=== PATIENT | male | born 1940 ===

== ENCOUNTER 2016-06-19 18:43 | Inpatient (IN) | payer MEDICARE, OTHER ==
[2016-06-19] MEDS ORDERED: PANTOPRAZOLE 40 MG/10 ML VIAL IVP STA (20:44)
[2016-06-19] MEDS ORDERED: SODIUM CHLORIDE 0.9% 1,000 ML IV STA (20:44)
--- NOTE | 2016-06-19 20:47 | ED ---
General Adult HPI - General Chief complaint: GI Bleed Stated complaint: GI bleed Time Seen by Provider: 06/19/16 20:13 Source: patient, family, RN notes reviewed Mode of arrival: wheelchair Limitations: no limitations - History of Present Illness Initial comments: Patient is a pleasant 76-year-old male presenting to the emergency department for rectal bleeding. Symptoms have been present for the past for 5 days. Patient has bright red blood per rectum. Patient was seen at [facility] a couple of days ago and told his symptoms were from hemorrhoids. Patient was advised to discontinue his eliquis. Last dose was on Saturday. Patient had a follow-up at [place] today and was told his liver and kidney test were not looking good. Patient has been somewhat more fatigued than normal. Patient does complain of some mild abdominal discomfort. - Related Data Home Medications Medication Instructions Recorded Confirmed Carvedilol 6.25 mg PO BID 01/17/15 06/19/16 Divalproex [Depakote] 250 mg PO TID 01/17/15 06/19/16 Atorvastatin [Lipitor] 20 mg PO DAILY 08/22/15 06/19/16 Enalapril [Vasotec] 5 mg PO DAILY 08/22/15 06/19/16 Spironolactone [Aldactone] 25 mg PO QAM 08/22/15 06/19/16 Isosorbide Mononitrate ER [Imdur] 30 mg PO DAILY 08/31/15 06/19/16 Potassium Chloride [Klor-Con 10] 10 meq PO DAILY 08/31/15 06/19/16 hydrALAZINE HCL [Apresoline] 50 mg PO TID 08/31/15 06/19/16 Apixaban [Eliquis] 5 mg PO DAILY 06/19/16 06/19/16 Donepezil [Aricept] 5 mg PO DAILY 06/19/16 06/19/16 Furosemide [Lasix] 20 mg PO DAILY 06/19/16 06/19/16 Hydrocortisone Cream 1 applic TOPICAL DAILY PRN 06/19/16 06/19/16 [Hydrocortisone 1% Cream] Previous Rx's Medication Instructions Recorded Folic Acid 1 mg PO DAILY #30 01/27/14 Omeprazole [PriLOSEC] 20 mg PO AC-BRKFST #30 08/13/14 Allergies Allergy/AdvReac Type Severity Reaction Status Date / Time milk thistle (Silybum Allergy Severe Anaphylaxis Verified 06/19/16 20:36 marianum) Review of Systems ROS Statement: Those systems with pertinent positive or pertinent negative responses have been documented in the HPI. ROS Other: All systems not noted in ROS Statement are negative. Constitutional: Denies: fever Eyes: Denies: eye pain ENT: Denies: ear pain Respiratory: Denies: cough Cardiovascular: Denies: chest pain Endocrine: Reports: fatigue Gastrointestinal: Reports: abdominal pain, hematochezia Genitourinary: Denies: dysuria Musculoskeletal: Denies: back pain Skin: Denies: rash Neurological: Reports: weakness (Generalized) Past Medical History Past Medical History: Atrial Fibrillation, Coronary Artery Disease (CAD), Cancer , Chest Pain / Angina, Heart Failure, COPD, Hyperlipidemia, Hypertension, Myocardial Infarction ([place]), Prostate Disorder, Seizure Disorder Additional Past Medical History / Comment(s): Prostate cancer status post chemo and radiation and posterior resection Last Myocardial Infarction Date:: unknown History of Any Multi-Drug Resistant Organisms: None Reported Past Surgical History: AICD, Heart Catheterization With Stent, Prostate Surgery Additional Past Surgical History / Comment(s): Patient states he has had 8 or 9 stents placed in his heart, prostate resection for cancer, right [id number] amputation for peripheral vascular disease. defibrilator placed on 08/22/2015 Past Anesthesia/Blood Transfusion Reactions: No Reported Reaction Date of Last Stent Placement:: unknown Type of Cardiac Device: AICD Device Placement Date:: 08/22/15 Past Psychological History: Bipolar, Depression Additional Psychological History / Comment(s): IS COMPLIANT WITH MEDICATION REGIME (HAS NOT BEEN IN THE PAST) Smoking Status: Current some day smoker Past Alcohol Use History: None Reported Additional Past Alcohol Use History / Comment(s): QUIT, SMOKED SINCE HE WAS 18, HALF PPD. PAST USE OF MARIJUANA. [place] and had exposure to agent orange. , NIECE, JAYASHREE IS HIS MEDICAL GUARDIAN Past Drug Use History: None Reported - Past Family History Father Family Medical History: Myocardial Infarction ([place]) Additional Family Medical History / Comment(s): Father at age 56 from a myocardial infarction. Mother Family Medical History: Cancer Additional Family Medical History / Comment(s): Mother at age 74 from bladder cancer with metastases to the bone. Brother(s) Family Medical History: Myocardial Infarction ([place]) Additional Family Medical History / Comment(s): Patient had 1 brother that at age 60 from a myocardial infarction Sister(s) Additional Family Medical History / Comment(s): PARKINSONS General Exam Limitations: no limitations General appearance: alert, in no apparent distress Head exam: Present: atraumatic Eye exam: Present: normal appearance, PERRL ENT exam: Present: normal oropharynx Neck exam: Present: normal inspection Respiratory exam: Present: normal lung sounds bilaterally Cardiovascular Exam: Present: regular rate, normal rhythm GI/Abdominal exam: Present: soft. Absent: distended, tenderness, guarding, rebound, rigid Rectal exam: Present: bloody stool exam: Present: normal inspection Extremities exam: Present: other (Right AKA) Neurological exam: Present: alert Psychiatric exam: Present: normal affect, normal mood Skin exam: Absent: rash Course Vital Signs 06/19/16 06/19/16 19:19 21:18 Temperature 98.1 F Pulse Rate 54 L 65 Respiratory 18 18 Rate Blood Pressure 104/57 115/58 O2 Sat by Pulse 91 L 97 Oximetry Medical Decision Making - Medical Decision Making Patient reexamined and resting comfortably in bed. Patient updated on results and plan. Case discussed in detail with Dr. Copeland, who will admit for Dr. Del Castillo. Ultrasound and consult for nephrology secondary to acute renal failure. - Lab Data Result diagrams: 06/19/16 20:36 06/19/16 20:36 Lab Results 06/19/16 06/19/16 06/19/16 Range/Units 20:26 20:36 20:36 WBC 8.1 (3.8-10.6) k/uL RBC 4.03 L (4.30-5.90) m/uL Hgb 13.5 (13.0-17.5) gm/dL Hct 40.7 (39.0-53.0) % MCV 101.1 H (80.0-100.0) fL MCH 33.6 (25.0-35.0) pg MCHC 33.2 (31.0-37.0) g/dL RDW 14.2 (11.5-15.5) % Plt Count 119 L (150-450) k/uL Neutrophils % 77 % Lymphocytes % 7 % Monocytes % 13 % Eosinophils % 1 % Basophils % 1 % Neutrophils # 6.2 (1.3-7.7) k/uL Lymphocytes # 0.5 L (1.0-4.8) k/uL Monocytes # 1.0 (0-1.0) k/uL Eosinophils # 0.1 (0-0.7) k/uL Basophils # 0.0 (0-0.2) k/uL Macrocytosis Slight PT (9.0-12.0) sec INR (<1.1) APTT (22.0-30.0) sec Sodium (137-145) mmol/L Potassium (3.5-5.1) mmol/L Chloride (98-107) mmol/L Carbon Dioxide (22-30) mmol/L Anion Gap mmol/L BUN (9-20) mg/dL Creatinine (0.66-1.25) mg/dL Est GFR (MDRD) Af Amer (>60 ml/min/1.73 sqM) Est GFR (MDRD) Non-Af (>60 ml/min/1.73 sqM) Glucose (74-99) mg/dL Calcium (8.4-10.2) mg/dL Total Bilirubin (0.2-1.3) mg/dL AST (17-59) U/L ALT (21-72) U/L Alkaline Phosphatase (38-126) U/L Total Creatine Kinase 52 L (55-170) U/L CK-MB (CK-2) 1.1 (0.0-2.4) ng/mL CK-MB (CK-2) Rel Index 2.1 Troponin I 0.023 (0.000-0.034) ng/mL Total Protein (6.3-8.2) g/dL Albumin (3.5-5.0) g/dL Stool Occult Blood (Negative) Blood Type B Positive Blood Type Confirm Blood Type Recheck CABO Indicated Antibody Screen NEGATIVE Spec Expiration Date 06/22/2016 - 233506/19/16 06/19/16 06/19/16 Range/Units 20:36 20:36 20:36 WBC (3.8-10.6) k/uL RBC (4.30-5.90) m/uL Hgb (13.0-17.5) gm/dL Hct (39.0-53.0) % MCV (80.0-100.0) fL MCH (25.0-35.0) pg MCHC (31.0-37.0) g/dL RDW (11.5-15.5) % Plt Count (150-450) k/uL Neutrophils % % Lymphocytes % % Monocytes % % Eosinophils % % Basophils % % Neutrophils # (1.3-7.7) k/uL Lymphocytes # (1.0-4.8) k/uL Monocytes # (0-1.0) k/uL Eosinophils # (0-0.7) k/uL Basophils # (0-0.2) k/uL Macrocytosis PT 10.5 (9.0-12.0) sec INR 1.0 (<1.1) APTT 22.8 (22.0-30.0) sec Sodium 139 (137-145) mmol/L Potassium 4.7 (3.5-5.1) mmol/L Chloride 103 (98-107) mmol/L Carbon Dioxide 21 L (22-30) mmol/L Anion Gap 15 mmol/L BUN 64 H (9-20) mg/dL Creatinine 2.81 H (0.66-1.25) mg/dL Est GFR (MDRD) Af Amer 27 (>60 ml/min/1.73 sqM) Est GFR (MDRD) Non-Af 22 (>60 ml/min/1.73 sqM) Glucose 91 (74-99) mg/dL Calcium 8.7 (8.4-10.2) mg/dL Total Bilirubin 0.7 (0.2-1.3) mg/dL AST 111 H (17-59) U/L ALT 236 H (21-72) U/L Alkaline Phosphatase 112 (38-126) U/L Total Creatine Kinase (55-170) U/L CK-MB (CK-2) (0.0-2.4) ng/mL CK-MB (CK-2) Rel Index Troponin I (0.000-0.034) ng/mL Total Protein 6.9 (6.3-8.2) g/dL Albumin 3.7 (3.5-5.0) g/dL Stool Occult Blood (Negative) Blood Type Blood Type Confirm B Positive Blood Type Recheck Antibody Screen Spec Expiration Date 06/19/16 Range/Units 21:15 WBC (3.8-10.6) k/uL RBC (4.30-5.90) m/uL Hgb (13.0-17.5) gm/dL Hct (39.0-53.0) % MCV (80.0-100.0) fL MCH (25.0-35.0) pg MCHC (31.0-37.0) g/dL RDW (11.5-15.5) % Plt Count (150-450) k/uL Neutrophils % % Lymphocytes % % Monocytes % % Eosinophils % % Basophils % % Neutrophils # (1.3-7.7) k/uL Lymphocytes # (1.0-4.8) k/uL Monocytes # (0-1.0) k/uL Eosinophils # (0-0.7) k/uL Basophils # (0-0.2) k/uL Macrocytosis PT (9.0-12.0) sec INR (<1.1) APTT (22.0-30.0) sec Sodium (137-145) mmol/L Potassium (3.5-5.1) mmol/L Chloride (98-107) mmol/L Carbon Dioxide (22-30) mmol/L Anion Gap mmol/L BUN (9-20) mg/dL Creatinine (0.66-1.25) mg/dL Est GFR (MDRD) Af Amer (>60 ml/min/1.73 sqM) Est GFR (MDRD) Non-Af (>60 ml/min/1.73 sqM) Glucose (74-99) mg/dL Calcium (8.4-10.2) mg/dL Total Bilirubin (0.2-1.3) mg/dL AST (17-59) U/L ALT (21-72) U/L Alkaline Phosphatase (38-126) U/L Total Creatine Kinase (55-170) U/L CK-MB (CK-2) (0.0-2.4) ng/mL CK-MB (CK-2) Rel Index Troponin I (0.000-0.034) ng/mL Total Protein (6.3-8.2) g/dL Albumin (3.5-5.0) g/dL Stool Occult Blood Positive (Negative) Blood Type Blood Type Confirm Blood Type Recheck Antibody Screen Spec Expiration Date Disposition Clinical Impression: Lower GI hemorrhage, Acute renal failure (ARF) Disposition: ADMITTED IP TO THIS HOSP
[2016-06-19 21:20] LABS: Basophils % (A) 1 %; CH 34.2; Eosinophils # (A) 0.1 k/uL (0-0.7); Eosinophils % (A) 1 %; HCT 40.7 % (39.0-53.0); HDW 2.43; HGB 13.5 gm/dL (13.0-17.5); Luc # (Auto) 0.14; Luc % (Auto) 2; Lymphocytes # (A) 0.5 k/uL (1.0-4.8); Lymphocytes % (A) 7 %; MCH 33.6 pg (25.0-35.0); MCHC 33.2 g/dL (31.0-37.0); MCV 101.1 fL (80.0-100.0); Macrocytosis Slight; Mean Platelet Volume 8.3; Monocytes % (A) 13 %; Neutrophils # (A) 6.2 k/uL (1.3-7.7); Neutrophils % (A) 77 %; RBC 4.03 m/uL (4.30-5.90); RDW 14.2 % (11.5-15.5); WBC 8.1 k/uL (3.8-10.6); WBC (Perox) 8.11
[2016-06-19 21:29] LABS: Partial Thromboplastin Time 22.8 sec (22.0-30.0); Prothrombin Time 10.5 sec (9.0-12.0)
[2016-06-19 21:36] LABS: Calcium 8.7 mg/dL (8.4-10.2); Potassium 4.7 mmol/L (3.5-5.1); Total Bilirubin 0.7 mg/dL (0.2-1.3); Total Protein 6.9 g/dL (6.3-8.2)
[2016-06-19 21:54] LABS: Creatine Kinase MB 1.1 ng/mL (0.0-2.4); Troponin I 0.023 ng/mL (0.000-0.034)
[2016-06-19] MEDS ORDERED: NALOXONE 0.4 MG/ML 1 ML VIAL IV PRN (22:34)
[2016-06-20] MEDS: SODIUM CHLORIDE 0.9% 1,000 ML IV SCH ×3 (00:47→21:01)
--- NOTE | 2016-06-20 08:06 | US ---
EXAMINATION TYPE: US kidneys/renal and bladder DATE OF EXAM: 06/19/2016 11:35 PM COMPARISON: None. CLINICAL HISTORY: ARF, hx of prostate cancer. EXAM MEASUREMENTS: Right Kidney: 10.3 x 5.7 x 5.1 cm Left Kidney: 6.7 x 3.3 x 3.2 cm TECHNOLOGIST IMPRESSION: Right Kidney: wnl Left Kidney: echogenic, atrophy Bladder: posterior lesion vs thickened posterior wall = 1.4 x 3.0 x 0.7 cm Right Jets seen There is no evidence for hydronephrosis at this point in time. No nephrolithiasis is seen. No violet s are identified. The urinary bladder is anechoic. Bilateral ureteral jets are seen. IMPRESSION: 1. No evidence of hydronephrosis or nephrolithiasis. 2. Atrophic change, left kidney. Normal Values: Renal Length = 9 - 12cm Bladder Wall: < 0.3cm
[2016-06-20 08:10] LABS: Basophils % (A) 0 %; CH 33.7; CHCM 33.4; Eosinophils # (A) 0.2 k/uL (0-0.7); Eosinophils % (A) 4 %; HCT 35.4 % (39.0-53.0); HDW 2.43; HGB 11.6 gm/dL (13.0-17.5); Luc # (Auto) 0.19; Luc % (Auto) 4; Lymphocytes # (A) 0.5 k/uL (1.0-4.8); Lymphocytes % (A) 11 %; MCH 33.1 pg (25.0-35.0); MCHC 32.7 g/dL (31.0-37.0); MCV 101.3 fL (80.0-100.0); Macrocytosis Slight; Mean Platelet Volume 7.2; Monocytes # (A) 0.7 k/uL (0-1.0); Monocytes % (A) 13 %; Neutrophils # (A) 3.5 k/uL (1.3-7.7); Neutrophils % (A) 69 %; RBC 3.49 m/uL (4.30-5.90); RDW 14.1 % (11.5-15.5); WBC 5.1 k/uL (3.8-10.6); WBC (Perox) 5.35
[2016-06-20 08:40] LABS: Calcium 8.2 mg/dL (8.4-10.2); Potassium 4.2 mmol/L (3.5-5.1)
--- NOTE | 2016-06-20 10:09 | P.CONS ---
History of Present Illness - Reason for Consult Consult date: 06/20/16 rectal bleeding Requesting physician: Yared Copeland - History of Present Illness 76-year-old gentleman [place] patient of Dr. Clark with a past medical history of prostate carcinoma 1968 status post chemoradiation, exposure to agent orange, coronary artery disease with multiple PCI/stent, [place], hyperlipidemia, hypertension, Clostridium difficile August 2015, hemorrhoids, seizures, peripheral vascular disease with right BKA, heart failure with AICD, COPD, and bipolar disorder. Admitted with increased BUN/creatinine, rectal bleeding mixed black/bright red in nature 5 days without pain and decreased appetite. He was placed on Eliquis last August but discontinued 3 days ago. He was recently evaluated at [facility] regarding rectal bleeding told it was hemorrhoids and discharged. Upon review of medical records he was evaluated by surgery year ago in regards to rectal bleeding and again was told he had hemorrhoids. Patient has not had a colonoscopy in more than 5 years possibly 10 years; he is unsure. No history of EGD. Denies diarrhea, constipation, weight loss or hematemesis. Midepigastric pain has been present for about a week or so. No history of peptic ulcer disease or EGD. Last colonoscopy between 5 and 10 years ago. Admission hemoglobin 13.5 currently 11.6. White count 8.1. INR 1.0. BUN 64. Creatinine 2.8. Ultrasound kidneys renal bladder no evidence of hydronephrosis or nephrolithiasis. Review of Systems All systems: negative (See HPI) Past Medical History Past Medical History: Atrial Fibrillation, Coronary Artery Disease (CAD), Cancer , Chest Pain / Angina, Heart Failure, COPD, Hyperlipidemia, Hypertension, Myocardial Infarction ([place]), Prostate Disorder, Seizure Disorder Additional Past Medical History / Comment(s): Prostate cancer status post chemo and radiation and posterior resection 1968 Last Myocardial Infarction Date:: unknown History of Any Multi-Drug Resistant Organisms: None Reported Past Surgical History: AICD, Heart Catheterization With Stent, Prostate Surgery Additional Past Surgical History / Comment(s): Patient states he has had 8 or 9 stents placed in his heart, prostate resection for cancer, right [id number] amputation for peripheral vascular disease. defibrilator placed on 08/22/2015 Past Anesthesia/Blood Transfusion Reactions: No Reported Reaction Date of Last Stent Placement:: unknown Type of Cardiac Device: AICD Device Placement Date:: 08/22/15 Past Psychological History: Bipolar, Depression Additional Psychological History / Comment(s): IS COMPLIANT WITH MEDICATION REGIME (HAS NOT BEEN IN THE PAST) Smoking Status: Current some day smoker Past Alcohol Use History: None Reported Additional Past Alcohol Use History / Comment(s): QUIT, SMOKED SINCE HE WAS 18, HALF PPD. PAST USE OF MARIJUANA. [place] and had exposure to agent orange. , NIECE, JAYASHREE IS HIS MEDICAL GUARDIAN Past Drug Use History: None Reported - Past Family History Father Family Medical History: Myocardial Infarction ([place]) Additional Family Medical History / Comment(s): Father at age 56 from a myocardial infarction. Mother Family Medical History: Cancer Additional Family Medical History / Comment(s): Mother at age 74 from bladder cancer with metastases to the bone. Brother(s) Family Medical History: Myocardial Infarction ([place]) Additional Family Medical History / Comment(s): Patient had 1 brother that at age 60 from a myocardial infarction Sister(s) Additional Family Medical History / Comment(s): PARKINSONS Medications and Allergies Home Medications Medication Instructions Recorded Confirmed Type Carvedilol 6.25 mg PO BID 01/17/15 06/19/16 History Divalproex [Depakote] 250 mg PO TID 01/17/15 06/19/16 History Atorvastatin [Lipitor] 20 mg PO DAILY 08/22/15 06/19/16 History Enalapril [Vasotec] 5 mg PO DAILY 08/22/15 06/19/16 History Spironolactone [Aldactone] 25 mg PO QAM 08/22/15 06/19/16 History Isosorbide Mononitrate ER [Imdur] 30 mg PO DAILY 08/31/15 06/19/16 History Potassium Chloride [Klor-Con 10] 10 meq PO DAILY 08/31/15 06/19/16 History hydrALAZINE HCL [Apresoline] 50 mg PO TID 08/31/15 06/19/16 History Apixaban [Eliquis] 5 mg PO DAILY 06/19/16 06/19/16 History Donepezil [Aricept] 5 mg PO DAILY 06/19/16 06/19/16 History Furosemide [Lasix] 20 mg PO DAILY 06/19/16 06/19/16 History Hydrocortisone Cream 1 applic TOPICAL DAILY PRN 06/19/16 06/19/16 History [Hydrocortisone 1% Cream] Allergies Allergy/AdvReac Type Severity Reaction Status Date / Time milk thistle (Silybum Allergy Severe Anaphylaxis Verified 06/19/16 20:36 marianum) Physical Exam Vitals: Vital Signs Temp Pulse Pulse Resp BP BP Pulse Ox 06/20/16 07:00 97 F L 67 16 116/66 96 06/20/16 00:33 97.9 F 65 18 114/69 97 06/19/16 23:29 80 18 144/63 95 06/19/16 22:35 63 18 112/70 96 Intake and Output 06/19/16 06/20/16 06/20/16 22:59 06:59 14:59 Intake Total 960 Balance 960 Intake: IV 960 Sodium Chloride 0.9% 1, 960 000 ml @ 120 mls/hr IV . Q8H20M GUIDO Rx#:[id number] Other: Voiding Method Bedside Commode # Bowel Movements 1 Weight 68 kg General appearance: The patient is alert, oriented, in no acute distress. HET: Head is normocephalic and atraumatic. Pupils are equal and reactive. Oropharynx is clear without lesions. Neck: Supple without lymphadenopathy. Trachea midline. Heart: S1 S2. Regular rate and rhythm. Lungs: No crackles or wheezes are heard. Abdomen: Soft, mild midepigastric tenderness, nondistended with bowel sounds. No peritoneal signs. No palpable organomegaly or masses. Extremities: Right BKA. Normal skin color and turgor. No cyanosis, rash, ulceration, clubbing, or edema. Radial and pedal pulses are 2/4 bilaterally. Neurological: No focal deficits. Strength and sensation are grossly intact. Results CBC & Chem 7: 06/20/16 07:36 06/20/16 07:36 Labs: Abnormal Lab Results - Last 24 Hours (Table) 06/20/16 06/20/16 Range/Units 07:36 07:36 RBC 3.49 L (4.30-5.90) m/uL Hgb 11.6 L (13.0-17.5) gm/dL Hct 35.4 L (39.0-53.0) % MCV 101.3 H (80.0-100.0) fL Plt Count 103 L (150-450) k/uL Lymphocytes # 0.5 L (1.0-4.8) k/uL Chloride 110 H (98-107) mmol/L BUN 46 H (9-20) mg/dL Creatinine 2.05 H (0.66-1.25) mg/dL Calcium 8.2 L (8.4-10.2) mg/dL Assessment and Plan (1) Rectal bleeding Narrative/Plan: 76-year-old gentleman with a history of prostate carcinoma status post surgical resection with radiation, underlying hemorrhoids and cardiac history receiving dual antiplatelet medications presents with a five-day history of painless rectal bleeding with decreased appetite and elevated BUN/creatinine. Status: Acute Plan: 1. EGD colonoscopy tomorrow. 2. Liquid diet. Nothing by mouth after midnight. 3. Monitor CBC and kidney function. The manager of compliance has discussed the risks, benefits and alternative therapies for the above-mentioned procedure and for both sedation/analgesia as well as necessary blood product administration, if indicated, as they pertain to this patient. The patient has indicated understanding and acceptance of the risks and procedures discussed. Thank you for this kind referral and the opportunity to participate in the care of your patient. This consultation was discussed with Dr. Parnell. The impression and plan of care have been directed as dictated.
[2016-06-20] MEDS: PANTOPRAZOLE 40 MG/10 ML VIAL IV SCH (10:57)
[2016-06-20 12:48] LABS: Appearance,Urine Clear (Clear); Bilirubin,Urine Negative (Negative); Glucose,Urine (UA) Negative (Negative); Ketones,Urine Negative (Negative); Leukocyte Esterase,Urine Negative (Negative); Nitrite,Urine Negative (Negative); PH, Urine 5.5 (5.0-8.0); Protein,Urine Negative (Negative); UA Billing (MACRO vs. MICRO) CHEM; Urobilinogen,Urine <2.0 mg/dL (<2.0)
[2016-06-20] MEDS ORDERED: PEG 3350-NA SULF,BICARB,CL/KCL 4,000 ML BOTTLE PO ONE (15:00)
--- NOTE | 2016-06-20 17:37 | CONS ---
DATE OF CONSULTATION: 06/20/2016. REASON FOR CONSULTATION: Renal failure. HISTORY OF PRESENT ILLNESS: Patient is 76-year-old white male who was admitted to the hospital with bright red blood per rectum. He had been seen at [facility] previously for hemorrhoids and patient had been on Eliquis for his heart. He denies any prior history of kidney diseases. His serum creatinine on admission was at 2.8 mg/dL. It is now down to 2.05. Previous creatinine had been as low as 1.19 on 09/03/2015. Patient's blood pressure has been marginal staying at about 103 to 114 mmHg systolic. He denies the use of any nonsteroidal anti-inflammatory agents at home and home medications did include KAREN inhibitors. Currently patient is maintained on IV fluids at 120 mL/h. PAST MEDICAL HISTORY: Coronary artery disease, cardiomyopathy, hyperlipidemia, hypertension, history of myocardial infarction seizure disorder, prostatic cancer, status post chemo and radiation therapy and resection. PAST SURGICAL HISTORY: AICD placement, cardiac catheterization with coronary stent, prostatic surgery, right above knee amputation for peripheral vascular disease. SOCIAL HISTORY: Positive for smoking, patient has used marijuana in the past. No history of other drug abuse. REVIEW OF SYSTEMS: Negative for fever, chills, nausea, vomiting, abdominal pain. No shortness of breath. Medications prior to admission included: 1. Depakote. 2. Lipitor. 3. Vasotec. 4. Aldactone. 5. Imdur. 6. Potassium. 7. Hydralazine. 8. Eliquis. 9. ( ). 10. Lasix. 11. Folic acid. 12. Prilosec. ALLERGIES INCLUDE MILK THISTLE. On examination, the patient is comfortable, awake, alert, oriented x3, not in any acute distress. Blood pressure is 116/66, heart rate 67 per minute. He is afebrile. Examination of the heart S1 and S2. Examination of the lungs: Bilateral breath sounds are heard. Decreased breath sounds in bases. ABDOMEN: Soft, nontender. Examination of the lower extremities shows no evidence of edema and patient has right a.k.a. 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 Labs show sodium 144, potassium 4.2, chloride 110, BUN 46, serum creatinine 2.05. Hemoglobin 11.6 g/dL. UA is completely benign. Stool for occult blood was positive. ASSESSMENT: 1. Acute kidney injury; appears to be proceeding are currently improving. Continue with IV fluids. Continue to hold off on KAREN inhibitors. Urinalysis is completely benign. 2. Chronic kidney disease. Previous creatinine at 1.19 in August 2015 not sure if his kidney function has been better than that. 3. Gastrointestinal bleed being followed by surgery. No active bleeding noted at this time. 4. Chronic kidney disease with asymmetric kidneys. Left kidney is only at 6.7 cm right kidney 10.3 cm, NKF stage III, no evidence of ( ) stones on the ultrasound. Patient will need follow-up as outpatient. PLAN: Continue IV fluids. Continue to hold off on KAREN inhibitors and repeat labs in the a.m. Thank you for this consultation. Will continue to follow the patient with you during his hospitalization.
[2016-06-20] MEDS ORDERED: HYDROcodone/APAP 5-325MG 1 EACH TAB PO PRN (19:10)
[2016-06-20] MEDS ORDERED: ALPRAZolam 0.25 MG TAB PO PRN (19:10)
[2016-06-20] MEDS ORDERED: TEMAZEPAM 15 MG CAP PO PRN (19:10)
[2016-06-20] MEDS: DIVALPROEX 250 MG TABLET.DR PO SCH (21:17)
[2016-06-20] MEDS: hydrALAZINE HCL 50 MG TAB PO SCH (21:18)
[2016-06-20] MEDS: LACTATED RINGERS 1,000 ML IV SCH (22:32)
[2016-06-21] MEDS: CARVEDILOL 6.25 MG TAB PO SCH ×3 (01:09→16:29)
[2016-06-21] MEDS: SODIUM CHLORIDE 0.9% 1,000 ML IV SCH ×3 (01:09→13:06)
--- NOTE | 2016-06-21 07:35 | HP ---
DATE OF ADMISSION: The chief complaint is rectal bleeding. HISTORY OF PRESENT ILLNESS: This is a 76-year-old gentleman with a past medical history of multiple medical problems including atrial fibrillation, CAD, chest pain, angina, history of CHF, COPD, hypertension, hyperlipidemia, myocardial infarction, seizure disorder, prostate cancer, AICD, CABG, bipolar depression being followed by Dr. Mark Clark in the outpatient setting has presented with a 5-day history of rectal bleeding, history of blood per rectum. Patient went to [facility] and was thought to have hemorrhoids. Because of increase in difficulties, then patient came to [facility], admitted for further evaluation and treatment. Eliquis has been stopped and patient also seen Cardiology previously. There is no history of fever, rigors or chills. No history of headache, loss of consciousness. On admission, hemoglobin is 13.5, currently it is 11.6, creatinine is also elevated at 2.8 indicating acute on chronic renal failure. LFT is also elevated and the patient was evaluated with Gastroenterology and plan for possible endoscopies EGD and colonoscopy tomorrow. PAST MEDICAL HISTORY: History of atrial fibrillation was on Eliquis, CAD, history of chest pain, history of CHF, COPD, hypertension, hyperlipidemia, history of myocardial infarction, history of prostate disorder, history of seizure disorder, history for prostate cancer status post chemoradiation and resection in 1968, history of AICD, history of CAD, stent, history of right below-knee amputation due to peripheral vascular disease, history of bipolar depression. Medications prior to admission include: 1. Hydrocortisone 1% one application daily p.r.n. 2. Aricept 5 mg p.o. daily. 3. Vasotec 5 mg p.o. daily. 4. Depakote 50 mg p.o. t.i.d. 5. Coreg 6.5 mg p.o. b.i.d. 6. Lipitor 20 mg p.o. daily. 7. Lasix 20 mg p.o. daily. 8. Apresoline 50 mg p.o. t.i.d. 9. Aldactone 25 mg q.a.m. 10. Klor-Con 10 mEq p.o. daily. 11. Prilosec 20 mg a.c. breakfast. 12. Imdur ER 30 mg p.o. daily. 13. Folic acid 1 mg. 14. Eliquis 5 mg p.o. daily. Allergies are MILK THISTLE. FAMILY HISTORY: No history of heart disease or strokes in the family. SOCIAL HISTORY: History of smoking. Occasional alcohol intake. REVIEW OF SYSTEMS: ENT: No diminished hearing or diminished vision. CARDIOVASCULAR: No angina or palpitations. RESPIRATORY: No cough. GI: As mentioned earlier. : No dysuria. NERVOUS SYSTEM: No numbness or weakness. ALLERGY/IMMUNOLOGY: No asthma or hayfever. MUSCULOSKELETAL: As mentioned earlier. DERMATOLOGY: As mentioned earlier. ENDOCRINE: No history of diabetes or hypothyroidism. CONSTITUTIONAL: As mentioned earlier. RHEUMATOLOGY: Negative. PSYCHIATRY: As mentioned earlier. PHYSICAL EXAM: Patient is alert and oriented x3. Pulse 61, blood pressure 102/53, respirations 16, temperature 97.2, pulse ox 96% on room air. HEENT: Conjunctivae normal. NECK: No jugular venous distension. CARDIOVASCULAR SYSTEM: S1, S2, muffled. RESPIRATORY: Breath sounds diminished at the bases. A few scattered rhonchi, no crackles. Abdomen is soft, nontender. No mass palpable. No guarding or rigidity. EXTREMITIES: Status post right below-knee amputation. NERVOUS SYSTEM: Higher function as mentioned. Moves all 4 limbs. No focal motor deficits. LYMPHATICS: No lymph node enlargement in the neck, groin or axillae. SKIN: No ulcer, rash or bleeding. LABS: WBC is 5.1, hemoglobin is 11.6, MCV 101.3, platelets are 103, sodium 144, potassium 4.4. Creatinine is 2.05, AST is 111, ALT is 236. ASSESSMENT: 1. Lower gastrointestinal bleeding with acute blood loss anemia. 2. Anemia, macrocytic. 3. Thrombocytopenia. 4. Increased creatinine with acute on chronic renal failure, possibly prerenal failure with possibly chronic kidney disease stage III. 5. Increased AST, ALT; possible hepatitis of undetermined etiology. 6. History of atrial fibrillation. 7. History of chest pain, angina. 8. History of congestive heart failure. 9. History of chronic obstructive pulmonary disease. 10. Hypertension. 11. Hyperlipidemia. 12. History of prostate disorder. 13. History of seizure disorder. 14. History of prostate cancer as well as chemoradiation. 15. History of AICD. 16. Coronary artery disease and stent. 17. History of right below-knee amputation. 18. Bipolar depression. 19. History of nicotine dependence. 20. FULL CODE. RECOMMENDATION: In this 76-year-old gentleman who presented with the multiple complex medical issues, will monitor the patient closely, continue with the current medications, continue with the symptomatic treatment, proton pump inhibitors, otherwise, monitor hemoglobin closely. preparation. Hold antiplatelet agents and Eliquis. Otherwise, resume the rest of the medication. Guarded prognosis because of multiple complex medical issues. Further recommendations to follow. A copy of this will be forwarded to Dr. Clark who is the primary care physician. SARANYA
[2016-06-21 07:50] LABS: Basophils % (A) 0 %; CH 33.3; CHCM 31.5; Eosinophils # (A) 0.2 k/uL (0-0.7); Eosinophils % (A) 4 %; HCT 36.6 % (39.0-53.0); HDW 2.48; HGB 11.4 gm/dL (13.0-17.5); Luc # (Auto) 0.17; Luc % (Auto) 4; Lymphocytes # (A) 0.6 k/uL (1.0-4.8); Lymphocytes % (A) 15 %; MCH 33.1 pg (25.0-35.0); MCHC 31.1 g/dL (31.0-37.0); Macrocytosis Moderate; Mean Platelet Volume 8.1; Monocytes # (A) 0.5 k/uL (0-1.0); Monocytes % (A) 12 %; Neutrophils # (A) 2.5 k/uL (1.3-7.7); Neutrophils % (A) 64 %; RBC 3.44 m/uL (4.30-5.90); RDW 13.9 % (11.5-15.5); WBC 3.9 k/uL (3.8-10.6); WBC (Perox) 4.07
[2016-06-21 07:57] LABS: MCV 106.4 fL (80.0-100.0)
[2016-06-21 08:08] LABS: Anion Gap 11 mmol/L; Blood Urea Nitrogen 22 mg/dL (9-20); Calcium 8.1 mg/dL (8.4-10.2); Carbon Dioxide 23 mmol/L (22-30); Chloride 113 mmol/L (98-107); Glucose 84 mg/dL (74-99); Non-African American GFR(MDRD) 50 (>60 ml/min/1.73 sqM); Potassium 4.5 mmol/L (3.5-5.1); Sodium 147 mmol/L (137-145)
[2016-06-21] MEDS ORDERED: GLYCOPYRROLATE 0.2 MG/ML 2 ML VIAL ONE (09:00)
[2016-06-21] MEDS ORDERED: LIDOCAINE 1% INJ 10MG/ML (20 ML MDV) ONE (09:00)
[2016-06-21] MEDS ORDERED: PROPOFOL 10 MG/ML 20 ML VIAL IV ONE (09:00)
[2016-06-21] MEDS ORDERED: IV FLUID CONTINUATION 1,000 ML IV ONE (09:02)
--- NOTE | 2016-06-21 09:24 | P.PCN ---
Date of Procedure: 06/21/16 Procedure(s) Performed: Brief history: Patient is a pleasant 76-year-old white male, scheduled for an elective upper endoscopy as well as colonoscopy as a part of evaluation of acute GI bleed. He was admitted to the hospital because of several episodes of maroon colored stools for the last 2 days' duration. He had a similar episode about 4 days ago and went to the emergency room at [facility] and was discharged home. The patient stopped taking eloquis about 4 days ago but still continued to have bleeding and hence was admitted Procedure performed: Esophagogastroduodenoscopy Colonoscopy with biopsy Preoperative diagnosis: Acute GI bleed Anesthesia: [facility] Procedure: After informed consent was obtained from the patient was brought into the endoscopy unit and IV conscious sedation was administered by anesthesia under continuous monitoring. Initially upper endoscopy was done. The Olympus GF 160 video endoscope was inserted inserted into the mouth and esophagus intubated without any difficulty and was gradually advanced into the stomach and duodenum and carefully examined. The bulb and second part of the duodenum appeared normal. The scope was then withdrawn into the stomach adequately insufflated with air and upon careful examination the antrum had mild gastritis, and body, cardia and fundus appeared normal. The scope was then withdrawn into the esophagus. The GE junction was located at 40 cm to the incisors. It appeared regular with no erythema erosions or ulcerations. Rest of the esophagus appeared normal. Patient tolerated the procedure well. At this time the patient continued to remain sedation. Initial digital rectal examination was normal. Olympus CF 160 video colonoscope was then inserted into the rectum and gradually advanced to the cecum without any difficulty. Careful examination was performed as the scope was gradually being withdrawn. The prep was excellent. The cecum, ascending colon, transverse colon, descending colon, appeared normal. There was segmental colitis extending from 20-50 cm from the anal verge with mucosal erythema and friability but no erosions or ulcerations consistent with ischemic colitis was infectious colitis. Multiple biopsies were done from this area. The rest of the sigmoid colon and rectum appeared normal. I did sigmoid diverticulosis seen. Retroflexion was performed in the rectum and grade 2 internal hemorrhoids were noted. Patient tolerated the procedure well. Impression: 1. Upper endoscopy revealed mild antral gastritis but no evidence of peptic ulcer disease 2. Colonoscopy revealed: a) segmental colitis involving the sigmoid colon extending from 20-50 cm from the anal verge with mucosal erythema and he will follow up in office in 2 weeks. friability consistent with ischemic colitis versus infectious colitis b) scattered similar diverticulosis c) grade 2 internal hemorrhoids Recommendations: Findings of this examination were discussed with the patient . He was advised to follow with the biopsy results. His diet will be advanced as tolerated and the patient admitted discharged home. He was advised to hold off on the eloquis for 3-4 days.
[2016-06-21] MEDS: DIVALPROEX 250 MG TABLET.DR PO SCH ×3 (10:15→22:49)
[2016-06-21] MEDS: hydrALAZINE HCL 50 MG TAB PO SCH ×3 (10:16→22:50)
[2016-06-21] MEDS: LISINOPRIL 10 MG TAB PO SCH (10:16)
[2016-06-21] MEDS: FUROSEMIDE 20 MG TAB PO SCH (10:17)
[2016-06-21] MEDS: DONEPEZIL 5 MG TAB PO SCH (10:18)
[2016-06-21] MEDS: ISOSORBIDE MONONITRATE ER 30 MG TAB.ER.24H PO SCH (10:18)
[2016-06-21] MEDS: ATORVASTATIN 20 MG TAB PO SCH (10:18)
[2016-06-21] MEDS: PANTOPRAZOLE 40 MG/10 ML VIAL IV SCH (10:18)
[2016-06-21] MEDS: FOLIC ACID 1 MG TAB PO SCH (10:19)
[2016-06-21] MEDS: SPIRONOLACTONE 25 MG TAB PO SCH (10:19)
[2016-06-21] MEDS: POTASSIUM CHLORIDE ER 10 MEQ TAB.ER.PRT PO SCH (10:19)
--- NOTE | 2016-06-21 19:26 | PN ---
Patient is seen for followup for acute kidney injury. He was admitted to the hospital with GI bleed. His serum creatinine continues to improve. It is down to 1.39 from 2.81 mg/dL. Patient is maintained on IV fluids with normal saline at 120 mL/h. He is scheduled for EGD today. On examination, blood pressure this morning was 121/56, heart rate 56 per minute. He is afebrile. HEART: S1 and S2. LUNGS: Good air entry bilaterally. Abdomen is soft, nontender. Lower extremities show no evidence of edema. Patient has a right AKA. EQUITIES TRADER is grossly intact. Labs show sodium of 147, potassium 4.5, chloride 113, BUN 22, serum creatinine 1.39. ASSESSMENT: 1. Acute kidney injury, prerenal, currently significantly improved. 2. Gastrointestinal bleed; scheduled for scope today, scheduled for EGD and colonoscopy. 3. Mild hypernatremia. Will change IV fluids to half normal saline. PLAN: Change IV fluids to half normal saline and repeat labs in a.m.
[2016-06-21] MEDS: LACTATED RINGERS 1,000 ML IV SCH (22:50)
[2016-06-21] MEDS: SODIUM CHLORIDE 0.45% 1,000 ML IV SCH (22:54)
[2016-06-22 08:04] LABS: Basophils # (A) 0.1 k/uL (0-0.2); Basophils % (A) 1 %; CH 33.6; CHCM 32.8; Eosinophils # (A) 0.2 k/uL (0-0.7); Eosinophils % (A) 4 %; HCT 33.8 % (39.0-53.0); HDW 2.51; Luc # (Auto) 0.13; Luc % (Auto) 3; Lymphocytes # (A) 0.7 k/uL (1.0-4.8); Lymphocytes % (A) 14 %; MCH 33.7 pg (25.0-35.0); MCHC 32.7 g/dL (31.0-37.0); MCV 102.9 fL (80.0-100.0); Macrocytosis Slight; Monocytes # (A) 0.5 k/uL (0-1.0); Monocytes % (A) 10 %; Neutrophils # (A) 3.4 k/uL (1.3-7.7); Neutrophils % (A) 69 %; RBC 3.28 m/uL (4.30-5.90); RDW 13.8 % (11.5-15.5); WBC 4.9 k/uL (3.8-10.6)
[2016-06-22 08:17] VITALS: RESP 18
[2016-06-22 08:23] LABS: Calcium 8.3 mg/dL (8.4-10.2); Potassium 4.6 mmol/L (3.5-5.1)
[2016-06-22] MEDS: DIVALPROEX 250 MG TABLET.DR PO SCH (08:49)
[2016-06-22] MEDS: PANTOPRAZOLE 40 MG/10 ML VIAL IV SCH (08:49)
[2016-06-22] MEDS: CARVEDILOL 6.25 MG TAB PO SCH (08:49)
[2016-06-22] MEDS: hydrALAZINE HCL 50 MG TAB PO SCH (08:49)
[2016-06-22] MEDS: ISOSORBIDE MONONITRATE ER 30 MG TAB.ER.24H PO SCH (08:50)
[2016-06-22] MEDS: POTASSIUM CHLORIDE ER 10 MEQ TAB.ER.PRT PO SCH (08:50)
[2016-06-22] MEDS: DONEPEZIL 5 MG TAB PO SCH (08:50)
[2016-06-22] MEDS: ATORVASTATIN 20 MG TAB PO SCH (08:50)
[2016-06-22] MEDS: LISINOPRIL 10 MG TAB PO SCH (08:50)
[2016-06-22] MEDS: SODIUM CHLORIDE 0.45% 1,000 ML IV SCH (08:50)
[2016-06-22] MEDS: FUROSEMIDE 20 MG TAB PO SCH (08:52)
[2016-06-22] MEDS: SPIRONOLACTONE 25 MG TAB PO SCH (08:52)
[2016-06-22] MEDS: FOLIC ACID 1 MG TAB PO SCH (08:52)
--- NOTE | 2016-06-22 10:45 | PN ---
DATE OF SERVICE: 06/21/2016 This 76-year-old male who was admitted with acute bleeding, lower GI bleeding, is being closely monitored at this time. The patient underwent EGD and colonoscopy by Dr. Parnell. The upper endoscope showed mild antral gastritis. Colonoscopy revealed segmental colitis involving the sigmoid colon, possibly indicating ischemic or infectious colitis and diverticulosis and grade 2 internal hemorrhoids also noted. No chest pain or palpitations. No fever. On exam, alert, oriented x3. Pulse 62, blood pressure 92/62, respirations 18, temperature 97.4, pulse ox 94% on room air. HEENT: Conjunctivae normal. NECK: No jugular venous distention. CARDIOVASCULAR: S1 and S2 muffled. LUNGS: Breath sounds diminished at the bases. No rhonchi, no crackles. ABDOMEN: Soft, mild diffuse tenderness. No guarding or rigidity. LEGS: No edema. NERVOUS SYSTEM: No focal deficits. LABS: WBC is 3.9, hemoglobin 11.4. Sodium 147, creatinine is 1.39. ASSESSMENT: 1. Lower gastrointestinal bleeding with acute blood loss anemia secondary to possible ischemic colitis or infectious colitis in the sigmoid area, status post colonoscopy. 2. Mild antral gastritis and degenerative joint disease. 3. Anemia, macrocytic. 4. Thrombocytopenia. 5. Increased creatinine with acute on chronic renal failure, possible prerenal failure with possible chronic kidney disease stage III. 6. Increased AST, ALT; possible hepatitis of undetermined etiology. 7. History of atrial fibrillation. 8. History of chest pain and angina. 9. History of congestive heart failure, ejection fraction unknown. 10. Chronic obstructive pulmonary disease. 11. Hypertension. 12. Hyperlipidemia. 13. History of prostate disorder. 14. History of seizure disorder. 15. History of prostate cancer with chemo radiation. 16. History of AICD. 17. History of coronary artery disease with stent history. 18. History of right below knee amputation. 19. Bipolar depression, not otherwise specified. 20. History of nicotine dependence. 21. FULL CODE. RECOMMENDATIONS AND DISCUSSION: In this 76-year-old gentleman who presented with multiple complex medical issues, we will monitor the patient closely, continue with current medications and symptomatic treatment. I have recommended to follow the patient with repeat labs. Otherwise advance diet. Creatinine is improving at this time. Guarded prognosis because of multiple complex medical issues. Await biopsy report from Dr. Parnell. Further recommendations to follow.
--- NOTE | 2016-06-22 11:25 | P.PN ---
Subjective Principal diagnosis: Colitis 76-year-old male limited with rectal bleeding status post EGD colonoscopy with findings of mild antral gastritis, segmental sigmoid colitis scattered reticulosis a grade 2 internal hemorrhoids. No rectal bleeding. Tolerating diet. Feels better. Anticipate discharge. Afebrile. Hemoglobin 11.0. Objective - Vital Signs Vital signs: Vital Signs Temp 97.9 F 06/22/16 07:00 Pulse 58 L 06/22/16 07:00 Resp 18 06/22/16 07:00 BP 106/58 06/22/16 07:00 Pulse Ox 96 06/22/16 07:00 Intake & Output 06/21/16 06/22/16 06/22/16 18:59 06:59 18:59 Intake Total 1010 600 Balance 1010 600 Weight 69.5 kg Intake: IV 1010 Sodium Chloride 0.9% 1, 960 000 ml @ 120 mls/hr IV . [id number] [facility] Rx#:[id number] Intake, IV Titration 600 Amount Sodium Chloride 0.45% 1, 600 000 ml @ 75 mls/hr IV . [id number] [facility]O Rx#:[id number] Other: Voiding Method Urinal Urinal Urinal # Voids 1 - Exam General appearance: The patient is alert, oriented, in no acute distress. HET: Head is normocephalic and atraumatic. Pupils are equal and reactive. Oropharynx is clear without lesions. Neck: Supple without lymphadenopathy. Trachea midline. Heart: S1 S2. Regular rate and rhythm. Lungs: No crackles or wheezes are heard. Abdomen: Soft, mild midepigastric tenderness, nondistended with bowel sounds. No peritoneal signs. No palpable organomegaly or masses. Extremities: Right BKA. Normal skin color and turgor. No cyanosis, rash, ulceration, clubbing, or edema. Radial and pedal pulses are 2/4 bilaterally. Neurological: No focal deficits. Strength and sensation are grossly intact. - Labs CBC & Chem 7: 06/22/16 07:08 06/22/16 07:08 Labs: Abnormal Lab Results - Last 24 Hours (Table) 06/22/16 06/22/16 Range/Units 07:08 07:08 RBC 3.28 L (4.30-5.90) m/uL Hgb 11.0 L (13.0-17.5) gm/dL Hct 33.8 L (39.0-53.0) % MCV 102.9 H (80.0-100.0) fL Plt Count 116 L (150-450) k/uL Lymphocytes # 0.7 L (1.0-4.8) k/uL Creatinine 1.48 H (0.66-1.25) mg/dL Glucose 126 H (74-99) mg/dL Calcium 8.3 L (8.4-10.2) mg/dL Microbiology - Last 24 Hours (Table) 06/20/16 12:30 Urine Culture - Final Urine,Clean Catch Assessment and Plan (1) Rectal bleeding Narrative/Plan: 76-year-old gentleman with a history of prostate carcinoma status post surgical resection with radiation, underlying hemorrhoids and cardiac history receiving dual antiplatelet medications presents with a five-day history of painless rectal bleeding status post EGD with findings of mild antral gastritis, sigmoid had mental colitis scattered diverticulosis grade 2 internal hemorrhoids. Status: Acute Plan: 1. Agreeable for discharge. Return to office in 1-2 weeks. Patient has an appointment with guest services representative on Saturday. Patient expressed his desire to hold antiplatelet medications until he sees his guest services representative. 2. Slow advancement of diet over the next few days. We'll follow as needed. Assessment plan of care discussed with Dr. Parnell.
[2016-06-22 14:59] VITALS: BMI 24.0
[2016-06-22 15:39] VITALS: BP 109/56; PULSE 54; TEMP 98
--- NOTE | 2016-06-22 22:19 | PN ---
Patient is seen for followup for acute kidney injury which was mainly prerenal. His renal function has improved, with serum creatinine down to about 1.4 from 2.0 mg/dL earlier. He was admitted to the hospital with GI bleed. He was maintained on IV fluids. He did have an EGD and colonoscopy which showed evidence of mild gastritis; no active bleeding was noted. Segmental colitis was seen which seemed consistent with ischemic versus infectious colitis. Patient is actually being discharged today. On examination, blood pressure is 106/58, heart rate 58 per minute. He is afebrile. EXAMINATION OF THE HEART: S1 and S2. EXAMINATION OF THE LUNGS: Bilateral breath sounds are heard. Good air entry bilaterally. Examination of lower extremities shows no evidence of edema. Patient has right AKA. MULTI SLIDE MACHINE TENDER exam is otherwise grossly intact. Labs show serum creatinine of 1.4, sodium 143, potassium 4.6. Hemoglobin 11.0. ASSESSMENT: 1. Acute kidney injury, prerenal, currently improved. 2. Chronic kidney disease, most likely secondary to nephrosclerosis. Patient should follow up as outpatient. His previous creatinine had been as low as 1.2 and 1.19 mg/dL in August of 2015. The ultrasound showed atrophic left kidney. PLAN: Patient is stable for discharge. He should follow up as outpatient for CKD.
--- NOTE | 2016-06-23 10:28 | DS ---
DATE OF ADMISSION: 06/19/2016 DATE OF DISCHARGE: 06/22/2016 FINAL DIAGNOSES: 1. Lower gastrointestinal bleed secondary to acute blood loss anemia secondary to possible ischemic colitis, infectious colitis in sigmoid area, status post colonoscopy. 2. Mild antral gastritis and degenerative joint disease. 3. Anemia, microcytic. 4. Thrombocytopenia. 5. Increased creatinine with acute on chronic renal failure, possible prerenal factors and possible chronic kidney disease, stage III. 6. Increased AST, ALT, possible hepatitis, etiology. 7. History of atrial fibrillations. 8. History of chest pain, angina. 9. History of congestive heart failure, ejection fraction unknown. 10. Chronic obstructive pulmonary disease. 11. Hypertension. 12. Hyperlipidemia. 13. History of prostate disorder. 14. History of seizure disorder. 15. History of prostate cancer with chemo and radiation. 16. History of automatic implantable cardiovascular defibrillator. 17. History of coronary artery disease and stent history. 18. History of right below knee amputation. 19. Bipolar, depression, not otherwise specified. 20. History of nicotine dependence. 21. FULL CODE. DISCHARGE DISPOSITION: The patient will be discharged in stable condition with guarded prognosis. Discharge cleared by Gastroenterology. HISTORY OF PRESENT ILLNESS: This 76-year-old gentleman with a past medical history of multiple medical problems including lower GI bleeding, colitis ischemic versus infectious was suspected. Dr. Parnell saw the patient and recommended the patient for discharge. Colonoscopy done by Dr. Parnell. Biopsy pending. Otherwise, currently the hemoglobin stable at 11. On exam, vitals are stable. CARDIOVASCULAR: S1, S2. ABDOMEN: Soft, nontender. NERVOUS SYSTEM: No focal deficits. DISCHARGE ADVICE: 1. Diet is low residue, soft, bland. 2. Follow up with Dr. Clark in 2 to 3 days and CBC and BMP. 3. Follow with Dr. Darlin Parnell and Dr. Tootie Parnell as recommended for Cardiology and Gastroenterology. MEDICATIONS: 1. Lipitor 20 mg p.o. daily. 2. Coreg 6.25 mg p.o. b.i.d. 3. Cipro 500 mg p.o. b.i.d. for 5 days. 4. Depakote 250 mg p.o. t.i.d. 5. Aricept 5 mg p.o. daily. 6. Folic acid 1 mg p.o. daily. 7. Lasix 20 mg p.o. daily. 8. Hydrocortisone local application. 9. Imdur ER 30 mg p.o. daily. 10. Prilosec 20 mg a.c. daily. 11. Klor-Con 20 mEq p.o. daily. 12. Aldactone 25 mg q.a.m. 13. Apresoline 50 mg p.o. t.i.d. 14. Flagyl 500 mg q8 p.r.n. Once again, the patient will be discharged in a stable condition with guarded prognosis. MTDD
== END 2016-06-22 16:10 | disposition home or self-care (01) | DRG 392 ==
LOC: EC 18:43 → 5MS5E 22:34
PROVIDERS: ADMIT Internal Medicine; ATTEND Internal Medicine
PROC: 0DJ08ZZ Inspection of Upper Intestinal Tract, Via Natural or Artificial Opening Endoscopic (ICD-10-PCS; principal; 2016-06-21 10:50)
PROC: 0DBN8ZX Excision of Sigmoid Colon, Via Natural or Artificial Opening Endoscopic, Diagnostic (ICD-10-PCS; 2016-06-21 10:50)
DX: A09 Infectious gastroenteritis and colitis, unspecified (principal); N17.9 Acute kidney failure, unspecified; E87.0 Hyperosmolality and hypernatremia; I42.9 Cardiomyopathy, unspecified; D69.6 Thrombocytopenia, unspecified; D62 Acute posthemorrhagic anemia; N18.3 Chronic kidney disease, stage 3 (moderate); I50.9 Heart failure, unspecified; I13.0 Hypertensive heart and chronic kidney disease with heart failure and stage 1 through stage 4 chronic kidney disease, or unspecified chronic kidney disease; K92.2 Gastrointestinal hemorrhage, unspecified; K75.9 Inflammatory liver disease, unspecified; I48.91 Unspecified atrial fibrillation; K29.60 Other gastritis without bleeding; K64.1 Second degree hemorrhoids; J44.9 Chronic obstructive pulmonary disease, unspecified; G40.909 Epilepsy, unspecified, not intractable, without status epilepticus; Z89.611 Acquired absence of right leg above knee; D50.9 Iron deficiency anemia, unspecified; K57.30 Diverticulosis of large intestine without perforation or abscess without bleeding; I25.10 Atherosclerotic heart disease of native coronary artery without angina pectoris; I25.2 Old myocardial infarction; E78.5 Hyperlipidemia, unspecified; N26.1 Atrophy of kidney (terminal); R53.1 Weakness; N42.9 Disorder of prostate, unspecified; I73.9 Peripheral vascular disease, unspecified; M19.90 Unspecified osteoarthritis, unspecified site; D53.9 Nutritional anemia, unspecified; F31.9 Bipolar disorder, unspecified; F17.200 Nicotine dependence, unspecified, uncomplicated; F12.90 Cannabis use, unspecified, uncomplicated; Z95.810 Presence of automatic (implantable) cardiac defibrillator; Z92.3 Personal history of irradiation; Z92.21 Personal history of antineoplastic chemotherapy; Z85.46 Personal history of malignant neoplasm of prostate; Z95.5 Presence of coronary angioplasty implant and graft; Z95.1 Presence of aortocoronary bypass graft; Z80.52 Family history of malignant neoplasm of bladder; Z82.49 Family history of ischemic heart disease and other diseases of the circulatory system; Z82.0 Family history of epilepsy and other diseases of the nervous system; Z91.048 Other nonmedicinal substance allergy status; Z79.01 Long term (current) use of anticoagulants; Z79.891 Long term (current) use of opiate analgesic; Z79.899 Other long term (current) drug therapy; Z90.79 Acquired absence of other genital organ(s); Z87.19 Personal history of other diseases of the digestive system; Z86.19 Personal history of other infectious and parasitic diseases; Z80.8 Family history of malignant neoplasm of other organs or systems; Z77.098 Contact with and (suspected) exposure to other hazardous, chiefly nonmedicinal, chemicals
CPT/HCPCS: 36415; 43235; 45380; 76770; 80048; 80053; 81003; 82272; 82550; 82553; 84484; 85025; 85610; 85730; 86850; 86900; 86901; 87086; 88305; 96361; 96374; 99153; 99285

== ENCOUNTER 2016-10-08 05:47 | Day surgery (SDC) | payer MEDICARE, OTHER ==
[2016-10-05 12:01] VITALS: BMI 23.3
[2016-10-08] MEDS ORDERED: SODIUM CHLORIDE 0.9% 1,000 ML IV SCH ×2 (06:09→09:30)
[2016-10-08] MEDS ORDERED: LACTATED RINGERS 1,000 ML IV SCH (06:09)
[2016-10-08 07:25] VITALS: TEMP 98.5
[2016-10-08 07:31] LABS: Calcium 8.6 mg/dL (8.4-10.2); Potassium 4.2 mmol/L (3.5-5.1)
[2016-10-08] MEDS ORDERED: IV FLUID CONTINUATION 500 ML IV ONE (09:01)
[2016-10-08] MEDS ORDERED: PROPOFOL 10 MG/ML 20 ML VIAL IV ONE (09:17)
--- NOTE | 2016-10-08 09:32 | P.PCN ---
Date of Procedure: 10/08/16 Preoperative Diagnosis: Ischemic cardiomyopathy, status post AICD placement, increased the pacing threshold and episodes of V. tach Postoperative Diagnosis: Satisfactory. DFT Procedure(s) Performed: DFT testing Description of Procedure: This is a 76-year-old gentleman with history of ischemic cardiomyopathy and chronic systolic congestive heart failure, who had AICD implantation for primary prevention. Patient was noted to have 2 episodes of ventricular tachycardia for which he received ATP. Patient threshold measurements showed increasing ventricular pacing threshold which is acceptable. Patient is brought in for elective DFT testing. Patient and family were explained the risks and benefits of the procedure. Patient was brought to the lab in a fasting state. He was prepped and draped in the usual fashion. He was given anesthesia by department of anesthesia. Ventricular fibrillation was induced with T shock. Synchronized shocks of 11 J followed with 21 J was applied. Patient converted to sinus rhythm with a 21 J shock. His pacing thresholds and an impedance is remained stable. The charge time. Further 11 J shock was 1.9 seconds and lead impedance was 60 ohms. The charge time for the second shock was 2.3 seconds. Patient remained stable postprocedure. Plan. Patient will be monitored for the next couple of hours. Patient will be discharged home to continue home medications. Follow-up in the office in one week time.
[2016-10-08 10:54] VITALS: PULSE 54
[2016-10-08 10:56] VITALS: RESP 18
[2016-10-08 12:39] VITALS: BP 165/72
== END 2016-10-08 11:30 | disposition home or self-care (01) ==
LOC: CATHEP 05:47
PROVIDERS: ATTEND Internal Medicine Cardiovascular Disease
DX: Z45.02 Encounter for adjustment and management of automatic implantable cardiac defibrillator (principal); I47.2 Ventricular tachycardia; I50.22 Chronic systolic (congestive) heart failure; I25.5 Ischemic cardiomyopathy; I48.91 Unspecified atrial fibrillation; I10 Essential (primary) hypertension; E78.5 Hyperlipidemia, unspecified; K21.9 Gastro-esophageal reflux disease without esophagitis; R56.9 Unspecified convulsions; F31.9 Bipolar disorder, unspecified; Z79.02 Long term (current) use of antithrombotics/antiplatelets; Z79.899 Other long term (current) drug therapy; I25.2 Old myocardial infarction
CPT/HCPCS: 93642; 80048; J2704

== ENCOUNTER 2017-02-01 16:12 | Inpatient (IN) | payer MEDICARE, OTHER ==
[2017-02-01] MEDS ORDERED: SODIUM CHLORIDE 0.9% 500 ML IV STA (17:19)
--- NOTE | 2017-02-01 17:29 | ED ---
General Adult HPI - General Chief complaint: Psychiatric Symptoms Stated complaint: Mental Health, Diff Breathing Time Seen by Provider: 02/01/17 17:12 Source: patient, RN notes reviewed Mode of arrival: ambulatory Limitations: no limitations - History of Present Illness Initial comments: 76-year-old male presents to the emergency department with a chief complaint of difficulty sleeping and suicidal ideation. Patient is a manic depressive and takes Depakote. Patient states he's been having racing thoughts for the last many months causing him not to be able to sleep. Patient states also developed some suicidal thoughts with a concern and possible plan that he may cut his wrist. Patient states that he chronically suffers is chronically short of breath this is been going on for years. Patient states it is much like normal. Patient states he's also had some abdominal pain associated with his symptoms and they started just generalized pain no specific area hurting more than the other no changes in bowel or bladder habits no changes in eating or drinking. Patient states that he feels like he needs help for his racing thoughts and his inability to sleep so he thought that he should come here to receive that help. Patient denies any recent fever, chills,chest pain, back pain, nausea vomiting, numbness or tingling, dysuria or hematuria, constipation or diarrhea, headaches or visual changes, or any other current symptoms. - Related Data Home Medications Medication Instructions Recorded Confirmed Atorvastatin [Lipitor] 20 mg PO DAILY 08/22/15 02/01/17 Isosorbide Mononitrate ER [Imdur] 30 mg PO DAILY 08/31/15 02/01/17 Potassium Chloride [Klor-Con 10] 10 meq PO DAILY 08/31/15 02/01/17 hydrALAZINE HCL [Apresoline] 50 mg PO TID 08/31/15 02/01/17 Donepezil [Aricept] 10 mg PO DAILY 06/19/16 02/01/17 Amiodarone [Cordarone] 200 mg PO DAILY 10/08/16 02/01/17 Apixaban [Eliquis] 2.5 mg PO BID 10/08/16 02/01/17 Valproic Acid 250 mg PO DAILY 10/08/16 02/01/17 Aspirin EC [Ecotrin Low Dose] 81 mg PO DAILY 02/01/17 02/01/17 Carvedilol [Coreg] 12.5 mg PO BID 02/01/17 02/01/17 Divalproex Sodium [Depakote] 250 mg PO TID 02/01/17 02/01/17 Furosemide [Lasix] 20 mg PO DAILY 02/01/17 02/01/17 Previous Rx's Medication Instructions Recorded Folic Acid 1 mg PO DAILY #30 01/27/14 Omeprazole [PriLOSEC] 20 mg PO AC-BRKFST #30 01/27/14 Allergies Allergy/AdvReac Type Severity Reaction Status Date / Time milk thistle (Silybum Allergy Severe Anaphylaxis Verified 02/01/17 17:32 marianum) Review of Systems ROS Statement: Those systems with pertinent positive or pertinent negative responses have been documented in the HPI. ROS Other: All systems not noted in ROS Statement are negative. Past Medical History Past Medical History: Atrial Fibrillation, Coronary Artery Disease (CAD), Cancer , Chest Pain / Angina, Heart Failure, COPD, Hyperlipidemia, Hypertension, Myocardial Infarction ([place]), Prostate Disorder, Seizure Disorder Additional Past Medical History / Comment(s): Prostate cancer status post chemo and radiation and posterior resection 1968, newly dx. Parkinsons. Last Myocardial Infarction Date:: unknown History of Any Multi-Drug Resistant Organisms: C-DIFF Date of last positivie culture/infection: August, MDRO Source:: Stool Past Surgical History: AICD, Heart Catheterization With Stent, Prostate Surgery Additional Past Surgical History / Comment(s): Patient states he has had 8 or 9 stents placed in his heart, prostate resection for cancer, right [id number] amputation for peripheral vascular disease. defibrilator placed on 08/22/2015 Past Anesthesia/Blood Transfusion Reactions: No Reported Reaction Date of Last Stent Placement:: unknown Type of Cardiac Device: AICD Device Placement Date:: 08/22/15 Past Psychological History: Bipolar, Depression Smoking Status: Current some day smoker Past Alcohol Use History: None Reported Past Drug Use History: None Reported - Past Family History Father Family Medical History: Myocardial Infarction ([place]) Additional Family Medical History / Comment(s): Father at age 56 from a myocardial infarction. Mother Family Medical History: Cancer Additional Family Medical History / Comment(s): Mother at age 74 from bladder cancer with metastases to the bone. Brother(s) Family Medical History: Myocardial Infarction ([place]) Additional Family Medical History / Comment(s): Patient had 1 brother that at age 60 from a myocardial infarction Sister(s) Additional Family Medical History / Comment(s): PARKINSON[place] General Exam Limitations: no limitations General appearance: alert, in no apparent distress Head exam: Present: atraumatic, normocephalic, normal inspection Eye exam: Present: normal appearance, PERRL, EOMI. Absent: scleral icterus, conjunctival injection, periorbital swelling ENT exam: Present: normal exam, mucous membranes moist Neck exam: Present: normal inspection. Absent: tenderness, meningismus, lymphadenopathy Respiratory exam: Present: normal lung sounds bilaterally. Absent: respiratory distress, wheezes, rales, rhonchi, stridor Cardiovascular Exam: Present: regular rate, normal rhythm, normal heart sounds. Absent: systolic murmur, diastolic murmur, rubs, gallop, clicks GI/Abdominal exam: Present: soft, normal bowel sounds. Absent: distended, tenderness, guarding, rebound, rigid Neurological exam: Present: alert, oriented X3 Psychiatric exam: Present: agitated, anxious, manic, suicidal ideation. Absent : homicidal ideation Skin exam: Present: warm, dry, intact, normal color. Absent: rash Course Vital Signs 02/01/17 02/01/17 02/01/17 16:41 17:44 20:35 Temperature 98.9 F Pulse Rate 50 L 53 L 59 L Respiratory 20 18 18 Rate Blood Pressure 169/79 171/84 175/91 O2 Sat by Pulse 98 97 96 Oximetry 02/01/17 22:46 Temperature 97.8 F Pulse Rate 60 Respiratory 18 Rate Blood Pressure 159/76 O2 Sat by Pulse 96 Oximetry Medical Decision Making - Medical Decision Making 76-year-old male presents for racing thoughts and suicidal ideation. At this time the patient starts but does appear to be a chronic issue vital signs are stable exam is within normal limits. We'll do blood work on the patient as well as to an abdominal x-ray over the abdominal pain does appear to be chronic as well. This time patient's kidney function does appear to be chronic. At this time the patient's laboratory otherwise and x-rays do not show any acute medical emergencies. This time the patient is cleared to be evaluated by psychiatry. At this time patient was evaluated by psychiatry not recommending admission. We will give the patient Ativan to help him calm down tonight. We did discuss this with the patient he is seen. The plan. - Lab Data Result diagrams: 02/01/17 17:35 02/01/17 17:35 Lab Results 02/01/17 02/01/17 02/01/17 Range/Units 17:35 17:35 17:35 WBC 9.4 (3.8-10.6) k/uL RBC 4.11 L (4.30-5.90) m/uL Hgb 14.0 (13.0-17.5) gm/dL Hct 41.6 (39.0-53.0) % MCV 101.2 H (80.0-100.0) fL MCH 34.0 (25.0-35.0) pg MCHC 33.6 (31.0-37.0) g/dL RDW 15.3 (11.5-15.5) % Plt Count 168 (150-450) k/uL Neutrophils % 77 % Lymphocytes % 11 % Monocytes % 8 % Eosinophils % 2 % Basophils % 0 % Neutrophils # 7.3 (1.3-7.7) k/uL Lymphocytes # 1.0 (1.0-4.8) k/uL Monocytes # 0.7 (0-1.0) k/uL Eosinophils # 0.2 (0-0.7) k/uL Basophils # 0.0 (0-0.2) k/uL Macrocytosis Slight PT 10.9 (9.0-12.0) sec INR 1.1 (<1.2) APTT 22.9 (22.0-30.0) sec Sodium 142 (137-145) mmol/L Potassium 3.8 (3.5-5.1) mmol/L Chloride 106 (98-107) mmol/L Carbon Dioxide 28 (22-30) mmol/L Anion Gap 8 mmol/L BUN 21 H (9-20) mg/dL Creatinine 1.31 H (0.66-1.25) mg/dL Est GFR (MDRD) Af Amer >60 (>60 ml/min/1.73 sqM) Est GFR (MDRD) Non-Af 53 (>60 ml/min/1.73 sqM) Glucose 71 L (74-99) mg/dL Calcium 8.7 (8.4-10.2) mg/dL Total Bilirubin 0.5 (0.2-1.3) mg/dL AST 34 (17-59) U/L ALT 56 (21-72) U/L Alkaline Phosphatase 78 (38-126) U/L Total Protein 6.2 L (6.3-8.2) g/dL Albumin 3.6 (3.5-5.0) g/dL Amylase <30 L (30-110) U/L Lipase 80 (23-300) U/L Urine Color Urine Appearance (Clear) Urine pH (5.0-8.0) Ur Specific [place] (1.001-1.035) Urine Protein (Negative) Urine Glucose (UA) (Negative) Urine Ketones (Negative) Urine Blood (Negative) Urine Nitrite (Negative) Urine Bilirubin (Negative) Urine Urobilinogen (<2.0) mg/dL Ur Leukocyte Esterase (Negative) Urine Opiates Screen (NotDetected) Ur Oxycodone Screen (NotDetected) Urine Methadone Screen (NotDetected) Ur Propoxyphene Screen (NotDetected) Ur Barbiturates Screen (NotDetected) Valproic Acid ug/mL U Tricyclic Antidepress (NotDetected) Ur Phencyclidine Scrn (NotDetected) Ur Amphetamines Screen (NotDetected) U Methamphetamines Scrn (NotDetected) U Benzodiazepines Scrn (NotDetected) Urine Cocaine Screen (NotDetected) U Marijuana (THC) Screen (NotDetected) 02/01/17 02/01/17 Range/Units 17:35 19:01 WBC (3.8-10.6) k/uL RBC (4.30-5.90) m/uL Hgb (13.0-17.5) gm/dL Hct (39.0-53.0) % MCV (80.0-100.0) fL MCH (25.0-35.0) pg MCHC (31.0-37.0) g/dL RDW (11.5-15.5) % Plt Count (150-450) k/uL Neutrophils % % Lymphocytes % % Monocytes % % Eosinophils % % Basophils % % Neutrophils # (1.3-7.7) k/uL Lymphocytes # (1.0-4.8) k/uL Monocytes # (0-1.0) k/uL Eosinophils # (0-0.7) k/uL Basophils # (0-0.2) k/uL Macrocytosis PT (9.0-12.0) sec INR (<1.2) APTT (22.0-30.0) sec Sodium (137-145) mmol/L Potassium (3.5-5.1) mmol/L Chloride (98-107) mmol/L Carbon Dioxide (22-30) mmol/L Anion Gap mmol/L BUN (9-20) mg/dL Creatinine (0.66-1.25) mg/dL Est GFR (MDRD) Af Amer (>60 ml/min/1.73 sqM) Est GFR (MDRD) Non-Af (>60 ml/min/1.73 sqM) Glucose (74-99) mg/dL Calcium (8.4-10.2) mg/dL Total Bilirubin (0.2-1.3) mg/dL AST (17-59) U/L ALT (21-72) U/L Alkaline Phosphatase (38-126) U/L Total Protein (6.3-8.2) g/dL Albumin (3.5-5.0) g/dL Amylase (30-110) U/L Lipase (23-300) U/L Urine Color Yellow Urine Appearance Clear (Clear) Urine pH 6.0 (5.0-8.0) Ur Specific [place] 1.019 (1.001-1.035) Urine Protein Negative (Negative) Urine Glucose (UA) Negative (Negative) Urine Ketones Negative (Negative) Urine Blood Negative (Negative) Urine Nitrite Negative (Negative) Urine Bilirubin Negative (Negative) Urine Urobilinogen <2.0 (<2.0) mg/dL Ur Leukocyte Esterase Negative (Negative) Urine Opiates Screen Not Detected (NotDetected) Ur Oxycodone Screen Not Detected (NotDetected) Urine Methadone Screen Not Detected (NotDetected) Ur Propoxyphene Screen Not Detected (NotDetected) Ur Barbiturates Screen Not Detected (NotDetected) Valproic Acid <10.0 ug/mL U Tricyclic Antidepress Not Detected (NotDetected) Ur Phencyclidine Scrn Not Detected (NotDetected) Ur Amphetamines Screen Not Detected (NotDetected) U Methamphetamines Scrn Not Detected (NotDetected) U Benzodiazepines Scrn Not Detected (NotDetected) Urine Cocaine Screen Not Detected (NotDetected) U Marijuana (THC) Screen Not Detected (NotDetected) - Radiology Data Radiology results: report reviewed, image reviewed Disposition Clinical Impression: Depression Disposition: TRANSFER TO PSYCH HOSP/UNIT Time of Disposition: 22:49
[2017-02-01 17:46] LABS: Basophils % (A) 0 %; CH 34.6; CHCM 34.3; Eosinophils # (A) 0.2 k/uL (0-0.7); Eosinophils % (A) 2 %; HCT 41.6 % (39.0-53.0); HDW 2.82; Luc % (Auto) 2; Lymphocytes % (A) 11 %; MCHC 33.6 g/dL (31.0-37.0); MCV 101.2 fL (80.0-100.0); Macrocytosis Slight; Mean Platelet Volume 7.9; Monocytes # (A) 0.7 k/uL (0-1.0); Monocytes % (A) 8 %; Neutrophils # (A) 7.3 k/uL (1.3-7.7); Neutrophils % (A) 77 %; RBC 4.11 m/uL (4.30-5.90); RDW 15.3 % (11.5-15.5); WBC 9.4 k/uL (3.8-10.6); WBC (Perox) 9.46
[2017-02-01 17:54] LABS: ALT 56 U/L (21-72); AST 34 U/L (17-59); Alkaline Phosphatase 78 U/L (38-126); Amylase <30 U/L (30-110); Anion Gap 8 mmol/L; Blood Urea Nitrogen 21 mg/dL (9-20); Calcium 8.7 mg/dL (8.4-10.2); Carbon Dioxide 28 mmol/L (22-30); Chloride 106 mmol/L (98-107); Glucose 71 mg/dL (74-99); Non-African American GFR(MDRD) 53 (>60 ml/min/1.73 sqM); Potassium 3.8 mmol/L (3.5-5.1); Sodium 142 mmol/L (137-145); Total Bilirubin 0.5 mg/dL (0.2-1.3); Total Protein 6.2 g/dL (6.3-8.2)
[2017-02-01 17:56] LABS: INR 1.1 (<1.2); Partial Thromboplastin Time 22.9 sec (22.0-30.0); Prothrombin Time 10.9 sec (9.0-12.0)
--- NOTE | 2017-02-01 18:08 | XR ---
EXAMINATION TYPE: XR abdomen 2V DATE OF EXAM: 02/01/2017 COMPARISON: NONE HISTORY: Hernia operation. Abdominal pain. TECHNIQUE: 3 views FINDINGS: There is no sign of intestinal obstruction or pneumoperitoneum. Lung bases appear clear of consolidation. There is no sign of pleural effusion. There is atherosclerotic vascular calcification. There are surgical clips in the pelvis. There are vascular calcifications over the left kidney and p ancreas. IMPRESSION: Nonacute abdomen. Atherosclerotic vascular disease.
--- NOTE | 2017-02-01 18:49 | XR ---
EXAMINATION TYPE: XR chest 2V DATE OF EXAM: 02/01/2017 COMPARISON: 09/01/2015 HISTORY: Cough TECHNIQUE: Frontal and lateral views of the chest are obtained. FINDINGS: There is no heart failure nor pneumonic infiltrate. There is left axillary pacemaker with the lead tip in the right ventricle. Heart is borderline enlarged. There is no pleural effusion. Bony thorax is intact. IMPRESSION: No active cardiopulmonary disease. No change.
[2017-02-01 19:19] LABS: Appearance,Urine Clear (Clear); Bilirubin,Urine Negative (Negative); Glucose,Urine (UA) Negative (Negative); Ketones,Urine Negative (Negative); Leukocyte Esterase,Urine Negative (Negative); Nitrite,Urine Negative (Negative); Protein,Urine Negative (Negative); Specific Gravity,Urine 1.019 (1.001-1.035); UA Billing (MACRO vs. MICRO) CHEM; Urobilinogen,Urine <2.0 mg/dL (<2.0)
[2017-02-01] MEDS ORDERED: LORazepam 2 MG/ML SYRINGE IV STA (21:42)
[2017-02-01] MEDS ORDERED: LORazepam 1 MG TAB PO STA (22:49)
[2017-02-02] MEDS ORDERED: MAGNESIUM HYDROXIDE 2,400 MG/10 ML CUP PO PRN (00:08)
[2017-02-02] MEDS ORDERED: LORazepam 1 MG TAB PO PRN (00:08)
[2017-02-02] MEDS ORDERED: MAG HYDROX/AL HYDROX/SIMETH 30 ML CUP PO PRN (00:08)
[2017-02-02] MEDS ORDERED: ACETAMINOPHEN TAB 325 MG TAB PO PRN (00:08)
[2017-02-02] MEDS ORDERED: ZOLPIDEM 5 MG TAB PO PRN (04:27)
--- NOTE | 2017-02-02 05:40 | P.MDCNMH ---
History of Present Illness H&P Date: 02/02/17 (Medical consult response.) Chief Complaint: "I can't sleep for several months". This 76-year-old male with significant past medical history of hypertension, hyperlipidemia, coronary artery disease, cardiac arrhythmia/ atrial fibrillation, COPD, bipolar disorder, prostate cancer and questionable seizure disorder with last seizure was about 4 years ago, who presented to the emergency department with complaints of unable to sleep for several months and having racing thoughts. Patient stated that he is a and sees the psychiatrist at [facility] in [place]. Patient reports that his sleep was getting worse as he was unable to sleep due to having racing thoughts including thoughts of harming himself without plans. Patient stopped taking his Depakote several months ago and since then his insomnia was worse. Patient states that he may snooze here and there but he was unable to sleep peacefully for several hours at a time. Patient also states that his appetite has been decreased lately and his oral fluid intake is also decreased. Patient did complains of vague abdominal pain but unable to pinpoint where the pain is. Patient is unable to explain/give details about the quality of pain, associated symptoms, aggravating or relieving factors, radiation and the character of the pain. Patient denies nausea, vomiting or diarrhea associated with this abdominal pain. Pt. also c/o constipation lately as he has not had BM for the past two to three days, usually he has daily BMs as reported by him. Denies abdominal distension and reports passing gases from below. Review of Systems Constitutional: Reports as per HPI, Reports fatigue, Reports poor appetite Eyes: denies blurred vision, denies irritation, denies itching, denies loss of vision Ears: right: decreased hearing (Uses hearing aid.) Ears, nose, mouth and throat: Denies ant. neck pain, Denies bleeding gums, Denies dysphagia, Denies epistaxis, Denies headache, Denies hoarseness, Denies mouth pain, Denies nasal congestion, Denies nasal discharge, Denies neck fullness/pressure, Denies neck lump, Denies nose pain, Denies odynophagia, Denies post-nasal drip, Denies sinus pain, Denies sinus pressure, Denies swelling in mouth, Denies swelling in throat, Denies sore throat, Denies vertigo , Denies voice changes Cardiovascular: Denies chest pain, Denies claudication, Denies decreased exercise tolerance, Denies dyspnea on exertion, Denies irregular heart beat, Denies leg edema, Denies lightheadedness, Denies orthopnea, Denies palpitations , Denies paroxysmal nocturnal dyspnea Respiratory: Denies congestion, Denies cough with sputum, Denies dyspnea, Denies hemoptysis Gastrointestinal: Reports as per HPI, Reports constipation, Denies coffee ground emesis, Denies diarrhea, Denies early satiety, Denies heartburn, Denies hematemesis, Denies hematochezia, Denies indigestion Genitourinary: Denies dysuria, Denies flank pain, Denies kidney stones, Denies nocturia Musculoskeletal: Denies arm numbness/tingling, Denies atrophy, Denies fractures , Denies frequent falls, Denies gait dysfunction, Denies hot joints, Denies leg numbness/tingling, Denies limitation of motion, Denies loss of height, Denies low back pain, Denies morning stiffness, Denies muscle cramps, Denies muscle weakness, Denies myalgias, Denies neck pain, Denies neck stiffness, Denies redness of joints, Denies shooting arm pain, Denies shooting leg pain Psychiatric: Reports change in appetite, Reports change in sleep habits, Reports difficulty concentrating, Reports insomnia, Reports memory loss, Reports sleep disturbances, Reports suicidal ideation Endocrine: Denies cold intolerance, Denies excessive sweating, Denies excessive thirst, Denies fatigue, Denies flushing, Denies heat intolerance Past Medical History Past Medical History: Atrial Fibrillation, Coronary Artery Disease (CAD), Cancer , Chest Pain / Angina, Heart Failure, COPD, Dementia, Hearing Disorder / Deafness, Hyperlipidemia, Hypertension, Myocardial Infarction ([place]), Prostate Disorder, Seizure Disorder, Vascular Disorder Additional Past Medical History / Comment(s): Prostate cancer status post chemo and radiation and posterior resection 1968, newly dx. Parkinsons. Last Myocardial Infarction Date:: unknown History of Any Multi-Drug Resistant Organisms: C-DIFF Date of last positivie culture/infection: August, MDRO Source:: Stool Past Surgical History: AICD, Heart Catheterization With Stent, Prostate Surgery Additional Past Surgical History / Comment(s): Patient states he has had 8 or 9 stents placed in his heart, prostate resection for cancer, right [id number] amputation for peripheral vascular disease May-2011, Defibrilator placed on 2015 Past Anesthesia/Blood Transfusion Reactions: No Reported Reaction Date of Last Stent Placement:: unknown Type of Cardiac Device: AICD Device Placement Date:: 08/22/15 Past Psychological History: Bipolar, Depression Smoking Status: Former smoker Past Alcohol Use History: None Reported Additional Past Alcohol Use History / Comment(s): Quit smoking 2 months ago. Past Drug Use History: None Reported - Past Family History Father Family Medical History: Myocardial Infarction ([place]) Additional Family Medical History / Comment(s): Father at age 56 from a myocardial infarction. Mother Family Medical History: Cancer Additional Family Medical History / Comment(s): Mother at age 74 from bladder cancer with metastases to the bone. Brother(s) Family Medical History: Myocardial Infarction ([place]) Additional Family Medical History / Comment(s): Patient had 1 brother that at age 60 from a myocardial infarction Sister(s) Additional Family Medical History / Comment(s): PARKINSONS Medications and Allergies Home Medications Medication Instructions Recorded Confirmed Type Atorvastatin [Lipitor] 20 mg PO DAILY 08/22/15 02/01/17 History Isosorbide Mononitrate ER [Imdur] 30 mg PO DAILY 08/31/15 02/01/17 History Potassium Chloride [Klor-Con 10] 10 meq PO DAILY 08/31/15 02/01/17 History hydrALAZINE HCL [Apresoline] 50 mg PO TID 08/31/15 02/01/17 History Donepezil [Aricept] 10 mg PO DAILY 06/19/16 02/01/17 History Amiodarone [Cordarone] 200 mg PO DAILY 10/08/16 02/01/17 History Apixaban [Eliquis] 2.5 mg PO BID 10/08/16 02/01/17 History Valproic Acid 250 mg PO DAILY 10/08/16 02/01/17 History Aspirin EC [Ecotrin Low Dose] 81 mg PO DAILY 02/01/17 02/01/17 History Carvedilol [Coreg] 12.5 mg PO BID 02/01/17 02/01/17 History Divalproex Sodium [Depakote] 250 mg PO TID 02/01/17 02/01/17 History Furosemide [Lasix] 20 mg PO DAILY 02/01/17 02/01/17 History Allergies Allergy/AdvReac Type Severity Reaction Status Date / Time milk thistle (Silybum Allergy Severe Anaphylaxis Verified 02/01/17 17:32 marianum) Physical Exam Vitals: Vital Signs Temp Pulse Pulse Resp BP BP Pulse Ox 02/01/17 23:25 98.2 F 52 L 16 152/72 02/01/17 22:46 97.8 F 60 18 159/76 96 02/01/17 20:35 59 L 18 175/91 96 02/01/17 17:44 53 L 18 171/84 97 02/01/17 16:41 98.9 F 50 L 20 169/79 98 Intake and Output 02/01/17 02/01/17 02/02/17 14:59 22:59 06:59 Other: Weight 66.678 kg Patient Weight 02/02/17 06:59 Weight 66.678 kg - Constitutional 76 year old gentleman lying comfortably in bed, appears to be in no distress. General appearance: average body habitus, cooperative, no acute distress - EENT Eyes: edentulous, EOMI, PERRLA ENT: hard of hearing, normal oropharynx - Neck Neck: no lymphadenopathy, no rigidity, no stridor, no thyromegaly - Respiratory Respiratory: bilateral: CTA, negative: diminished, dullness, rales, rhonchi, wheezing, prolonged expiration, prolonged inspiration - Cardiovascular Heart rate: 65 Rhythm: regular Heart sounds: normal: S1, S2 Abnormal Heart Sounds: no systolic murmur, no diastolic murmur, no rub, no S3 Gallop - Gastrointestinal General gastrointestinal: no distended, no hepatomegaly, normal bowel sounds, no organomegaly, no rigid, no scaphoid, soft, no splenomegaly, no tenderness, no umbilical hernia, no ventral hernia - Integumentary Integumentary: no cellulitis, no cyanotic, normal, normal turgor, no rash, no ulcer - Neurologic Neurologic: CNII-XII intact - Musculoskeletal Musculoskeletal: strength equal bilaterally, no right sided weakness, no left sided weakness - Psychiatric Psychiatric: A&O x's 3, appropriate affect, intact judgment & insight Cranial Nerve Examination - Cranial Nerves Cranial Nerve I- Olfactory: Intact Cranial Nerve II- Optic: Intact Cranial Nerve III- Oculomotor: Intact Cranial Nerve IV- Trochlear: Intact Cranial Nerve V- Trigeminal: Intact Cranial Nerve - Abducens: Intact Cranial Nerve VII- Facial: Intact Cranial Nerve VIII- Auditory: Intact Cranial Nerve IX- Glossopharyngeal: Intact Cranial Nerve X- Vagus: Intact Cranial Nerve XI- Accessory: Intact Cranial Nerve XII- Hypoglossal: Intact Results CBC & Chem 7: 02/01/17 17:35 08 17:35 Labs: Abnormal Lab Results - Last 24 Hours (Table) 02/01/17 02/01/17 Range/Units 17:35 17:35 RBC 4.11 L (4.30-5.90) m/uL MCV 101.2 H (80.0-100.0) fL BUN 21 H (9-20) mg/dL Creatinine 1.31 H (0.66-1.25) mg/dL Glucose 71 L (74-99) mg/dL Total Protein 6.2 L (6.3-8.2) g/dL Amylase <30 L (30-110) U/L Chest x-ray: report reviewed, image reviewed (No acute infiltrate noted.) Abdominal x-ray: report reviewed, image reviewed (No air fluid levels noted, stool in colon noted without abnormal bowel gas patterns.) Assessment and Plan (1) Abdominal pain Narrative/Plan: Patient's abdominal pain although often ongoing for some time but now patient complains of vague abdominal pain for a few days associated with some constipation and has not had bowel movement for 2-3 days. Patient's clinical picture does not support an acute abdomen condition although patient will be treated with stool softeners and bowel care protocol will be initiated. Patient does have history of GERD and was on omeprazole in the past we will suggest to start maintenance dose therapy while in the hospital. Status: Acute (2) Acute renal failure (ARF) Narrative/Plan: Patient was on Lasix 20mg daily at home but since his oral food and fluid intake has decreased lately as reported by him and his kidney functions are on the low normal range will monitor him closely while he is in the hospital and if oral intake is improved when his Lasix will be restarted. Status: Acute (3) Insomnia disorder Narrative/Plan: Patient reports having sleep problems getting worse for the past 7 months and he also discontinued his Depakote about same time. I will defer the Depakote issue to the psychiatry services and I will check Depakene level in the morning. Patient received 1 mg of Ativan without help him sleep, I will try Ambien 5 mg one time dose now to induce sleep. This plan was discussed in detail with the patient and he agreed to try Ambien. Patient understand that once his manic episode will be controlled by the psychiatric medication his sleep will improve. Status: Acute (4) Dehydration Narrative/Plan: Since patient's oral intake has been decreased and he was continuously taking Lasix that has caused his dehydration and in return patient may become constipated due to it. Patient was advised to improve his oral intake of food and fluids and his renal function will be monitored. Patient's Lasix is held since admission. Status: Acute (5) HTN (hypertension) Narrative/Plan: Patient blood pressure is slightly worse/poorly controlled and this could be due to his anxiety and manic cycle of bipolar disorder. Patient home medication for the blood pressure control will be continued and his vitals will be monitored regularly while in the hospital. If needed patient medication will be adjusted accordingly. Status: Chronic (6) AICD (automatic cardioverter/defibrillator) present Narrative/Plan: Patient's heart rate is well controlled and his anticoagulation will be continued with Eliquis twice a day. Status: Chronic (7) CAD (coronary artery disease) Narrative/Plan: Patient's home medications for his coronary artery disease was reviewed and will be continued. Status: Chronic (8) Hyperlipemia Status: Chronic (9) Ischemic cardiomyopathy Narrative/Plan: Patient's Lasix is held and he needs to be monitored for signs and symptoms of fluid overload. At this point patient is on the dehydration side. Status: Chronic
[2017-02-02] MEDS ORDERED: POTASSIUM CHLORIDE ER 10 MEQ TAB.ER.PRT PO SCH (09:00)
[2017-02-02] MEDS: PANTOPRAZOLE 40 MG TABLET PO SCH (09:36)
[2017-02-02] MEDS: FOLIC ACID 1 MG TAB PO SCH (09:36)
[2017-02-02] MEDS: APIXABAN 2.5 MG TABLET PO SCH ×2 (09:36→20:53)
[2017-02-02] MEDS: CARVEDILOL 12.5 MG TAB PO SCH ×2 (09:36→20:53)
[2017-02-02] MEDS: hydrALAZINE HCL 50 MG TAB PO SCH ×3 (09:36→20:53)
[2017-02-02] MEDS: FUROSEMIDE 20 MG TAB PO SCH (09:36)
[2017-02-02] MEDS: DONEPEZIL 5 MG TAB PO SCH (09:36)
[2017-02-02] MEDS: ASPIRIN 81 MG CHEW PO SCH (09:36)
[2017-02-02] MEDS: AMIODARONE 200 MG TAB PO SCH (09:36)
[2017-02-02] MEDS: ATORVASTATIN 20 MG TAB PO SCH (09:36)
[2017-02-02] MEDS: ISOSORBIDE MONONITRATE ER 30 MG TAB.ER.24H PO SCH (09:36)
--- NOTE | 2017-02-02 19:38 | HP ---
DATE OF ADMISSION 02/01/17 IDENTIFYING DATA: This is a 76-year-old male patient. HISTORY OF PRESENT ILLNESS: Mr. Parisi presents to the inpatient psychiatry unit at [facility] with recent fluctuation of mood and not sleeping. The patient states he was not sleeping for greater than six and a half months and it was driving him crazy. He says one time four night ago he had a thought of suicide but says that he believes in [place] and the Bible. He does not think he would have ever done it. It is against his protestant. He says his mood has been up and down, both manic and depressed lately but more on the low side. He says it has been more on the low side because nobody comes around and he lives alone. PSYCHIATRIC HISTORY: He has been off his Depakote for three months. Not really sure why he came off it. He was taking 250 mg three times a day which did well for him. He said he saw the psychiatrist at the [facility] six months ago and it was raised to 1000 mg but he is scared to take that much. He has a history of bipolar disorder. He has two prior inpatient psychiatric admissions. He has never had any suicide attempts. PSYCHIATRIC FAMILY HISTORY: He says yes, he thinks many have bipolar disorder but they were not treated. PAST MEDICAL HISTORY: Atrial fibrillation, coronary artery disease, prostate cancer, chest pain, heart failure, COPD, hyperlipidemia, hypertension, myocardial infarction, seizure disorder. Current medications: 1. Tylenol prn. 2. Maalox prn. 3. Cordarone. 4. Eliquis. 5. Aspirin. 6. Lipitor. 7. Coreg. 8. Aricept. 9. Folate. 10. Lasix. 11. Apresoline. 12. Imdur. 13. Ativan prn. 14. Milk of magnesia prn. 15. Protonix. 16. Ambien prn . DRUG AND ALCOHOL HISTORY: The patient states that he used to drink but he did not overdo it and it was never a problem. SOCIAL HISTORY: He says he has a cat, a dog and a cockatiel. He lives in a trailer on his own. He does have a guardian who is his niece and she seems to be supportive. He was once and . He does not have any children. He has two stepsons. He is retired from the [employer]. 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 MENTAL STATUS EXAM: He is alert, in a wheelchair. He is cooperative. His speech is fluent, not rapid, or pressured. Thought processes are organized. Mood is describes at not bad. He denies any current thoughts of harm to other people. There is no evidence of active psychosis or agitation. He does not verbalize any hallucinations or cierra delusional thoughts. Cognitively he appears to be grossly intact. I do not note any significant disorientation or memory disturbances. Insight appears adequate. Judgment shows evidence of recent impairment, appears currently improved. IMPRESSION: Bipolar disorder, depressed with mixed features. PLAN/RECOMMENDATIONS: The patient will be admitted to the inpatient psychiatric unit at [facility] on a voluntary basis. He will be placed on SP 15 minute precautions. He will participate in group and activity therapy. Baseline laboratory workup will be done on the patient and medical consultation will be ordered. I will reinitiate his Depakote at 250 mg in the morning and 500 mg q.h.s. for mood stabilization. We will monitor how he responds. Monitor his sleep and monitor if any medications side effects. We will look into support symptoms. We will continue to cover this patient for Dr. Machuca through the weekend. Estimated length of stay is five to seven days. Prognosis guarded. MTDD
[2017-02-02] MEDS: DIVALPROEX 500 MG TABLET.DR PO SCH (20:53)
[2017-02-03] MEDS: CARVEDILOL 12.5 MG TAB PO SCH ×2 (06:28→21:10)
[2017-02-03] MEDS: FOLIC ACID 1 MG TAB PO SCH (09:15)
[2017-02-03] MEDS: DIVALPROEX 250 MG TABLET.DR PO SCH (09:15)
[2017-02-03] MEDS: DONEPEZIL 5 MG TAB PO SCH (09:15)
[2017-02-03] MEDS: AMIODARONE 200 MG TAB PO SCH (09:15)
[2017-02-03] MEDS: hydrALAZINE HCL 50 MG TAB PO SCH ×4 (09:16→21:10)
[2017-02-03] MEDS: ATORVASTATIN 20 MG TAB PO SCH (09:16)
[2017-02-03] MEDS: APIXABAN 2.5 MG TABLET PO SCH ×2 (09:17→21:10)
[2017-02-03] MEDS: PANTOPRAZOLE 40 MG TABLET PO SCH (09:18)
[2017-02-03] MEDS: ISOSORBIDE MONONITRATE ER 30 MG TAB.ER.24H PO SCH (09:18)
[2017-02-03] MEDS: ASPIRIN 81 MG CHEW PO SCH (09:18)
[2017-02-03 09:57] LABS: Calcium 8.8 mg/dL (8.4-10.2); Potassium 3.8 mmol/L (3.5-5.1)
[2017-02-03] MEDS ORDERED: DOCUSATE 100 MG CAP PO PRN (10:09)
[2017-02-03] MEDS: FUROSEMIDE 20 MG TAB PO SCH (10:14)
--- NOTE | 2017-02-03 10:43 | P.PN ---
Subjective Principal diagnosis: Abdominal pain Patient is a 76-year-old male with past medical history of cardiomyopathy with ejection fraction 17% and ICD, hypertension, dyslipidemia, atrial fibrillation, and coronary artery disease. He initially presented with racing thoughts and insomnia lasting several months. This occurred after he stopped his Depakote. He has been admitted to the psychiatric unit for further care. Initially on presentation he had complained of abdominal pain, he had a negative x-ray, he was started on a trial of the PPI. Patient seen and examined at bedside. He was sleeping but easily arousable. He states that his abdominal pain is better. He denies any nausea vomiting or diarrhea. He states it is 4 days he had a bowel movement taken as needed medication for this today. He denies any chest pain, shortness of breath, and edema. He states that he uses as needed breathing treatments at home for possible COPD. Objective - Vital Signs Vital signs: Vital Signs Temp 98.0 F 02/03/17 06:51 Pulse 68 02/03/17 09:00 Resp 16 02/03/17 09:00 BP 139/66 02/03/17 09:00 Pulse Ox 96 02/01/17 22:46 - Exam General: non toxic, no distress, appears at stated age Derm: no rashes, no lesions Head: atraumatic, normocephalic, symmetric Eyes: EOMI, no lid lag, anicteric sclera ENT: no post nasal drip, no thrush Mouth: no lip lesion, mucus membranes moist Cardiovascular: S1S2 reg, no murmur, positive posterior tibial pulse left Lungs: CTA bilateral, no rhonchi, no rales , no accessory muscle use Abdominal: soft, nontender to palpation, no guarding, no appreciable organomegaly Ext: no gross muscle atrophy, no edema, no contractures Neuro: CN II-XI grossly intact, no focal neuro deficits Psych: Alert, oriented, flat affect - Labs CBC & Chem 7: 02/01/17 17:35 02/03/17 09:22 Labs: Abnormal Lab Results - Last 24 Hours (Table) 02/03/17 Range/Units 09:22 BUN 22 H (9-20) mg/dL Creatinine 1.44 H (0.66-1.25) mg/dL Glucose 130 H (74-99) mg/dL Assessment and Plan (1) Abdominal pain Narrative/Plan: Resolved with the use of PPI, like due to GERD Status: Resolved (2) Ischemic cardiomyopathy Narrative/Plan: Chronic sytolic cardiomyopathy, EF 17%- follows with Dr. Gates and at the [place], continue with coreg, lipitor, lasix/potassium, lisinopril in place of enalapril. ASA and imdur. Monitor for signs of increasing edema. Status: Chronic (3) HTN (hypertension) Narrative/Plan: uncontrolled, likely due to anxiety, continue lasix, hydralazine, coreg, and imdur. Add back ACEI. Follow BP. Status: Chronic (4) Chronic kidney disease (CKD) stage G3a/A1, moderately decreased glomerular filtration rate (GFR) between 45-59 mL/min/1.73 square meter and albuminuria creatinine ratio less than 30 mg/g Narrative/Plan: Baseline Cr is 1.45 and appears at baseline, continue lasix, add back ACEI, Check BMP on 02/06 Status: Chronic (5) Bipolar disease, manic Narrative/Plan: as per psych management Status: Acute (6) Chronic a-fib Narrative/Plan: rate controlled, on amio/coreg/eliquis Status: Acute Plan: Chronic: Dyslipidemia CAD COPD- will ordered prn albuterol [place] Seizure disorder ? Resolved: Insomnia Ruled out: HUBER With this patients complex medical conditions please do not hesitate to call us with change in clinical status. Will plan to follow intermittently. Thank you for allowing us to participate in the care of your patient.
[2017-02-03] MEDS: ALBUTEROL INHALER 60 PUFF/8 GM INHALER INHALATION PRN ×2 (16:50→21:33)
--- NOTE | 2017-02-03 19:04 | P.PN ---
Progress Note - Text Interval history: Patient is seen in cross coverage today for Dr. Machuca. He reports that he was able to rest better last night. He seems to be tolerating the Depakote fine. Overall his mood seems improved today. He does describe today that he was also off his dementia medicine because he ran out of it. He reports that his sisters came to visit him today and they thought his eyes looked better. Mental status exam: He is alert and cooperative with the interview. He is seated in a wheelchair. His speech is fluent, not rapid or pressured. His mood overall seems improved. He has not verbalize any thoughts of harm to self or others. No evidence of active psychosis or any agitation. Plan: We'll maintain Depakote as current. Would check a Depakote level during the hospital course as we have reinitiated . Dr. Machuca will be initiating his care on Saturday.
[2017-02-03] MEDS: DIVALPROEX 500 MG TABLET.DR PO SCH (21:10)
[2017-02-04] MEDS: ALBUTEROL INHALER 60 PUFF/8 GM INHALER INHALATION PRN ×2 (08:44→12:34)
[2017-02-04] MEDS: ISOSORBIDE MONONITRATE ER 30 MG TAB.ER.24H PO SCH (09:47)
[2017-02-04] MEDS: POTASSIUM CHLORIDE ER 10 MEQ TAB.ER.PRT PO SCH (09:47)
[2017-02-04] MEDS: PANTOPRAZOLE 40 MG TABLET PO SCH (09:48)
[2017-02-04] MEDS: ATORVASTATIN 20 MG TAB PO SCH (09:48)
[2017-02-04] MEDS: LISINOPRIL 5 MG TAB PO SCH (09:48)
[2017-02-04] MEDS: DONEPEZIL 5 MG TAB PO SCH (09:48)
[2017-02-04] MEDS: ASPIRIN 81 MG CHEW PO SCH (09:48)
[2017-02-04] MEDS: APIXABAN 2.5 MG TABLET PO SCH ×2 (09:48→21:37)
[2017-02-04] MEDS: FOLIC ACID 1 MG TAB PO SCH (09:48)
[2017-02-04] MEDS: DIVALPROEX 250 MG TABLET.DR PO SCH (09:48)
[2017-02-04] MEDS: AMIODARONE 200 MG TAB PO SCH (11:02)
[2017-02-04] MEDS: CARVEDILOL 12.5 MG TAB PO SCH (11:03)
[2017-02-04] MEDS: hydrALAZINE HCL 50 MG TAB PO SCH ×4 (11:03→21:37)
[2017-02-04] MEDS: FUROSEMIDE 20 MG TAB PO SCH (11:03)
[2017-02-04] MEDS ORDERED: traZODone HCL 50 MG TAB PO SCH (21:00)
[2017-02-04] MEDS: DIVALPROEX 500 MG TABLET.DR PO SCH (21:37)
[2017-02-05] MEDS: CARVEDILOL 12.5 MG TAB PO SCH ×2 (08:57→19:15)
[2017-02-05] MEDS: PANTOPRAZOLE 40 MG TABLET PO SCH (08:57)
[2017-02-05] MEDS: FOLIC ACID 1 MG TAB PO SCH (08:58)
[2017-02-05] MEDS: DIVALPROEX 250 MG TABLET.DR PO SCH (08:58)
[2017-02-05] MEDS: FUROSEMIDE 20 MG TAB PO SCH (08:58)
[2017-02-05] MEDS: hydrALAZINE HCL 50 MG TAB PO SCH ×3 (08:58→21:13)
[2017-02-05] MEDS: POTASSIUM CHLORIDE ER 10 MEQ TAB.ER.PRT PO SCH (08:58)
[2017-02-05] MEDS: ATORVASTATIN 20 MG TAB PO SCH (08:58)
[2017-02-05] MEDS: LISINOPRIL 5 MG TAB PO SCH (08:58)
[2017-02-05] MEDS: APIXABAN 2.5 MG TABLET PO SCH ×2 (08:59→21:13)
[2017-02-05] MEDS: ISOSORBIDE MONONITRATE ER 30 MG TAB.ER.24H PO SCH (08:59)
[2017-02-05] MEDS: DONEPEZIL 5 MG TAB PO SCH (08:59)
[2017-02-05] MEDS: ASPIRIN 81 MG CHEW PO SCH (08:59)
[2017-02-05] MEDS: AMIODARONE 200 MG TAB PO SCH (08:59)
--- NOTE | 2017-02-05 12:19 | PN ---
DATE OF SERVICE: 02/04/2017 CHIEF COMPLAINT: The patient was admitted due to mood fluctuations, poor sleep that was very distressing to him. Some thoughts of self harm without impulse and having stopped his psychotropic medications. INTERVAL HISTORY: The patient has been doing fairly well. He has a diagnosis of bipolar disorder. He describes episodes a history of episodes of what sounds like hypomania where he will get over energized. He may talk fast and have rapid speech. He may have impulsive behaviors. He says generally these episodes do not intensify to the point where he has required psychiatric hospitalization. He says typically these episodes may last about two weeks and then gradually resolve. He does acknowledge that he has more serious problems with episodes of depression. He says that currently he does not feel that he has had too significant an issue with this. He acknowledges that he has been off his Depakote for six months. It was not exactly clear what the motivation was for being off his medications. He since has been restarted on Depakote. He says that since coming into the hospital and getting back on his Depakote 750 mg day that he feels much better. He does note that the last time he saw the psychiatrist through the [place], his dose was increased to 1000 mg. He is not sure what the reason for that was. He cannot give me an idea of what Depakote levels he may have had at various times and treatment. It is noted that he lives alone though has a niece who is his guardian. The niece makes some effort to monitor medications. Apparently she has stated to staff that upon discharge she will follow his medications much more closely. The patient has not had any issues with this general health. He tolerates his psychotropic medications. MENTAL STATUS: The patient gave good eye contact. Psychomotor activity was a little restless. Speech was clear. He answered questions with direct responses. He was spontaneous and interactive. His affect was in reasonable range. His mood was even. He did not appear to be significantly distress. ASSESSMENT: I will continue the current diagnosis and treatment plan. I will continue psychotropic medications the same including Depakote 250 mg in the morning, 500 mg in the evening. It is noted that he is prescribed Ativan prn. He said he received a dose of Ativan last evening which helped him sleep. He is prescribed Ambien though states that he was not taking that prior to his hospitalization. I will discontinue both the Ativan and Ambien and start the patient on Trazodone 75 mg at bedtime given that the patient is also on Aricept , it would be questionable to what benefit he would get from taking Benzodiazepine. He appears to be showing good improvement. He will coordinate with his niece as far as discharge planning issues. He will coordinate with outpatient resources for follow-up care. SARANYA
[2017-02-05] MEDS ORDERED: DIVALPROEX 250 MG TABLET.DR PO STA (14:17)
[2017-02-05] MEDS: traZODone HCL 50 MG TAB PO SCH (21:14)
[2017-02-05] MEDS: DIVALPROEX 500 MG TABLET.DR PO SCH (21:15)
[2017-02-05] MEDS: ALBUTEROL INHALER 60 PUFF/8 GM INHALER INHALATION PRN (21:16)
--- NOTE | 2017-02-06 08:53 | PN ---
DATE OF SERVICE: 02/05/2017 CHIEF COMPLAINT: The patient admitted due to mood fluctuations, poor sleep that was very distressing to him. He had some thoughts of self harm without impulse and had stopped taking his psychotropic medications. INTERVAL HISTORY: The patient has been doing fair. He had a quiet evening last night. He said he did not sleep well last night and only slept maybe three hours at best. He says that I one of his main concerns that was quite distressing to him before he came into the hospital. He is hopeful that would be the primary issue to focus on. He has been cooperative. He has been attending groups. He interacts with others. He has not had change in his general health. He tolerates psychotropic medications. MENTAL STATUS: The patient was in the day area. He gave fair eye contact. Psychomotor activity was slowed. Speech was monotone. He answered questions with brief responses. His thoughts were clear. His affect was blunted. His mood was reserved. He seemed somewhat distressed. ASSESSMENT: I will continue the current diagnosis and treatment plan. I will increase Depakote to 500 mg twice a day. In addition, I will increase Trazodone to 150 mg a day. I will make contact with his niece who is his guardian and also his support person in the community. I discussed with the patient that we will look to adjust medications so that he is sleeping more soundly. Would look to discharge the patient in the next few days. Will coordinate with outpatient resources for follow-up care. SARANYA
[2017-02-06] MEDS: PANTOPRAZOLE 40 MG TABLET PO SCH (09:14)
[2017-02-06] MEDS: APIXABAN 2.5 MG TABLET PO SCH ×2 (09:14→21:50)
[2017-02-06] MEDS: DIVALPROEX 500 MG TABLET.DR PO SCH (09:14)
[2017-02-06] MEDS: FOLIC ACID 1 MG TAB PO SCH (09:14)
[2017-02-06] MEDS: ASPIRIN 81 MG CHEW PO SCH (09:15)
[2017-02-06] MEDS: ATORVASTATIN 20 MG TAB PO SCH (09:15)
[2017-02-06] MEDS: POTASSIUM CHLORIDE ER 10 MEQ TAB.ER.PRT PO SCH (09:15)
[2017-02-06] MEDS: DONEPEZIL 5 MG TAB PO SCH (09:15)
[2017-02-06] MEDS: LISINOPRIL 5 MG TAB PO SCH (09:15)
[2017-02-06] MEDS: FUROSEMIDE 20 MG TAB PO SCH (09:18)
[2017-02-06] MEDS: CARVEDILOL 12.5 MG TAB PO SCH (09:18)
[2017-02-06] MEDS: AMIODARONE 200 MG TAB PO SCH ×2 (09:18→13:04)
[2017-02-06] MEDS: ISOSORBIDE MONONITRATE ER 30 MG TAB.ER.24H PO SCH (09:19)
[2017-02-06] MEDS: hydrALAZINE HCL 50 MG TAB PO SCH (09:19)
[2017-02-06] MEDS: ALBUTEROL INHALER 60 PUFF/8 GM INHALER INHALATION PRN ×3 (10:04→21:30)
[2017-02-06 10:21] LABS: Potassium 3.9 mmol/L (3.5-5.1)
--- NOTE | 2017-02-06 16:26 | P.PN ---
Subjective Principal diagnosis: Dizziness Patient is a 76-year-old male with past medical history of cardiomyopathy with ejection fraction 17% and ICD, hypertension, dyslipidemia, atrial fibrillation, and coronary artery disease. He initially presented with racing thoughts and insomnia lasting several months. This occurred after he stopped his Depakote. He has been admitted to the psychiatric unit for further care. Initially on presentation he had complained of abdominal pain, he had a negative x-ray, he was started on a trial of the PPI. He has now begun having dizziness. Noted to have low blood pressures. Patient seen and examined at bedside. He was sleeping but easily arousable. He complains of dizziness when up and moving. He states his blood pressure is on the low side. He denies any chest pain, shortness of breath, lower extremity edema, and syncope. He states that he still did not sleep despite the Desyrel last night. He also complains of an upset stomach with all of his medications. Objective - Vital Signs Vital signs: Vital Signs Temp 98.3 F 02/05/17 06:44 Pulse 48 L 02/06/17 15:18 Resp 16 02/06/17 15:18 BP 170/73 02/06/17 15:18 Pulse Ox 97 02/04/17 11:00 - Exam General: non toxic, no distress, appears at stated age Derm: no rashes, no lesions Head: atraumatic, normocephalic, symmetric Eyes: EOMI, no lid lag, anicteric sclera ENT: no post nasal drip, no thrush Mouth: no lip lesion, mucus membranes moist Cardiovascular: S1S2 reg, no murmur, positive posterior tibial pulse left Lungs: CTA bilateral, no rhonchi, no rales , no accessory muscle use Abdominal: soft, nontender to palpation, no guarding, no appreciable organomegaly Ext: no gross muscle atrophy, no edema, no contractures Neuro: CN II-XI grossly intact, no focal neuro deficits Psych: Alert, oriented, flat affect - Labs CBC & Chem 7: 02/01/17 17:35 02/06/17 09:07 Labs: Abnormal Lab Results - Last 24 Hours (Table) 02/06/17 Range/Units 09:07 BUN 26 H (9-20) mg/dL Creatinine 1.50 H (0.66-1.25) mg/dL Glucose 106 H (74-99) mg/dL Assessment and Plan (1) Abdominal pain Narrative/Plan: Continue PPI, like due to GERD Status: Resolved (2) Ischemic cardiomyopathy Narrative/Plan: Chronic sytolic cardiomyopathy, EF 17%- follows with Dr. Parnell and at the [facility], continue with coreg, lipitor, , lisinopril in place of enalapril. ASA and imdur. Hold Lasix and potassium. Monitor for signs of increasing edema. Status: Chronic (3) HTN (hypertension) Narrative/Plan: Now with hypotension, will stop Lasix/potassium. Have decreased Coreg and hydralazine doses. Parameters have been added to all blood pressure medication. Status: Chronic (4) Chronic kidney disease (CKD) stage G3a/A1, moderately decreased glomerular filtration rate (GFR) between 45-59 mL/min/1.73 square meter and albuminuria creatinine ratio less than 30 mg/g Narrative/Plan: Baseline Cr is 1.45-2 and appears at baseline, off lasix, ACEI, Check BMP on Status: Chronic (5) Bipolar disease, manic Narrative/Plan: as per psych management Status: Acute (6) Chronic a-fib Narrative/Plan: rate controlled, on amio/coreg/eliquis Status: Acute Plan: Chronic: Dyslipidemia CAD COPD- will ordered prn albuterol RAMPART Seizure disorder ? Resolved: Insomnia Ruled out: HUBER We'll plan on basic metabolic profile and to re-see the patient on 02/08. With this patients complex medical conditions please do not hesitate to call us with change in clinical status. Will plan to follow intermittently. Thank you for allowing us to participate in the care of your patient.
[2017-02-06] MEDS: hydrALAZINE HCL 25 MG TAB PO SCH ×2 (16:35→22:07)
[2017-02-06] MEDS: CARVEDILOL 6.25 MG TAB PO SCH (18:49)
[2017-02-06] MEDS ORDERED: DIVALPROEX ER 500 MG TAB.ER.24H PO ONE (21:00)
[2017-02-06] MEDS: traZODone HCL 50 MG TAB PO SCH (21:47)
[2017-02-07] MEDS ORDERED: DIVALPROEX ER 500 MG TAB.ER.24H PO SCH ×2 (09:00→21:00)
[2017-02-07] MEDS: CARVEDILOL 6.25 MG TAB PO SCH ×2 (09:14→18:10)
[2017-02-07] MEDS: ASPIRIN 81 MG CHEW PO SCH (09:17)
[2017-02-07] MEDS: ALBUTEROL INHALER 60 PUFF/8 GM INHALER INHALATION PRN ×3 (09:17→20:56)
[2017-02-07] MEDS: hydrALAZINE HCL 25 MG TAB PO SCH ×3 (09:18→20:09)
[2017-02-07] MEDS: PANTOPRAZOLE 40 MG TABLET PO SCH (09:18)
[2017-02-07] MEDS: AMIODARONE 200 MG TAB PO SCH (09:18)
[2017-02-07] MEDS: APIXABAN 2.5 MG TABLET PO SCH ×2 (09:19→20:09)
[2017-02-07] MEDS: ATORVASTATIN 20 MG TAB PO SCH (09:20)
[2017-02-07] MEDS: ISOSORBIDE MONONITRATE ER 30 MG TAB.ER.24H PO SCH (09:20)
[2017-02-07] MEDS: LISINOPRIL 5 MG TAB PO SCH (09:20)
[2017-02-07] MEDS: FOLIC ACID 1 MG TAB PO SCH (09:22)
--- NOTE | 2017-02-07 11:02 | PN ---
DATE OF SERVICE: 02/06/2017 CHIEF COMPLAINT: Patient was admitted due to mood fluctuations, poor sleep and was very distressing to him. He had some thoughts of self harm without impulse and he had stopped taking his psychotropic medications. INTERVAL HISTORY: The patient has been doing fairly well overall. One main complaint that he has had was poor sleep. He did sleep somewhat better last night. Both he and staff reported that he has probably slept 4 hours. He has been napping during the day at least two hours. It is noted that this morning he had some dizziness. He was seen by Dr. Lyman. He ordered a metabolic profile and plan to re-evaluate the patient February 08. From the psychiatric standpoint, the patient seems to be doing fairly well. His mood has been even. I discussed his situation with his niece, Ana, who is his guardian and helps support and monitor his medications. She notes that there are times where he has just stopped taking medications for no clear reason and that along with this he can be stubborn about his medications. She has been setting up some plans where she can follow his medications more directly including managing them on a regular basis. She notes that there had been concerns that he may have some signs of dementia and had an abnormal MRI; however, she feels he functions well at home. She has not noted any change in his function with the start of Aricept. Patient tolerates his psychotropic medications. MENTAL STATUS: The patient was in his room lying down. He gave good eye contact. Psychomotor activity was slow. Speech was monotone. He answered questions with direct responses. His thoughts were clear. His affect was a little restricted. His mood was quiet. He did not appear to be distressed. ASSESSMENT: I will continue the current diagnosis and treatment plan. I will continue psychotropic medications the same. Patient noted that previously he had taken Depakote 150 mg over a long stretch of time though in a somewhat recent contact with the [facility] they had increased his dose to 1000 mg a day. His Depakote level yesterday was 34, which would reflect his just having gotten restarted on Depakote. At this point the plan will be to continue his medications the same, though I will discontinue Aricept. I have discussed this with his niece as far as monitoring for any potential change in cognitive or other functional issues. We would aim to discharge the patient Saturday. Get a Depakote level Saturday morning. Will coordinate with outpatient resources for follow up care. SARANYA
--- NOTE | 2017-02-07 16:59 | PN ---
DATE OF SERVICE: 02/07/2017 CHIEF COMPLAINT: The patient was admitted due to mood fluctuations, poor sleep that was very distressing to him. He had some thoughts of self-harm without impulse and had stopped taking his psychotropic medications. INTERVAL HISTORY: The patient has been doing fair. He was somewhat vague about how much he slept last night. Staff documented that he slept 6-1/2 hours last night. He was more skeptical about those numbers. He did nap at least 2 hours in the day yesterday. He said his mood is a little down today, mainly because he had some problems with weakness. He had difficulty getting out of bed and steadying himself. He had some dizziness yesterday. Today he mostly identifies weakness. He says he is very focused on going home tomorrow. He will be able to get an appointment with [facility] in [place] and believes that he is likely to be able to get in within 2 weeks. His niece will make appointments for him. He sees several physicians at the [facility] and also has a local doctor in [place] for general needs. He feels that he is tolerating his medications fairly well. He has not had other general health complaints. MENTAL STATUS: Patient gave fair eye contact. Psychomotor activity was a little slow. Speech was monotone. He answered questions with brief responses. His thoughts were clear. His affect was a little blunted, his mood quiet. He did not appear to be significantly distressed. ASSESSMENT: I will continue the current diagnosis and treatment plan. We will continue him on Depakote 1000 mg, which he will take all at bedtime. I will reduce his Desyrel from 150 mg down to 100 mg. He seems to be sleeping adequately. It is not clear whether the higher dose of Desyrel may be contributing to some weakness that he experiences. We will plan to discharge him tomorrow. We will make contact with his niece to get follow-up appointments at the [facility]. SARANYA
[2017-02-07] MEDS ORDERED: traZODone HCL 100 MG TAB PO SCH (21:00)
[2017-02-08 06:36] VITALS: TEMP 99.2
[2017-02-08] MEDS: LISINOPRIL 5 MG TAB PO SCH (09:30)
[2017-02-08] MEDS: PANTOPRAZOLE 40 MG TABLET PO SCH (09:30)
[2017-02-08] MEDS: CARVEDILOL 6.25 MG TAB PO SCH (09:31)
[2017-02-08] MEDS: ASPIRIN 81 MG CHEW PO SCH (09:31)
[2017-02-08] MEDS: hydrALAZINE HCL 25 MG TAB PO SCH (09:31)
[2017-02-08] MEDS: APIXABAN 2.5 MG TABLET PO SCH (09:31)
[2017-02-08] MEDS: ATORVASTATIN 20 MG TAB PO SCH (09:31)
[2017-02-08] MEDS: AMIODARONE 200 MG TAB PO SCH (09:31)
[2017-02-08] MEDS: ISOSORBIDE MONONITRATE ER 30 MG TAB.ER.24H PO SCH (09:32)
[2017-02-08] MEDS: FOLIC ACID 1 MG TAB PO SCH (09:32)
[2017-02-08 09:40] VITALS: BP 134/61; PULSE 52; RESP 18
[2017-02-08 09:45] LABS: Potassium 4.5 mmol/L (3.5-5.1)
--- NOTE | 2017-02-08 10:50 | DS ---
DATE OF ADMISSION: 02/01/2017 DATE OF DISCHARGE: 02/08/2017 ADMISSION AND DISCHARGE DIAGNOSES: 1. Bipolar affective disorder, depressed phase. 2. Insomnia disorder. 3. Dehydration. 4. Abdominal pain. 5. Renal failure. 6. Hypertension. 7. Coronary artery disease with automatic cardioverter. 8. Hyperlipidemia. HISTORY OF PRESENT ILLNESS: The patient is a 76 -year-old male. He was admitted to the psychiatric unit due to mood fluctuations and poor sleep that was very distressing to him. He had some thoughts of self arm without impulse and had stopped taking his psychotropic medications. He has a long history of mood disorder. He said that he had not been sleeping for many months. He had been on Depakote 750 mg per day. Apparently his dose had been increased up to 1000 mg a day through his [facility] psychiatrist. Over the last three months, he had stopped taking his medication. He was somewhat unclear as to the reason he stopped. The patient lives by himself. He has a right above the knee amputation. He manages with a wheelchair and prosthesis. He is able to drive a car without apparent difficulty. He has a niece who is his guardian and who watches over his medications. He suggested that after 17 years in the [employer] he may have been discharged due to development of bipolar symptoms though he was vague about details. He has a local family physician and then is seen through the [facility] for psychiatric as well as a number of other speciality follow- ups. He was admitted for further evaluation. Past medical history and physical examination as per Dr. Appiah. MENTAL STATUS EXAM: The patient was cooperative. Speech was fluent, not rapid or pressured. Thought process organized. Mood described as not bad . There were no thoughts of harm to self or others. No evidence of psychosis or agitation. No indications of hallucinations or delusional thoughts. Cognition was grossly intact. DIAGNOSTIC STUDIES: CBC was unremarkable. Hemoglobin 14.0, MCV was 101.2 which was slightly elevated. Comprehensive metabolic profile was essentially unremarkable save for elevated creatinine of 1.6. Glucose 132. His BUN was slightly elevated 24. The rest of the comprehensive metabolic profile was within normal limits. TSH 2.56. Urinalysis was positive for WBCs. Depakote level on 02/08 on the day of discharge was 72.9, on 1000 mg a day. HOSPITAL COURSE: The patient was admitted for comprehensive medical, psychiatric and psychosocial evaluation. We made efforts to engage the patient in individual group and therapeutic activities. The patient was restarted on Depakote 500 mg twice a day. Towards the end of the hospital stay that was changed to 1000 mg at bedtime which would help with compliance. He was also started on Trazodone due to poor sleep. He felt that he did not get much response from Trazodone 75 mg. The dose was increased to 150 mg. He did seem to sleep better at night, however, he had complaints of weakness in the morning. The last two days of his hospital stay he had prominent complaint of weakness and said that he felt worse leaving the hospital then he did when he came in. He was seen in consultation with Dr. Vu for his complaint of dizziness, tiredness and some GI complaints. His dizziness and tiredness seemed to be mostly prominent in the morning when he woke up. He was felt to have GERD as likely issue relating to his GI complaints. For the most part, those complaints were fairly resolved. Laboratory work was ordered which was unremarkable. The patient was cooperative throughout the hospitalization. He seemed to sleep better towards the end of his hospital stay. He attended groups. He interacted with others. He generally had a fairly good mood. He did not show signs of hypomania or manic symptoms. He did not show prominent depressive symptoms as well. He was very focused on the idea of being discharged and felt that [facility] who has worked with him over time. He seemed to be fairly stable by the time of discharge. CONDITION ON DISCHARGE: The patient was stable. His mood was in the normal range. There was no indication of hypomanic, manic or depressive symptoms. He had a reasonable outlook. He tolerated his medications well. RECOMMENDATIONS AND FOLLOW-UP: The patient will be discharged on Depakote 1000 mg at bedtime and Trazodone 100 mg at bedtime prn as his only psychotropic medications. In addition, he will continue Vasotec 2.5 mg a day, Pro-Air 81 mg , aspirin, Coreg 12.5 mg twice a day, Lasix 20 mg a day, which he states he uses prn, Eliquis 2.5 mg twice a day, Cordarone 200 mg twice a day, Imdur 30 mg a day, Klor-Con 10 meq a day, Lipitor 20 mg a day, Prilosec 20 mg a day, Folic acid 1 mg a day, Aricept 10 mg a day. He has a follow-up appointment on 02/11 at 11 a.m. at the [facility]. He was referred back to his primary care physician Dr. Clark for follow-up. I had discussed with the patient the option of cutting back his Depakote to 750 mg a day given his complaint of weakness though he stated that his psychiatrist at the [facility] is likely to want to continue 1000 mg a day. I advised the patient in regards to his Trazodone that he could use that as needed. I raised the question with the patient that I could not say whether the Trazodone which was a new medication for him was causing some of the weakness that he complained about. He will discuss this with his psychiatrist at the [facility]. SARANYA
== END 2017-02-08 10:45 | disposition home or self-care (01) | DRG 885 ==
LOC: EEVIPCON 16:12 → EC 16:12 → 3MHU 22:35 → EEVIPCON 22:35 → 3MHU 02-05 17:59
PROVIDERS: ADMIT Psychiatry & Neurology Psychiatry; ATTEND Psychiatry & Neurology Psychiatry
DX: F31.9 Bipolar disorder, unspecified (principal); I13.0 Hypertensive heart and chronic kidney disease with heart failure and stage 1 through stage 4 chronic kidney disease, or unspecified chronic kidney disease; G20 Parkinson's disease; E86.0 Dehydration; I48.2 Chronic atrial fibrillation; I50.9 Heart failure, unspecified; J44.9 Chronic obstructive pulmonary disease, unspecified; R45.851 Suicidal ideations; E78.5 Hyperlipidemia, unspecified; F41.9 Anxiety disorder, unspecified; F17.200 Nicotine dependence, unspecified, uncomplicated; G47.00 Insomnia, unspecified; I25.10 Atherosclerotic heart disease of native coronary artery without angina pectoris; I25.5 Ischemic cardiomyopathy; I73.9 Peripheral vascular disease, unspecified; K21.9 Gastro-esophageal reflux disease without esophagitis; N18.9 Chronic kidney disease, unspecified; Z79.01 Long term (current) use of anticoagulants; Z79.899 Other long term (current) drug therapy; Z80.52 Family history of malignant neoplasm of bladder; I25.2 Old myocardial infarction; Z89.611 Acquired absence of right leg above knee; Z82.0 Family history of epilepsy and other diseases of the nervous system; Z82.49 Family history of ischemic heart disease and other diseases of the circulatory system; Z85.46 Personal history of malignant neoplasm of prostate; Z92.21 Personal history of antineoplastic chemotherapy; Z92.3 Personal history of irradiation
CPT/HCPCS: 36415; 71020; 74020; 80048; 80053; 80164; 80306; 81003; 82075; 82150; 83690; 84443; 85025; 85610; 85730; 94640; 96360; 96361; 99285

== ENCOUNTER 2017-12-13 10:41 | Emergency (ER) | payer MEDICARE, OTHER ==
[2017-12-13 10:56] VITALS: RESP 18
[2017-12-13] MEDS ORDERED: SODIUM CHLORIDE 0.9% 1,000 ML IV STA (11:29)
--- NOTE | 2017-12-13 12:09 | XR ---
EXAMINATION TYPE: XR KUB DATE OF EXAM: 12/13/2017 12:03 PM CLINICAL HISTORY: Abdominal pain with diarrhea and extensive urination. TECHNIQUE: Two Upright KUB images of the abdomen are obtained. COMPARISON: CT abdomen and pelvis August 31, 2015. FINDINGS: Scattered gas is seen in non-distended small bowel loops. Gas and fecal material is seen in non-distended colon. Numerous clips overlie the lateral aspect the bilateral pelvis from prior prost atectomy are redemonstrated. There is vascular stent graft in the bilateral common iliac arteries red emonstrated. There is cardiomegaly with single lead pacemaker/defibrillator redemonstrated. No pneumo peritoneum is identified. Moderate degenerative change or joint space loss in both hips is redemonstr ated. IMPRESSION: Overall nonobstructive bowel gas pattern. No significant change from recent CT.
[2017-12-13 12:16] LABS: Basophils % (A) 0 %; Eosinophils # (A) 0.1 k/uL (0-0.7); Eosinophils % (A) 1 %; HCT 40.1 % (39.0-53.0); HGB 13.1 gm/dL (13.0-17.5); Lymphocytes # (A) 0.9 k/uL (1.0-4.8); Lymphocytes % (A) 11 %; MCH 32.6 pg (25.0-35.0); MCHC 32.7 g/dL (31.0-37.0); MCV 99.8 fL (80.0-100.0); Mean Platelet Volume 7.4; Monocytes # (A) 0.7 k/uL (0-1.0); Monocytes % (A) 10 %; Neutrophils # (A) 5.9 k/uL (1.3-7.7); Neutrophils % (A) 76 %; Platelet Count 139 k/uL (150-450); RBC 4.02 m/uL (4.30-5.90); RDW 13.5 % (11.5-15.5); WBC 7.7 k/uL (3.8-10.6)
--- NOTE | 2017-12-13 12:18 | ED ---
General Adult HPI - General Chief complaint: Abdominal Pain Stated complaint: Abd/Back Pain Time Seen by Provider: 12/13/17 10:58 Source: patient, RN notes reviewed, old records reviewed Mode of arrival: ambulatory Limitations: no limitations - History of Present Illness Initial comments: This is a 77-year-old male the ER. Patient does say for evaluation of bowel pain. Severe abdominal pain is been going on for a year worse over 6 months, episodic pain. Also has diarrhea in the morning especially after drinking coffee. Patient denies any fevers, has known hernia with hernia repair states he does have mild pain in that area. No recent travel she no sick contacts. Patient denies any diarrhea. He does state that he has a history of C. diff but is not having copious diarrhea currently - Related Data Home Medications Medication Instructions Recorded Confirmed Atorvastatin [Lipitor] 20 mg PO HS 08/22/15 12/13/17 Isosorbide Mononitrate ER [Imdur] 30 mg PO DAILY 08/31/15 12/13/17 Potassium Chloride [Klor-Con 10] 10 meq PO DAILY 08/31/15 12/13/17 Donepezil [Aricept] 5 mg PO HS 06/19/16 12/13/17 Amiodarone [Cordarone] 200 mg PO DAILY 10/08/16 12/13/17 Aspirin EC [Ecotrin Low Dose] 81 mg PO DAILY 02/01/17 12/13/17 Carvedilol [Coreg] 12.5 mg PO BID 02/01/17 12/13/17 Furosemide [Lasix] 20 mg PO DAILY 02/01/17 12/13/17 Albuterol Sulfate [Proair Hfa] 1 - 2 puff INHALATION RT-Q6H PRN 02/02/17 Levothyroxine Sodium 25 mcg PO DAILY 12/13/17 12/13/17 Previous Rx's Medication Instructions Recorded Folic Acid 1 mg PO DAILY #30 01/27/14 Omeprazole [PriLOSEC] 20 mg PO AC-BRKFST #30 01/27/14 Divalproex ER [Depakote ER] 1,000 mg PO HS tab 02/08/17 hydrALAZINE HCL [Apresoline] 25 mg PO TID tab 02/08/17 Dicyclomine [Bentyl] 10 mg PO TID #90 capsule 12/13/17 Metoclopramide HCl [Reglan] 5 mg PO BID #60 tablet 12/13/17 Naproxen [Naprosyn] 250 mg PO BID #30 tab 12/13/17 Allergies Allergy/AdvReac Type Severity Reaction Status Date / Time milk thistle (Silybum Allergy Severe Anaphylaxis Verified 12/13/17 11:37 marianum) Review of Systems ROS Statement: Those systems with pertinent positive or pertinent negative responses have been documented in the HPI. ROS Other: All systems not noted in ROS Statement are negative. Past Medical History Past Medical History: Atrial Fibrillation, Coronary Artery Disease (CAD), Cancer , Chest Pain / Angina, Heart Failure, COPD, Dementia, Hearing Disorder / Deafness, Hyperlipidemia, Hypertension, Myocardial Infarction ([place]), Prostate Disorder, Seizure Disorder, Vascular Disorder Additional Past Medical History / Comment(s): Prostate cancer status post chemo and radiation and posterior resection 1968, newly dx. Parkinsons. Last Myocardial Infarction Date:: unknown History of Any Multi-Drug Resistant Organisms: C-DIFF Date of last positivie culture/infection: August, MDRO Source:: Stool Past Surgical History: AICD, Heart Catheterization With Stent, Prostate Surgery Additional Past Surgical History / Comment(s): Patient states he has had 8 or 9 stents placed in his heart, prostate resection for cancer, right [id number] amputation for peripheral vascular disease May-2011, Defibrilator placed on 2015 Past Anesthesia/Blood Transfusion Reactions: No Reported Reaction Date of Last Stent Placement:: unknown Type of Cardiac Device: AICD Device Placement Date:: 08/22/15 Past Psychological History: Bipolar, Depression Smoking Status: Former smoker - Past Family History Father Family Medical History: Myocardial Infarction ([place]) Additional Family Medical History / Comment(s): Father at age 56 from a myocardial infarction. Mother Family Medical History: Cancer Additional Family Medical History / Comment(s): Mother at age 74 from bladder cancer with metastases to the bone. Brother(s) Family Medical History: Myocardial Infarction ([place]) Additional Family Medical History / Comment(s): Patient had 1 brother that at age 60 from a myocardial infarction Sister(s) Additional Family Medical History / Comment(s): PARKINSONS General Exam Limitations: no limitations General appearance: alert, in no apparent distress Head exam: Present: atraumatic, normocephalic, normal inspection Eye exam: Present: normal appearance, PERRL, EOMI. Absent: scleral icterus, conjunctival injection, periorbital swelling ENT exam: Present: normal exam, mucous membranes moist Neck exam: Present: normal inspection. Absent: tenderness, meningismus, lymphadenopathy Respiratory exam: Present: normal lung sounds bilaterally. Absent: respiratory distress, wheezes, rales, rhonchi, stridor Cardiovascular Exam: Present: regular rate, normal rhythm, normal heart sounds. Absent: systolic murmur, diastolic murmur, rubs, gallop, clicks GI/Abdominal exam: Present: soft, normal bowel sounds. Absent: distended, tenderness, guarding, rebound, rigid Extremities exam: Present: normal inspection, full ROM, normal capillary refill. Absent: tenderness, pedal edema, joint swelling, calf tenderness Back exam: Present: normal inspection Neurological exam: Present: alert, oriented X3, CN II-XII intact Psychiatric exam: Present: normal affect, normal mood Skin exam: Present: warm, dry, intact, normal color. Absent: rash Course Vital Signs 12/13/17 10:52 Temperature 98.5 F Pulse Rate 63 Respiratory 18 Rate Blood Pressure 94/64 - Reevaluation(s) Reevaluation #1: 12/13/17 14:32 with current pain control. Patient can be discharged home Medical Decision Making - Medical Decision Making 77 male the ER for evaluation. Patient is today for 6 months to years abdominal pain. Patient does have known hernia. Hernia is not incarcerated, labwork is normal patient can be discharged home - Lab Data Result diagrams: 12/13/17 11:50 12/13/17 11:50 Lab Results 12/13/17 12/13/17 12/13/17 Range/Units 11:50 11:50 11:50 WBC 7.7 (3.8-10.6) k/uL RBC 4.02 L (4.30-5.90) m/uL Hgb 13.1 (13.0-17.5) gm/dL Hct 40.1 (39.0-53.0) % MCV 99.8 (80.0-100.0) fL MCH 32.6 (25.0-35.0) pg MCHC 32.7 (31.0-37.0) g/dL RDW 13.5 (11.5-15.5) % Plt Count 139 L (150-450) k/uL Neutrophils % 76 % Lymphocytes % 11 % Monocytes % 10 % Eosinophils % 1 % Basophils % 0 % Neutrophils # 5.9 (1.3-7.7) k/uL Lymphocytes # 0.9 L (1.0-4.8) k/uL Monocytes # 0.7 (0-1.0) k/uL Eosinophils # 0.1 (0-0.7) k/uL Basophils # 0.0 (0-0.2) k/uL PT (9.0-12.0) sec INR (<1.2) APTT (22.0-30.0) sec Sodium 141 (137-145) mmol/L Potassium 4.0 (3.5-5.1) mmol/L Chloride 104 (98-107) mmol/L Carbon Dioxide 28 (22-30) mmol/L Anion Gap 9 mmol/L BUN 26 H (9-20) mg/dL Creatinine 1.60 H (0.66-1.25) mg/dL Est GFR (CKD-EPI)AfAm 48 (>60 ml/min/1.73 sqM) Est GFR (CKD-EPI)NonAf 41 (>60 ml/min/1.73 sqM) Glucose 107 H (74-99) mg/dL Plasma Lactic Acid Matthew (0.7-2.0) mmol/L Calcium 8.4 (8.4-10.2) mg/dL Total Bilirubin 0.7 (0.2-1.3) mg/dL AST 19 (17-59) U/L ALT 27 (21-72) U/L Alkaline Phosphatase 54 (38-126) U/L Total Creatine Kinase 21 L (55-170) U/L CK-MB (CK-2) 0.5 (0.0-2.4) ng/mL CK-MB (CK-2) Rel Index 2.4 Troponin I 0.063 H* (0.000-0.034) ng/mL Total Protein 5.7 L (6.3-8.2) g/dL Albumin 2.9 L (3.5-5.0) g/dL Amylase 39 (30-110) U/L Lipase 66 (23-300) U/L 12/13/17 12/13/17 Range/Units 11:50 11:50 WBC (3.8-10.6) k/uL RBC (4.30-5.90) m/uL Hgb (13.0-17.5) gm/dL Hct (39.0-53.0) % MCV (80.0-100.0) fL MCH (25.0-35.0) pg MCHC (31.0-37.0) g/dL RDW (11.5-15.5) % Plt Count (150-450) k/uL Neutrophils % % Lymphocytes % % Monocytes % % Eosinophils % % Basophils % % Neutrophils # (1.3-7.7) k/uL Lymphocytes # (1.0-4.8) k/uL Monocytes # (0-1.0) k/uL Eosinophils # (0-0.7) k/uL Basophils # (0-0.2) k/uL PT 9.9 (9.0-12.0) sec INR 1.0 (<1.2) APTT 24.4 (22.0-30.0) sec Sodium (137-145) mmol/L Potassium (3.5-5.1) mmol/L Chloride (98-107) mmol/L Carbon Dioxide (22-30) mmol/L Anion Gap mmol/L BUN (9-20) mg/dL Creatinine (0.66-1.25) mg/dL Est GFR (CKD-EPI)AfAm (>60 ml/min/1.73 sqM) Est GFR (CKD-EPI)NonAf (>60 ml/min/1.73 sqM) Glucose (74-99) mg/dL Plasma Lactic Acid Matthew 1.2 (0.7-2.0) mmol/L Calcium (8.4-10.2) mg/dL Total Bilirubin (0.2-1.3) mg/dL AST (17-59) U/L ALT (21-72) U/L Alkaline Phosphatase (38-126) U/L Total Creatine Kinase (55-170) U/L CK-MB (CK-2) (0.0-2.4) ng/mL CK-MB (CK-2) Rel Index Troponin I (0.000-0.034) ng/mL Total Protein (6.3-8.2) g/dL Albumin (3.5-5.0) g/dL Amylase (30-110) U/L Lipase (23-300) U/L - Radiology Data Radiology results: report reviewed (CT abdomen and pelvis without contrast is negative), image reviewed Disposition Clinical Impression: Abdominal pain, Hernia Disposition: HOME SELF-CARE Condition: Good Instructions: Abdominal Pain (ED) Prescriptions: Dicyclomine [Bentyl] 10 mg PO TID #90 capsule Metoclopramide HCl [Reglan] 5 mg PO BID #60 tablet Naproxen [Naprosyn] 250 mg PO BID #30 tab Is patient prescribed a controlled substance at d/c from ED?: No Referrals: Mark Clark MD [Primary Care Provider] - 1-2 days
[2017-12-13 12:22] LABS: Albumin 2.9 g/dL (3.5-5.0); Calcium 8.4 mg/dL (8.4-10.2); Total Bilirubin 0.7 mg/dL (0.2-1.3); Total Protein 5.7 g/dL (6.3-8.2)
[2017-12-13 12:29] LABS: Partial Thromboplastin Time 24.4 sec (22.0-30.0); Prothrombin Time 9.9 sec (9.0-12.0)
[2017-12-13 12:46] LABS: Creatine Kinase MB 0.5 ng/mL (0.0-2.4)
[2017-12-13 12:49] LABS: Troponin I 0.063 ng/mL (0.000-0.034)
--- NOTE | 2017-12-13 13:40 | CT ---
EXAMINATION TYPE: CT abdomen pelvis wo con DATE OF EXAM: 12/13/2017 HISTORY: back pain, generalized abd pain CT DLP: 418.2 mGycm. Automated Exposure Control for Dose Reduction was Utilized. TECHNIQUE: CT scan of the abdomen and pelvis is performed without oral or IV contrast. IV contrast w as not given due to elevated renal function. COMPARISON: CT abdomen and pelvis August 31, 2015. FINDINGS: Within the limitations of a non-contrast study, the following observations are made. LUNG BASES: There is partial visualization of right-sided pacemaker/defibrillator. There is coronary artery stent in the RCA distribution suspected. Small hiatal hernia is redemonstrated. LIVER/GB: No significant abnormality is appreciated. PANCREAS: No significant abnormality is seen. SPLEEN: No significant abnormality is seen. ADRENALS: No significant abnormality is seen. KIDNEYS: Asymmetric atrophy to left kidney is again seen with diminished size and cortical thinning. BOWEL: Evaluation bowel is suboptimal secondary to lack of enteric contrast. Small hiatal hernia is p resent. There is prominent diverticulosis in the sigmoid colon. There is no convincing CT evidence fo r acute diverticulitis. GENITAL ORGANS: Prostate is surgically absent. Numerous clips phleboliths are present. LYMPH NODES: No greater than 1cm abdominal or pelvic lymph nodes are appreciated. OSSEOUS STRUCTURES: Moderate disc space narrowing and vacuum disc phenomenon L5-S1 level is redemonst rated. Prominent Schmorl node superior L4 level is again seen. OTHER: There is fairly moderate calcified plaque of the abdominal aorta with severe calcified plaque extending into common iliac arteries reveals. Metallic stent grafts are redemonstrated bilaterally. T here is now more prominent aneurysmal change to the infrarenal abdominal aorta measuring 3.4 x 3.4 cm axial image 42. There is small left inguinal hernia containing portion of diverticula in sigmoid colon axial images 6 8 through 72 on current study. No suspicious fat stranding or proximal dilatation is seen. IMPRESSION: 1. No significant acute finding is seen to account for patient's symptoms. 2. Increasing size 3.4 cm abdominal aortic aneurysm is noted. 3. Left inguinal hernia now contains portion of sigmoid colon without surrounding suspicious fluid or fat stranding or bowel obstruction.
[2017-12-13] MEDS ORDERED: diphenhydrAMINE 50 MG/ML 1 ML VIAL IVP STA (14:29)
[2017-12-13] MEDS ORDERED: DICYCLOMINE 20 MG TAB PO STA (14:29)
[2017-12-13] MEDS ORDERED: KETOROLAC 30 MG/ML 1 ML VIAL IVP STA (14:29)
[2017-12-13] MEDS ORDERED: ONDANSETRON 4 MG/2 ML VIAL IVP STA (14:29)
[2017-12-13] MEDS ORDERED: METOCLOPRAMIDE 5 MG/ML 2 ML VIAL IVP STA (14:29)
[2017-12-13 14:37] VITALS: BP 137/66; PULSE 52; TEMP 96.9
== END 2017-12-13 14:55 | disposition home or self-care (01) ==
LOC: EC 10:41
DX: K40.90 Unilateral inguinal hernia, without obstruction or gangrene, not specified as recurrent (principal); I48.91 Unspecified atrial fibrillation; I25.10 Atherosclerotic heart disease of native coronary artery without angina pectoris; I11.0 Hypertensive heart disease with heart failure; I50.9 Heart failure, unspecified; J44.9 Chronic obstructive pulmonary disease, unspecified; F03.90 Unspecified dementia, unspecified severity, without behavioral disturbance, psychotic disturbance, mood disturbance, and anxiety; E78.5 Hyperlipidemia, unspecified; I25.2 Old myocardial infarction; I73.9 Peripheral vascular disease, unspecified; Z85.46 Personal history of malignant neoplasm of prostate; Z92.21 Personal history of antineoplastic chemotherapy; Z95.810 Presence of automatic (implantable) cardiac defibrillator; Z95.5 Presence of coronary angioplasty implant and graft; Z87.891 Personal history of nicotine dependence; Z79.82 Long term (current) use of aspirin; Z79.899 Other long term (current) drug therapy; Z88.8 Allergy status to other drugs, medicaments and biological substances; Z98.890 Other specified postprocedural states
CPT/HCPCS: 36415; 80053; 82150; 82550; 82553; 83605; 83690; 84484; 85025; 85610; 85730; 74018; 74176; 99285; 96374; 96375 ×3; 96361 ×3; J1200; J2765; J2405; J1885

== ENCOUNTER 2018-03-10 09:13 | Inpatient (IN) | payer MEDICARE, OTHER ==
--- NOTE | 2018-03-10 09:36 | ED ---
General Adult HPI - General Chief complaint: Chest Pain Stated complaint: CHest Pain Time Seen by Provider: 03/10/18 09:21 Source: patient, EMS, RN notes reviewed, old records reviewed Mode of arrival: EMS Limitations: physical limitation - History of Present Illness Initial comments: This is a 70-year-old male the ER for evaluation. Patient does say for evaluation chest pain. Substernal chest and radiation. No recent travel history no known sick contacts. No recent fevers. No cough or congestion. Patient does have significant cardiac risk factors and significant history of heart disease. Patient states no modifying factors for pain with the pain is persistent - Related Data Home Medications Medication Instructions Recorded Confirmed Isosorbide Mononitrate ER [Imdur] 30 mg PO DAILY 08/31/15 03/10/18 Potassium Chloride [Klor-Con 10] 10 meq PO DAILY 08/31/15 03/10/18 Amiodarone [Cordarone] 200 mg PO BID 10/08/16 03/10/18 Furosemide [Lasix] 20 mg PO DAILY 02/01/17 03/10/18 Albuterol Nebulized [Ventolin 2.5 mg INHALATION Q4H PRN 03/10/18 03/10/18 Nebulized] Aspirin EC [Ecotrin] 325 mg PO DAILY 03/10/18 03/10/18 Carvedilol [Coreg] 6.25 mg PO BID 03/10/18 03/10/18 Dicyclomine [Bentyl] 10 mg PO QID PRN 03/10/18 03/10/18 Metoclopramide HCl [Reglan] 5 mg PO BID PRN 03/10/18 03/10/18 Naproxen [Naprosyn] 250 mg PO BID PRN 03/10/18 03/10/18 hydrALAZINE HCL [Apresoline] 50 mg PO TID 03/10/18 03/10/18 Previous Rx's Medication Instructions Recorded Omeprazole [PriLOSEC] 20 mg PO -EAGLEKFST #30 01/27/14 Allergies Allergy/AdvReac Type Severity Reaction Status Date / Time milk thistle (Silybum Allergy Severe Anaphylaxis Verified 03/10/18 10:06 marianum) Review of Systems ROS Statement: Those systems with pertinent positive or pertinent negative responses have been documented in the HPI. ROS Other: All systems not noted in ROS Statement are negative. Past Medical History Past Medical History: Atrial Fibrillation, Coronary Artery Disease (CAD), Cancer , Chest Pain / Angina, Heart Failure, COPD, Dementia, Hearing Disorder / Deafness, Hyperlipidemia, Hypertension, Myocardial Infarction ([place]), Prostate Disorder, Seizure Disorder, Vascular Disorder Additional Past Medical History / Comment(s): Prostate cancer status post chemo and radiation and posterior resection 1968, newly dx. Parkinsons. Last Myocardial Infarction Date:: unknown History of Any Multi-Drug Resistant Organisms: C-DIFF Date of last positivie culture/infection: August, MDRO Source:: Stool Past Surgical History: AICD, Heart Catheterization With Stent, Prostate Surgery Additional Past Surgical History / Comment(s): Patient states he has had 8 or 9 stents placed in his heart, prostate resection for cancer, right [id number] amputation for peripheral vascular disease May-2011, Defibrilator placed on 2015 Past Anesthesia/Blood Transfusion Reactions: No Reported Reaction Date of Last Stent Placement:: unknown Type of Cardiac Device: AICD Device Placement Date:: 08/22/15 Past Psychological History: Bipolar, Depression Smoking Status: Former smoker - Past Family History Father Family Medical History: Myocardial Infarction ([place]) Additional Family Medical History / Comment(s): Father at age 56 from a myocardial infarction. Mother Family Medical History: Cancer Additional Family Medical History / Comment(s): Mother at age 74 from bladder cancer with metastases to the bone. Brother(s) Family Medical History: Myocardial Infarction ([place]) Additional Family Medical History / Comment(s): Patient had 1 brother that at age 60 from a myocardial infarction Sister(s) Additional Family Medical History / Comment(s): PARKINSONS General Exam Limitations: physical limitation General appearance: alert, in no apparent distress Head exam: Present: atraumatic, normocephalic, normal inspection Eye exam: Present: normal appearance, PERRL, EOMI. Absent: scleral icterus, conjunctival injection, periorbital swelling ENT exam: Present: normal exam, mucous membranes moist Neck exam: Present: normal inspection. Absent: tenderness, meningismus, lymphadenopathy Respiratory exam: Present: normal lung sounds bilaterally. Absent: respiratory distress, wheezes, rales, rhonchi, stridor Cardiovascular Exam: Present: regular rate, normal rhythm, normal heart sounds. Absent: systolic murmur, diastolic murmur, rubs, gallop, clicks GI/Abdominal exam: Present: soft, normal bowel sounds. Absent: distended, tenderness, guarding, rebound, rigid Extremities exam: Present: normal inspection, full ROM, normal capillary refill. Absent: tenderness, pedal edema, joint swelling, calf tenderness Back exam: Present: normal inspection Neurological exam: Present: alert, oriented X3, CN II-XII intact Psychiatric exam: Present: normal affect, normal mood Skin exam: Present: warm, dry, intact, normal color. Absent: rash Course Vital Signs 03/10/18 03/10/18 03/10/18 09:27 10:28 11:05 Temperature 98.1 F Pulse Rate 60 59 L 58 L Respiratory 18 17 17 Rate Blood Pressure 176/86 160/79 152/81 O2 Sat by Pulse 100 100 100 Oximetry EKG Findings - EKG Comments: EKG Findings:: EKG shows normal sinus rhythm rate 60, KS 134, QRS 146, QTc 458 Medical Decision Making - Medical Decision Making 70 male the ER was significant cardiac history coming of chest pain today. Patient be admitted for cardiac observation - Lab Data Result diagrams: 03/13/18 06:04 03/13/18 06:04 Lab Results 03/10/18 03/10/18 03/10/18 Range/Units 09:15 09:15 09:15 WBC 6.5 (3.8-10.6) k/uL RBC 4.34 (4.30-5.90) m/uL Hgb 14.0 (13.0-17.5) gm/dL Hct 42.9 (39.0-53.0) % MCV 98.8 (80.0-100.0) fL MCH 32.3 (25.0-35.0) pg MCHC 32.7 (31.0-37.0) g/dL RDW 13.7 (11.5-15.5) % Plt Count 136 L (150-450) k/uL Neutrophils % 69 % Lymphocytes % 17 % Monocytes % 10 % Eosinophils % 2 % Basophils % 0 % Neutrophils # 4.5 (1.3-7.7) k/uL Lymphocytes # 1.1 (1.0-4.8) k/uL Monocytes # 0.6 (0-1.0) k/uL Eosinophils # 0.2 (0-0.7) k/uL Basophils # 0.0 (0-0.2) k/uL PT (9.0-12.0) sec INR (<1.2) APTT (22.0-30.0) sec D-Dimer (<0.60) mg/L FEU Sodium 143 (137-145) mmol/L Potassium 4.2 (3.5-5.1) mmol/L Chloride 107 (98-107) mmol/L Carbon Dioxide 30 (22-30) mmol/L Anion Gap 6 mmol/L BUN 21 H (9-20) mg/dL Creatinine 1.56 H (0.66-1.25) mg/dL Est GFR (CKD-EPI)AfAm 49 (>60 ml/min/1.73 sqM) Est GFR (CKD-EPI)NonAf 42 (>60 ml/min/1.73 sqM) Glucose 110 H (74-99) mg/dL Calcium 9.1 (8.4-10.2) mg/dL Magnesium 1.9 (1.6-2.3) mg/dL Total Bilirubin 0.5 (0.2-1.3) mg/dL AST 28 (17-59) U/L ALT 17 L (21-72) U/L Alkaline Phosphatase 54 (38-126) U/L Total Creatine Kinase 101 (55-170) U/L CK-MB (CK-2) 6.0 H (0.0-2.4) ng/mL CK-MB (CK-2) Rel Index 5.9 Troponin I 2.970 H* (0.000-0.034) ng/mL Total Protein 6.4 (6.3-8.2) g/dL Albumin 3.4 L (3.5-5.0) g/dL Triglycerides (<150) mg/dL Cholesterol (<200) mg/dL LDL Cholesterol, Calc (0-99) mg/dL HDL Cholesterol (40-60) mg/dL Lipase 51 (23-300) U/L 03/10/18 03/10/18 Range/Units 09:15 09:15 WBC (3.8-10.6) k/uL RBC (4.30-5.90) m/uL Hgb (13.0-17.5) gm/dL Hct (39.0-53.0) % MCV (80.0-100.0) fL MCH (25.0-35.0) pg MCHC (31.0-37.0) g/dL RDW (11.5-15.5) % Plt Count (150-450) k/uL Neutrophils % % Lymphocytes % % Monocytes % % Eosinophils % % Basophils % % Neutrophils # (1.3-7.7) k/uL Lymphocytes # (1.0-4.8) k/uL Monocytes # (0-1.0) k/uL Eosinophils # (0-0.7) k/uL Basophils # (0-0.2) k/uL PT 10.4 (9.0-12.0) sec INR 1.1 (<1.2) APTT 24.7 (22.0-30.0) sec D-Dimer 8.63 H (<0.60) mg/L FEU Sodium (137-145) mmol/L Potassium (3.5-5.1) mmol/L Chloride (98-107) mmol/L Carbon Dioxide (22-30) mmol/L Anion Gap mmol/L BUN (9-20) mg/dL Creatinine (0.66-1.25) mg/dL Est GFR (CKD-EPI)AfAm (>60 ml/min/1.73 sqM) Est GFR (CKD-EPI)NonAf (>60 ml/min/1.73 sqM) Glucose (74-99) mg/dL Calcium (8.4-10.2) mg/dL Magnesium (1.6-2.3) mg/dL Total Bilirubin (0.2-1.3) mg/dL AST (17-59) U/L ALT (21-72) U/L Alkaline Phosphatase (38-126) U/L Total Creatine Kinase (55-170) U/L CK-MB (CK-2) (0.0-2.4) ng/mL CK-MB (CK-2) Rel Index Troponin I (0.000-0.034) ng/mL Total Protein (6.3-8.2) g/dL Albumin (3.5-5.0) g/dL Triglycerides 118 (<150) mg/dL Cholesterol 196 (<200) mg/dL LDL Cholesterol, Calc 142 H (0-99) mg/dL HDL Cholesterol 30 L (40-60) mg/dL Lipase (23-300) U/L - Radiology Data Radiology results: report reviewed (Chest x-rays negative for acute disease, CTA chest negative), image reviewed Critical Care Time Critical Care Time: Yes Total Critical Care Time: 31 Disposition Clinical Impression: Chest pain Disposition: ADMITTED IP TO THIS [facility] Condition: Undetermined Is patient prescribed a controlled substance at d/c from ED?: No
--- NOTE | 2018-03-10 09:50 | XR ---
EXAMINATION TYPE: XR chest 2V DATE OF EXAM: 03/10/2018 COMPARISON: Chest x-ray February 01, 2017 HISTORY: History of atrial fibrillation and COPD presents with chest pain. TECHNIQUE: Frontal and lateral views of the chest are obtained. FINDINGS: There is no focal air space opacity, pleural effusion, or pneumothorax seen. The cardiac silhouette size is stable and upper limits of normal with single lead pacemaker/AICD. There is ather osclerotic change in the aortic knob. The osseous structures are intact. IMPRESSION: No suspicious acute pulmonary process. No significant change from prior.
[2018-03-10 10:06] LABS: Albumin 3.4 g/dL (3.5-5.0); Calcium 9.1 mg/dL (8.4-10.2); Magnesium 1.9 mg/dL (1.6-2.3); Potassium 4.2 mmol/L (3.5-5.1); Total Bilirubin 0.5 mg/dL (0.2-1.3); Total Protein 6.4 g/dL (6.3-8.2)
[2018-03-10] MEDS ORDERED: HEPARIN SODIUM,PORCINE 5,000 UNIT/ML 1 ML VIAL IV PRN (10:13)
[2018-03-10] MEDS ORDERED: ASPIRIN 81 MG PO STA (10:13)
[2018-03-10] MEDS ORDERED: HEPARIN SODIUM,PORCINE 5,000 UNIT/ML 1 ML VIAL IV ONE (10:13)
[2018-03-10 10:18] LABS: Basophils % (A) 0 %; Eosinophils # (A) 0.2 k/uL (0-0.7); Eosinophils % (A) 2 %; HCT 42.9 % (39.0-53.0); Lymphocytes # (A) 1.1 k/uL (1.0-4.8); Lymphocytes % (A) 17 %; MCH 32.3 pg (25.0-35.0); MCHC 32.7 g/dL (31.0-37.0); MCV 98.8 fL (80.0-100.0); Monocytes # (A) 0.6 k/uL (0-1.0); Monocytes % (A) 10 %; Neutrophils # (A) 4.5 k/uL (1.3-7.7); Neutrophils % (A) 69 %; Platelet Count 136 k/uL (150-450); RBC 4.34 m/uL (4.30-5.90); RDW 13.7 % (11.5-15.5); WBC 6.5 k/uL (3.8-10.6)
[2018-03-10] MEDS: HEPARIN SOD,PORK IN 0.45% NACL 25,000 UNIT in 0.45% NACL 1 500ML.BAG IV SCH (10:24)
[2018-03-10 10:34] LABS: D-Dimer 8.63 mg/L FEU (<0.60); INR 1.1 (<1.2); Partial Thromboplastin Time 24.7 sec (22.0-30.0); Prothrombin Time 10.4 sec (9.0-12.0)
[2018-03-10 11:04] LABS: Troponin I 2.97 ng/mL (0.000-0.034)
--- NOTE | 2018-03-10 11:43 | CT ---
EXAMINATION TYPE: CT angio chest DATE OF EXAM: 03/10/2018 11:25 AM COMPARISON: HISTORY: chest pain CT DLP: 539 mGycm Automated exposure control for dose reduction was used. CONTRAST: CTA scan of the thorax is performed with IV Contrast, patient injected with 80mL mL of Isovue 370, pu lmonary embolism protocol. . FINDINGS: LUNGS: Subpleural nodularity and changes of COPD are noted. Area of consolidation the left lower lobe is seen. 5 mm nodule right lower lobe. No pleural effusion or pneumothorax. Calcified granuloma seen in the left lower lobe. MEDIASTINUM: The heart is enlarged and there are cardiac leads. Coronary artery calcification seen. A therosclerotic change aorta. Pulmonary arteries enhance normally. Small amount air is seen in the rig ht atrium which may be intragenic correlate clinically. OTHER: Cardiac device noted. Left kidney is atrophic. Spleen hepatic granuloma seen. There is ectasi a of the upper abdominal aorta measuring 3.2 cm compatible with aneurysmal dilation. Stable from prev ious exam. Small hiatal hernia noted. Changes of gynecomastia noted. Hypertrophic and degenerative ch anges of the spine. Atherosclerotic change of the visualized mesenteric vasculature. IMPRESSION: 1. No CT evidence of the pulmonary angles. 2. Stable mild aneurysmal dilation upper abdominal aorta measuring 3.1 cm. 3. Left lower lobe subsegmental atelectasis or infiltrate. 4. There is a small bubble of air within the right atrium which is nonspecific may be echogenic corre late clinically. 5. Multiple 5 mm less pulmonary nodules for which six-month follow-up exam is recommended to confirm stability. 6. Correlate for COPD. 7. Cardiomegaly and coronary artery atherosclerotic changes.
[2018-03-10] MEDS ORDERED: METOCLOPRAMIDE 5 MG TAB PO PRN (12:10)
[2018-03-10] MEDS ORDERED: DICYCLOMINE 10 MG CAP PO PRN (12:10)
[2018-03-10] MEDS ORDERED: ISOSORBIDE MONONITRATE ER 30 MG TAB.ER.24H PO SCH (12:15)
[2018-03-10] MEDS ORDERED: CARVEDILOL 6.25 MG TAB PO SCH (12:15)
[2018-03-10] MEDS ORDERED: FUROSEMIDE 20 MG TAB PO SCH (12:15)
[2018-03-10] MEDS: NITROGLYCERIN SL TABS 0.4 MG TAB SUBLINGUAL PRN ×3 (12:35→12:45)
[2018-03-10] MEDS: PANTOPRAZOLE 40 MG TABLET PO SCH (13:19)
[2018-03-10] MEDS: hydrALAZINE HCL 50 MG TAB PO SCH ×3 (13:19→22:26)
[2018-03-10] MEDS: AMIODARONE 200 MG TAB PO SCH ×2 (13:19→19:55)
[2018-03-10] MEDS: POTASSIUM CHLORIDE ER 10 MEQ TAB.ER.PRT PO SCH (13:19)
--- NOTE | 2018-03-10 13:43 | P.CRDCN ---
History of Present Illness History of present illness: This is Dr. 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 Known peripheral vascular disease Known coronary artery disease status post coronary stenting Right lower extremity amputee Peripheral artery stenting in the past PLAN: Continue IV heparin, atorvastatin 80 mg by mouth daily, Nitropaste, IV nitroglycerin if needed him a discussed with numbness, continue beta blockers, aspirin 81 mg by mouth daily Nil by mouth after midnight for possible procedure tomorrow 2-D echo and Doppler study HPI Patient presenting with midsternal chest discomfort since yesterday, abnormal troponins, left bundle branch block pattern on twelve-lead ECG and subtle ST segment changes in V1 No shortness of breath but he states it is difficult for him to take a deep breath in because it hurts, somewhat of a pleuritic component ROS: No fever chills or rigors, no cough, phlegm or expectoration, no nausea, vomiting or diarrhea, no hematuria, dysuria, no musculoskeletal complaints, no strokes or seizures, no skin lesions. EXAMINATION Blood pressure 122/78. His mercury pulse rate in the 70s, afebrile 97.8F, respirations normal Breath sounds are reduced bilaterally no rhonchi no crackles Heart sounds S1 and S2 are normal no murmurs no gallops no rub Abdomen soft No lower extremity edema Right lower extremity amputee REVIEW OF LABS, ECG Normal white count normal hemoglobin normal electrolytes BUN 21 creatinine 1.56 Troponin 2.97 Past Medical History Past Medical History: Atrial Fibrillation, Coronary Artery Disease (CAD), Cancer , Chest Pain / Angina, Heart Failure, COPD, Dementia, GI Bleed, Hearing Disorder / Deafness, Hyperlipidemia, Hypertension, Memory Impairment, Pneumonia , Prostate Disorder, Renal Disease, Seizure Disorder, Vascular Disorder Additional Past Medical History / Comment(s): Ischemic cardiomyopathy with AICD , chronic CHF, bronchitis, sinus problems, possibly parkinson's disease, mild short term memory issues, chronic renal failure stage III, PVD, R AKA, lower GI bleed/colitis/polyps, anemia, insomnia, last seizure about 2011. Last Myocardial Infarction Date:: unknown History of Any Multi-Drug Resistant Organisms: C-DIFF Date of last positivie culture/infection: August, MDRO Source:: Stool Past Surgical History: AICD, Heart Catheterization With Stent, Orthopedic Surgery, Prostate Surgery Additional Past Surgical History / Comment(s): Multiple cardiac stents-pt cannot recall date of last stent and ID cards are at home, lower extremity stents, AICD, DFTs, prostatectomy, right [id number] amputation for peripheral vascular disease May-2011, L leg skin grafts d/t hatfield, colonoscopy. Past Anesthesia/Blood Transfusion Reactions: No Reported Reaction Additional Past Anesthesia/Blood Transfusion Reaction / Comment(s): Pt has received blood in past without reaction. Date of Last Stent Placement:: unknown Type of Cardiac Device: AICD Device Placement Date:: 08/22/15 Smoking Status: Current every day smoker - Past Family History Father Family Medical History: Myocardial Infarction ([place]) Additional Family Medical History / Comment(s): Father at age 56 from a myocardial infarction. Mother Family Medical History: Cancer Additional Family Medical History / Comment(s): Mother at age 74 from bladder cancer with metastases to the bone. Brother(s) Family Medical History: Myocardial Infarction ([place]) Additional Family Medical History / Comment(s): Patient had 1 brother that at age 60 from a myocardial infarction Sister(s) Family Medical History: Dementia, Musculoskeletal Disorder, Neurologic Disorder Additional Family Medical History / Comment(s): PARKINSONS Medications and Allergies Home Medications Medication Instructions Recorded Confirmed Type Omeprazole [PriLOSEC] 20 mg PO AC-BRKFST #30 01/27/14 03/10/18 Rx Isosorbide Mononitrate ER [Imdur] 30 mg PO DAILY 08/31/15 03/10/18 History Potassium Chloride [Klor-Con 10] 10 meq PO DAILY 08/31/15 03/10/18 History Amiodarone [Cordarone] 200 mg PO BID 10/08/16 03/10/18 History Furosemide [Lasix] 20 mg PO DAILY 02/01/17 03/10/18 History Albuterol Nebulized [Ventolin 2.5 mg INHALATION Q4H PRN 03/10/18 03/10/18 History Nebulized] Aspirin EC [Ecotrin] 325 mg PO DAILY 03/10/18 03/10/18 History Carvedilol [Coreg] 6.25 mg PO BID 03/10/18 03/10/18 History Dicyclomine [Bentyl] 10 mg PO QID PRN 03/10/18 03/10/18 History Metoclopramide HCl [Reglan] 5 mg PO BID PRN 03/10/18 03/10/18 History Naproxen [Naprosyn] 250 mg PO BID PRN 03/10/18 03/10/18 History hydrALAZINE HCL [Apresoline] 50 mg PO TID 03/10/18 03/10/18 History Allergies Allergy/AdvReac Type Severity Reaction Status Date / Time milk thistle (Silybum Allergy Severe Anaphylaxis Verified 03/10/18 10:06 marianum) Physical Exam Vitals: Vital Signs Temp Pulse Pulse Resp BP BP Pulse Ox 03/10/18 12:50 70 18 122/78 99 03/10/18 12:45 63 16 145/78 99 03/10/18 12:40 62 18 153/82 96 03/10/18 12:35 65 18 190/89 96 03/10/18 12:00 97.8 F 64 20 196/81 100 03/10/18 11:05 58 L 17 152/81 100 03/10/18 10:28 59 L 17 160/79 100 03/10/18 09:27 98.1 F 60 18 176/86 100 Intake and Output 03/09/18 03/10/18 03/10/18 22:59 06:59 14:59 Output Total 250 Balance -250 Output: Urine 250 Other: Weight 73.482 kg Results 03/10/18 09:15 03/10/18 09:15 Cardiac Enzymes 03/10/18 03/10/18 Range/Units 09:15 09:15 AST 28 (17-59) U/L CK-MB (CK-2) 6.0 H (0.0-2.4) ng/mL Troponin I 2.970 H* (0.000-0.034) ng/mL Coagulation 03/10/18 Range/Units 09:15 PT 10.4 (9.0-12.0) sec APTT 24.7 (22.0-30.0) sec CBC 03/10/18 Range/Units 09:15 WBC 6.5 (3.8-10.6) k/uL RBC 4.34 (4.30-5.90) m/uL Hgb 14.0 (13.0-17.5) gm/dL Hct 42.9 (39.0-53.0) % Plt Count 136 L (150-450) k/uL Comprehensive Metabolic Panel 03/10/18 Range/Units 09:15 Sodium 143 (137-145) mmol/L Potassium 4.2 (3.5-5.1) mmol/L Chloride 107 (98-107) mmol/L Carbon Dioxide 30 (22-30) mmol/L BUN 21 H (9-20) mg/dL Creatinine 1.56 H (0.66-1.25) mg/dL Glucose 110 H (74-99) mg/dL Calcium 9.1 (8.4-10.2) mg/dL AST 28 (17-59) U/L ALT 17 L (21-72) U/L Alkaline Phosphatase 54 (38-126) U/L Total Protein 6.4 (6.3-8.2) g/dL Albumin 3.4 L (3.5-5.0) g/dL Current Medications Generic Name Dose Route Start Last Admin Trade Name Freq PRN Reason Stop Dose Admin Albuterol Sulfate 2.5 mg 03/10/18 12:10 Ventolin Nebulized INHALATION RT-Q4H PRN Shortness Of Breath Amiodarone HCl 200 mg 03/10/18 12:15 03/10/18 13:19 Cordarone PO 200 mg BID GUIDO Administration Aspirin 81 mg 03/11/18 09:00 Aspirin PO DAILY GUIDO Dicyclomine HCl 10 mg 03/10/18 12:10 Bentyl PO QID PRN IBS Furosemide 20 mg 03/10/18 12:15 03/10/18 13:19 Lasix PO 20 mg DAILY GUIDO Administration Heparin Sodium (Porcine) 0 unit 03/10/18 10:13 Heparin IV Q6HR PRN Low PTT Protocol Hydralazine HCl 50 mg 03/10/18 12:15 03/10/18 13:19 Apresoline PO 50 mg TID GUIDO Administration Heparin Sodium/Sodium Chloride 500 mls @ 17.63 mls/hr 03/10/18 10:15 10:24 25,000 unit/ Sodium Chloride IV 12 units/kg/hr .Q24H GUIDO 17.63 mls/hr Administration Protocol 12 UNITS/KG/HR Metoclopramide HCl 5 mg 03/10/18 12:10 Reglan PO BID PRN Nausea Metoprolol Tartrate 25 mg 03/10/18 21:00 Lopressor PO BID GUIDO Nitroglycerin 0.4 mg 03/10/18 10:13 03/10/18 12:45 Nitrostat SUBLINGUAL 0.4 mg Q5M PRN Administration Chest Pain Nitroglycerin 1 inch 03/10/18 18:00 Nitro-Bid Oint TOPICAL Q6HR GUIDO Pantoprazole Sodium 40 mg 03/10/18 12:15 03/10/18 13:19 Protonix PO 40 mg AC-BRKFST GUIDO Administration Potassium Chloride 10 meq 03/10/18 12:15 03/10/18 13:19 K-Dur 10 PO 10 meq DAILY GUIDO Administration Intake and Output 03/09/18 03/10/18 03/10/18 22:59 06:59 14:59 Output Total 250 Balance -250 Output: Urine 250 Other: Weight 73.482 kg Patient Weight 03/11/18 06:59 Weight 73.482 kg 03/10/18 09:15 03/10/18 09:15
[2018-03-10] MEDS: ALBUTEROL NEBULIZED 2.5 MG/3 ML INHALATION PRN ×2 (15:36→21:36)
[2018-03-10] MEDS: NITROGLYCERIN-D5W PMX 50 MG in DEXTROSE/WATER 1 250ML.BAG IV SCH (15:39)
[2018-03-10 16:26] LABS: Creatine Kinase MB 4.9 ng/mL (0.0-2.4)
[2018-03-10 16:39] LABS: Troponin I 2.52 ng/mL (0.000-0.034)
[2018-03-10] MEDS ORDERED: NITROGLYCERIN OINT 1 INCH/GM PACKET TOPICAL SCH (18:00)
[2018-03-10] MEDS: NICOTINE 14MG/24HR PATCH TRANSDERM SCH (18:24)
--- NOTE | 2018-03-10 18:46 | ECHOF ---
Referral Reason:mi,cp MEASUREMENTS -------- HEIGHT: 170.2 cm WEIGHT: 73.5 kg BP: 122/78 RVIDd: 3.1 cm (< 3.3) IVSd: 1.4 cm (0.6 - 1.1) LVIDd: 6.0 cm (3.9 - 5.3) LVPWd: 1.4 cm (0.6 - 1.1) IVSs: 1.9 cm LVIDs: 5.5 cm LVPWs: 1.5 cm LAESV Index (A-L): 24.52 ml/m Ao Diam: 3.8 cm (2.0 - 3.7) AV Cusp: 1.7 cm (1.5 - 2.6) LA Diam: 4.3 cm (2.7 - 3.8) MV E Tyler: 0.51 m/s MV DecT: 193 ms MV A Tyler: 1.01 m/s MV E/A Ratio: 0.51 RAP: 5.00 mmHg RVSP: 27.85 mmHg FINDINGS -------- Resting bradycardia (HR<60bpm). This was a technically difficult study with suboptimal views. The left ventricle is mildly dilated. There is mild concentric left ventricular hypertrophy. Ther e is severe global hypokinesis of LV . Overall left ventricular systolic function is severely impai red with, an EF < 20%. The RV was not well visualized. Normal LA size by volume 22+/-6 ml/m2. The right atrium is normal in size. Electronic pacemaker lead seen in the right ventricular cavity. 3 ml of Lumason was utilized for enhancement of images. There is mild aortic valve sclerosis. There is no evidence of aortic regurgitation. There is no e vidence of aortic stenosis. The mitral valve leaflets are mildly thickened. Mild mitral annular calcification present. Mild m itral regurgitation is present. Trace tricuspid regurgitation present. Right ventricular systolic pressure is normal at < 35 mmHg. There is no evidence of pulmonary hypertension. The pulmonic valve was not well visualized. The aortic root size is normal. Normal inferior vena cava with normal inspiratory collapse consistent with estimated right atrial pre ssure of 5 mmHg. There is no pericardial effusion. CONCLUSIONS -------- 1. Resting bradycardia (HR<60bpm). 2. This was a technically difficult study with suboptimal views. 3. The left ventricle is mildly dilated. 4. There is mild concentric left ventricular hypertrophy. 5. There is severe global hypokinesis of LV . 6. Overall left ventricular systolic function is severely impaired with, an EF < 20%. 7. The RV was not well visualized. 8. Normal LA size by volume 22+/-6 ml/m2. 9. Electronic pacemaker lead seen in the right ventricular cavity. 10. 3 ml of Lumason was utilized for enhancement of images. 11. There is mild aortic valve sclerosis. 12. The mitral valve leaflets are mildly thickened. 13. Mild mitral annular calcification present. 14. Mild mitral regurgitation is present. 15. Trace tricuspid regurgitation present. 16. Right ventricular systolic pressure is normal at < 35 mmHg. 17. There is no evidence of pulmonary hypertension. 18. The pulmonic valve was not well visualized. 19. The aortic root size is normal. 20. There is no pericardial effusion. [employer]: Kun Judd RDCS
--- NOTE | 2018-03-10 18:52 | HP ---
HISTORY AND PHYSICAL DATE OF ADMISSION: 03/10/2018 PRESENTING COMPLAINT: Chest pain. HISTORY OF PRESENTING COMPLAINT: This is a very pleasant 78-year-old patient who follows with Dr. Clark. Patient last night started off with central chest pain that felt like a steady pressure, did not radiate to the neck or arm. It was present overnight and became worse. There was no new shortness of breath, no dizziness, no lightheadedness. The patient at baseline has some shortness of breath. Patient presented and patient's troponin came back to be 2.9 and 2.5. The patient was admitted with acute MO, put on IV heparin. The patient does have chronic kidney disease. Cardiology was consulted. The patient was put on IV heparin. The patient is still having some active chest pain. Patient has known prior history of coronary artery disease with stent. REVIEW OF SYSTEMS: CONSTITUTIONAL: Tired. HEENT: None. RESPIRATORY: As above. CARDIOVASCULAR: As above. GASTROINTESTINAL: None. GENITOURINARY: None. MUSCULOSKELETAL: Aches and pain in the joints. DERMATOLOGICAL: None. HEMATOLOGICAL: None. LYMPHATICS: None. PSYCHIATRY: None. NEUROLOGICAL: None. PAST MEDICAL HISTORY: 1. Atrial fibrillation. 2. Coronary artery disease. 3. Heart failure. 4. COPD. 5. Questionable dementia. 6. GI bleed. 7. Hard of hearing. 8. Hyperlipidemia. 9. Hypertension. 10.Prostate disorder. 11.Chronic kidney disease. 12.Seizure disorder. 13.Vascular disorder. 14.Ischemic cardiomyopathy with AICD, chronic. 15.Congestive heart failure. 16.Chronic kidney disease, stage III. 17.Peripheral arterial disease. 18.Right above-knee amputation. 19.Chronic insomnia. 20.Last seizure in 2011. PAST SURGICAL HISTORY: 1. AICD. 2. Cardiac cath with stent. 3. Prostate surgery. 4. Multiple cardiac stents. The patient cannot recall the last stent. 5. Lower extremity stents. 6. Prostatectomy. 7. Right above-knee amputation in 2010. 8. Left leg skin grafting due to hatfield. PAST PSYCH HISTORY: Depression and bipolar. SOCIAL HISTORY: Lives by himself. Still smoking one half pack a day and has been doing so for over 60 years. Denies any alcohol, though did drink alcohol earlier in his life. FAMILY HISTORY: Father at age 56. HOME MEDICATIONS: 1. Hydralazine 50 mg p.o. t.i.d. 2. Potassium 10 mEq a day. 3. Prilosec 20 mg with breakfast. 4. Naproxen 250 mg p.o. b.i.d. p.r.n. 5. Reglan 5 mg p.o. b.i.d. p.r.n. 6. Imdur ER 30 mg p.o. daily. 7. Lasix 20 mg p.o. daily. 8. Bentyl 10 mg p.o. q.i.d. p.r.n. 9. Coreg 6.25 p.o. b.i.d. 10.Aspirin 325 p.o. daily. 11.Amiodarone 200 mg p.o. b.i.d. 12.Ventolin 2.5 q.4 p.r.n. ALLERGIES: MILK THISTLE. PHYSICAL EXAMINATION: VITAL SIGNS ON PRESENTATION: Temperature 98.1, pulse 60, respiration 18, blood pressure 176/86, pulse ox 1005 on 2 L. GENERAL APPEARANCE: Average build. Lying in bed. Somewhat tired-appearing. EYES: Pupils equal. Conjunctivae normal. HEENT: External appearance of nose and ears normal. Oral cavity normal. NECK: JVD not raised. Mass not palpable. RESPIRATORY: Effort normal. LUNGS: Diminished breath sounds. CARDIOVASCULAR: First and second sounds normal. No edema. ABDOMEN: Soft, non-tender. Liver and spleen not palpable. LYMPHATIC: No lymph node palpable in neck or axillae. PSYCHIATRY: Alert and oriented x3. Mood and affect normal. NEUROLOGICAL: Pupils equal. Cranial nerves grossly intact. Power and sensation grossly intact. EXTREMITIES: Right above-knee amputation. INVESTIGATIONS: White count 6.5, hemoglobin 14, potassium 4.2, BUN 21, creatinine 1.56. Troponin 2.9; repeat 2.5. EKG tracing, personally reviewed by me, shows left bundle branch block and some non- specific changes. Chest CTA negative for PE. Chest x-ray film, personally reviewed by me, shows some cardiomegaly, some prominent pulmonary artery. ASSESSMENT: 1. Acute non-Q-wave myocardial infarction, present on admission. 2. Chronic obstructive pulmonary disease in a current smoker. 3. Chronic nicotine dependence. Patient is a cigarette smoker. 4. Left bundle branch block. 5. Coronary artery disease with prior stent. 6. History of atrial fibrillation, currently in sinus rhythm. 7. Chronic congestive heart failure, ejection fraction not known, from underlying coronary artery disease. 8. Hyperlipidemia. 9. Essential hypertension. 10.Peripheral arterial disease and right above-knee amputation. 11.Automated implantable cardioverter defibrillator. 12.Chronic kidney disease, stage III, probably from nephrosclerosis. 13.IV heparin monitoring. PLAN: Home medications are resumed. Patient is put on IV heparin. The patient is also on beta lino and nitroglycerin drip. Cardiology was consulted. Patient did get IV contrast in the ER for PE protocol. Will hold off the Lasix for now. Both Cardiology and Nephrology were consulted. Care was discussed with the patient. Smoking cessation counseling was done at length with the patient. The patient said he is trying to quit. More than 3 minutes was spent on this aspect of the case. SHIRLEY / STEPHANIA: [id number] /
[2018-03-10] MEDS: METOPROLOL TARTRATE 25 MG TAB PO SCH (19:55)
[2018-03-10 22:39] LABS: Creatine Kinase MB 2.8 ng/mL (0.0-2.4)
[2018-03-10 22:45] LABS: Troponin I 2.42 ng/mL (0.000-0.034)
[2018-03-11 02:16] LABS: Cholesterol 196 mg/dL (<200); HDL Cholesterol 30 mg/dL (40-60); LDL Cholesterol,Calculated 142 mg/dL (0-99); Triglycerides 118 mg/dL (<150)
[2018-03-11] MEDS: PANTOPRAZOLE 40 MG TABLET PO SCH (07:09)
[2018-03-11] MEDS: ALBUTEROL NEBULIZED 2.5 MG/3 ML INHALATION PRN ×3 (07:15→18:48)
[2018-03-11 07:20] LABS: Mean Platelet Volume 7.2; Platelet Count 131 k/uL (150-450)
[2018-03-11 08:26] LABS: Calcium 8.2 mg/dL (8.4-10.2); Potassium 3.8 mmol/L (3.5-5.1)
[2018-03-11] MEDS ORDERED: ASPIRIN 325 MG TAB PO SCH ×2 (09:00)
--- NOTE | 2018-03-11 09:59 | P.NPCON ---
History of Present Illness - Reason for Consult acute renal failure, chronic renal failure - History of Present Illness Reason for consultation: Acute kidney injury on chronic kidney disease History of present illness: Patient is a 78-year-old male seen in consultation for acute kidney injury on chronic kidney disease. Patient has chronic kidney disease stage III with baseline creatinine in the range of 1.3-1.5 secondary to cardiorenal syndrome. Patient has history of systolic CHF with ejection fraction of less than 20%. Patient presented to the hospital with chest pain that started at night. Patient states he was sleeping in bed in the chest pain woke him up. He subsequently called the ambulance to bring him to the hospital. Patient states the pain was mostly mid chest and describes it as a pressure. Overall his pain is improved. He is currently on IV heparin as well as nitroglycerin. Hemodynamically stable. He also had a CTA done on admission on March 10 which revealed no evidence of pulmonary embolus. Admits to good urine output. No hematuria or dysuria. No fever or chills. Oral intake is fair. Denies use of NSAIDs. Denies family history of renal disease. Creatinine stable at 1.51 today. Vital signs are stable. General: The patient appeared well nourished and normally developed. HEENT: Head exam is unremarkable. Neck is without jugular venous distension. LUNGS: Lungs are clear to auscultation and percussion. Breath sounds decreased. HEART: Rate and Rhythm are regular. First and second heart sounds normal. No murmurs, rubs or gallops. ABDOMEN: Abdominal exam reveals normal bowel sounds. Non-tender and non- distended. No evidence of peritonitis. EXTREMITITES: No clubbing, cyanosis, or edema. Right rwxje-wda-ngfr amputation noted. Past Medical History Past Medical History: Atrial Fibrillation, Coronary Artery Disease (CAD), Cancer , Chest Pain / Angina, Heart Failure, COPD, Dementia, GI Bleed, Hearing Disorder / Deafness, Hyperlipidemia, Hypertension, Memory Impairment, Pneumonia , Prostate Disorder, Renal Disease, Seizure Disorder, Vascular Disorder Additional Past Medical History / Comment(s): Ischemic cardiomyopathy with AICD , chronic CHF, bronchitis, sinus problems, possibly parkinson's disease, mild short term memory issues, chronic renal failure stage III, PVD, R AKA, lower GI bleed/colitis/polyps, anemia, insomnia, last seizure about 2011. Last Myocardial Infarction Date:: unknown History of Any Multi-Drug Resistant Organisms: C-DIFF Date of last positivie culture/infection: August, MDRO Source:: Stool Past Surgical History: AICD, Heart Catheterization With Stent, Orthopedic Surgery, Prostate Surgery Additional Past Surgical History / Comment(s): Multiple cardiac stents-pt cannot recall date of last stent and ID cards are at home, lower extremity stents, AICD, DFTs, prostatectomy, right [id number] amputation for peripheral vascular disease May-2011, L leg skin grafts d/t hatfield, colonoscopy. Past Anesthesia/Blood Transfusion Reactions: No Reported Reaction Additional Past Anesthesia/Blood Transfusion Reaction / Comment(s): Pt has received blood in past without reaction. Date of Last Stent Placement:: unknown Type of Cardiac Device: AICD Device Placement Date:: 08/22/15 Smoking Status: Current every day smoker - Past Family History Father Family Medical History: Myocardial Infarction ([place]) Additional Family Medical History / Comment(s): Father at age 56 from a myocardial infarction. Mother Family Medical History: Cancer Additional Family Medical History / Comment(s): Mother at age 74 from bladder cancer with metastases to the bone. Brother(s) Family Medical History: Myocardial Infarction ([place]) Additional Family Medical History / Comment(s): Patient had 1 brother that at age 60 from a myocardial infarction Sister(s) Family Medical History: Dementia, Musculoskeletal Disorder, Neurologic Disorder Additional Family Medical History / Comment(s): PARKINSONS Medications and Allergies Home Medications Medication Instructions Recorded Confirmed Type Omeprazole [PriLOSEC] 20 mg PO AC-BRKFST #30 01/27/14 03/10/18 Rx Isosorbide Mononitrate ER [Imdur] 30 mg PO DAILY 08/31/15 03/10/18 History Potassium Chloride [Klor-Con 10] 10 meq PO DAILY 08/31/15 03/10/18 History Amiodarone [Cordarone] 200 mg PO BID 10/08/16 03/10/18 History Furosemide [Lasix] 20 mg PO DAILY 02/01/17 03/10/18 History Albuterol Nebulized [Ventolin 2.5 mg INHALATION Q4H PRN 03/10/18 03/10/18 History Nebulized] Aspirin EC [Ecotrin] 325 mg PO DAILY 03/10/18 03/10/18 History Carvedilol [Coreg] 6.25 mg PO BID 03/10/18 03/10/18 History Dicyclomine [Bentyl] 10 mg PO QID PRN 03/10/18 03/10/18 History Metoclopramide HCl [Reglan] 5 mg PO BID PRN 03/10/18 03/10/18 History Naproxen [Naprosyn] 250 mg PO BID PRN 03/10/18 03/10/18 History hydrALAZINE HCL [Apresoline] 50 mg PO TID 03/10/18 03/10/18 History Allergies Allergy/AdvReac Type Severity Reaction Status Date / Time milk thistle (Silybum Allergy Severe Anaphylaxis Verified 03/10/18 10:06 marianum) Physical Exam Vitals: Vital Signs Temp Pulse Pulse Pulse Resp BP BP 03/11/18 07:50 98.0 F 56 L 18 138/57 03/11/18 07:27 56 L 03/11/18 07:16 54 L 03/11/18 04:00 97.9 F 65 18 130/80 03/10/18 23:35 98.5 F 62 18 122/74 03/10/18 21:47 80 03/10/18 21:36 78 03/10/18 20:00 98.9 F 60 18 140/79 03/10/18 16:41 108/56 03/10/18 15:48 73 03/10/18 15:47 138/79 03/10/18 15:39 72 03/10/18 15:27 66 20 168/90 03/10/18 12:50 70 18 122/78 03/10/18 12:45 63 16 145/78 03/10/18 12:40 62 18 153/82 03/10/18 12:35 65 18 190/89 03/10/18 12:00 97.8 F 64 20 196/81 03/10/18 11:05 58 L 17 152/81 03/10/18 10:28 59 L 17 160/79 Pulse Ox 03/11/18 07:50 96 03/11/18 07:27 03/11/18 07:16 100 03/11/18 04:00 98 03/10/18 23:35 97 03/10/18 21:47 03/10/18 21:36 97 03/10/18 20:00 98 03/10/18 16:41 03/10/18 15:48 03/10/18 15:47 03/10/18 15:39 03/10/18 15:27 98 03/10/18 12:50 99 03/10/18 12:45 99 03/10/18 12:40 96 03/10/18 12:35 96 03/10/18 12:00 100 03/10/18 11:05 100 03/10/18 10:28 100 Intake and Output 03/10/18 03/11/18 03/11/18 22:59 06:59 14:59 Intake Total 488.086 240.641 Output Total 600 Balance 488.086 -600 240.641 Intake: IV 20 Invasive Line 2 20 Intake, IV Titration 228.086 240.641 Amount Heparin Sod,Pork in 0.45% 225.086 240.641 NaCl 25,000 unit In 0.45 % NaCl 1 500ml.bag @ 12 UNITS/KG/HR 17.63 mls/hr IV .Q24H GUIDO Rx#: [id number] Nitroglycerin-D5w Pmx 50 3 mg In Dextrose/Water 1 250ml.bag @ 10 MCG/MIN 3 mls/hr IV .Q24H GUIDO Rx#: [id number] Oral 240 Output: Urine 600 Other: # Voids 1 Weight 69.5 kg Results - Lab Results Most recent lab results Calcium 8.2 mg/dL (8.4-10.2) L 03/11/18 06:09 Magnesium 1.9 mg/dL (1.6-2.3) 03/10/18 09:15 03/11/18 06:09 03/11/18 06:09 Assessment and Plan Plan: Assessment: 1. Mild nonoliguric acute kidney injury mostly prerenal secondary to hemodynamic instability. Creatinine was 1.56 on admission and is 1.51 today. 2. Chronic kidney disease stage III secondary to cardiorenal syndrome with baseline creatinine in the range of 1.3-1.5. 3. Systolic CHF with ejection fraction of less than 20%. 4. Chest pain secondary to non-ST elevated PA. Cardiology following. No evidence of PE noted on CTA done on March 10. 5. History of atrial fibrillation. 6. History of peripheral arterial disease status post right [id number] habitation. Plan: Check urinalysis. Check renal ultrasound. Encourage oral intake. Avoid nephrotoxins. Potential cardiac catheterization per cardiology. I discussed with the patient the risk of developing contrast-induced nephropathy post procedure. He understands. I would hydrate him with normal saline at 50 mL an hour to be started 6 hours prior to the procedure and to be continued 6 hours post procedure. Avoid aggressive hydration due to severely depressed LV function. Continue to monitor renal function and urine output. Patient received IV contrast on March 10 for CTA as well. Repeat electrolytes in the morning. Thank you for the consultation. I will continue to follow the patient with you during his hospital stay.
[2018-03-11] MEDS: hydrALAZINE HCL 50 MG TAB PO SCH ×3 (10:46→21:34)
[2018-03-11] MEDS: ASPIRIN 81 MG PO SCH (10:46)
[2018-03-11] MEDS: AMIODARONE 200 MG TAB PO SCH ×2 (10:46→21:33)
[2018-03-11] MEDS: METOPROLOL TARTRATE 25 MG TAB PO SCH ×2 (10:46→21:33)
[2018-03-11] MEDS: POTASSIUM CHLORIDE ER 10 MEQ TAB.ER.PRT PO SCH (10:47)
[2018-03-11] MEDS ORDERED: NITROGLYCERIN SL TABS 0.4 MG TAB SUBLINGUAL PRN (12:06)
[2018-03-11] MEDS ORDERED: ATORVASTATIN 80 MG TAB PO STA (12:06)
[2018-03-11] MEDS ORDERED: ASPIRIN 325 MG TAB PO STA (12:06)
[2018-03-11] MEDS ORDERED: ALPRAZolam 0.25 MG TAB PO PRN (12:06)
[2018-03-11] MEDS ORDERED: ALPRAZolam 0.5 MG TAB PO PRN (12:06)
[2018-03-11] MEDS ORDERED: SODIUM CHLORIDE 0.9% 1,000 ML in EMPTY BAG 1 BAG IV ONE (12:06)
[2018-03-11] MEDS: NICOTINE 14MG/24HR PATCH TRANSDERM SCH (13:04)
--- NOTE | 2018-03-11 14:20 | P.PN ---
Subjective Progress Note Date: 03/11/18 This is a 78-year-old gentleman who follows with Dr. Parnell in the office. He has known history of coronary artery disease with prior PCI, ischemic cardio myopathy with prior AICD, peripheral vascular disease, right lower extremity amputee, peripheral artery disease with prior stent placement, hypertension, hyperlipidemia, patient presented to the hospital with symptoms of midsternal chest discomfort, ruled in for non-Q-wave myocardial infarction. Patient was seen in consultation by Dr. Fleming and recommended to undergo cardiac catheterization. He did discuss this with Dr. Parnell today and subsequently Dr. Leyva, Dr. Leyva will perform the procedure tomorrow via radial approach. Risks and benefits were explained to the patient in detail. Blood pressure 90/50 with a heart rate in the 50s. Sodium 142, potassium 3.8, BUN 19, creatinine 1.5. Nephrology is also following the patient and they have recommendations for IV fluids prior and post cath. Objective - Vital Signs Vital signs: Vital Signs Temp 97.6 F 03/11/18 12:47 Pulse 57 L 03/11/18 12:49 Resp 16 03/11/18 12:47 BP 90/52 03/11/18 12:47 Pulse Ox 96 03/11/18 07:50 Intake & Output 03/10/18 03/11/18 03/11/18 18:59 06:59 18:59 Intake Total 354.951 133.135 240.641 Output Total 250 600 Balance 104.951 -466.865 240.641 Weight 73.482 kg 69.5 kg Intake: IV 20 Invasive Line 2 20 Intake, IV Titration 114.951 113.135 240.641 Amount Heparin Sod,Pork in 0.45% 111.951 113.135 240.641 NaCl 25,000 unit In 0.45 % NaCl 1 500ml.bag @ 12 UNITS/KG/HR 17.63 mls/hr IV .Q24H [facility] Rx#: [id number] Nitroglycerin-D5w Pmx 50 3 mg In Dextrose/Water 1 250ml.bag @ 10 MCG/MIN 3 mls/hr IV .Q24H [facility] Rx#: [id number] Oral 240 Output: Urine 250 600 Other: # Voids 1 - Exam PHYSICAL EXAMINATION: GENERAL: 78-year-old gentleman in no acute distress at the time of my examination HEENT: Head is atraumatic, normocephalic. Pupils equal, round. Sclera anicteric. Conjunctiva are clear. Mucous membranes of the mouth are moist. Neck is supple. There is no elevated jugular venous pressure. No carotid bruit is heard. HEART EXAMINATION: Heart S1, S2 normal. No murmur or gallop heard. CHEST EXAMINATION: Circumflex clear with diminished air entry to bilateral bases. ABDOMEN: Soft, nontender. Bowel sounds are heard. No organomegaly noted. EXTREMITIES: 2+ left peripheral pulse, patient has a right ivdzt-yrx-qdxr amputation noted. NEUROLOGIC patient is awake, alert and oriented ?-3. . - Labs CBC & Chem 7: 03/11/18 06:09 03/11/18 06:09 Labs: Abnormal Lab Results - Last 24 Hours (Table) 03/10/18 03/10/18 03/10/18 Range/Units 09:15 15:27 15:27 Plt Count (150-450) k/uL APTT 42.9 H (22.0-30.0) sec Creatinine (0.66-1.25) mg/dL Calcium (8.4-10.2) mg/dL CK-MB (CK-2) 4.9 H (0.0-2.4) ng/mL Troponin I 2.520 H* (0.000-0.034) ng/mL LDL Cholesterol, Calc 142 H (0-99) mg/dL HDL Cholesterol 30 L (40-60) mg/dL 03/10/18 03/10/18 03/11/18 Range/Units 21:41 21:41 06:09 Plt Count (150-450) k/uL APTT 39.5 H 97.8 H (22.0-30.0) sec Creatinine (0.66-1.25) mg/dL Calcium (8.4-10.2) mg/dL CK-MB (CK-2) 2.8 H (0.0-2.4) ng/mL Troponin I 2.420 H* (0.000-0.034) ng/mL LDL Cholesterol, Calc (0-99) mg/dL HDL Cholesterol (40-60) mg/dL 03/11/18 03/11/18 Range/Units 06:09 06:09 Plt Count 131 L (150-450) k/uL APTT (22.0-30.0) sec Creatinine 1.51 H (0.66-1.25) mg/dL Calcium 8.2 L (8.4-10.2) mg/dL CK-MB (CK-2) (0.0-2.4) ng/mL Troponin I (0.000-0.034) ng/mL LDL Cholesterol, Calc (0-99) mg/dL HDL Cholesterol (40-60) mg/dL Assessment and Plan Plan: Assessment and plan #1 non-Q-wave [place] #2 acute on chronic kidney injury #3 systolic congestive heart failure acute on chronic #4 paroxysmal atrial fibrillation #5 history of peripheral arterial disease with prior PCI, status post right kfqjk-pib-hapk amputation #6 coronary artery disease with prior PCI #7 hypertension #8 hyperlipidemia Plan Echocardiogram with Doppler study has been performed which revealed an ejection fraction of less than 20%. Patient will be scheduled to undergo cardiac catheterization tomorrow by Dr. Leyva. The risks and benefits were explained to the patient in detail and he is willing to proceed. Other recommendations will be based on these findings and the patient's clinical course. DNP note has been reviewed, I agree with a documented findings and plan of care. Patient was seen and examined.
--- NOTE | 2018-03-11 15:39 | US ---
EXAMINATION TYPE: US kidneys/renal and bladder DATE OF EXAM: 03/11/2018 COMPARISON: Previous dated 06/19/2016, CT abdomen pelvis 12/13/2017 CLINICAL HISTORY: huber. HUBER EXAM MEASUREMENTS: Right Kidney: 10.1 x 4.9 x 5.1 cm Left Kidney: 6.7 x 3.4 x 2.8 cm Right Kidney: no evidence of hydronephrosis or mass Left Kidney: atrophic, echogenic, difficult to visualize Bladder: posterior wall appears possibly thickened as on prior exam Bilateral Jets seen: no There is no ascites. Right kidney shows normal cortical medullary differentiation. IMPRESSION: Atrophic left kidney. Bladder is not well distended.
[2018-03-11] MEDS: HEPARIN SOD,PORK IN 0.45% NACL 25,000 UNIT in 0.45% NACL 1 500ML.BAG IV SCH (17:10)
[2018-03-11 17:49] LABS: Appearance,Urine Clear (Clear); Bilirubin,Urine Negative (Negative); Blood,Urine Negative (Negative); Color,Urine Yellow; Glucose,Urine (UA) Negative (Negative); Ketones,Urine Negative (Negative); Leukocyte Esterase,Urine Negative (Negative); Nitrite,Urine Negative (Negative); PH, Urine 5.5 (5.0-8.0); Protein,Urine Trace (Negative); Specific Gravity,Urine 1.021 (1.001-1.035); Urobilinogen,Urine <2.0 mg/dL (<2.0)
[2018-03-11] MEDS: NITROGLYCERIN-D5W PMX 50 MG in DEXTROSE/WATER 1 250ML.BAG IV SCH (18:21)
--- NOTE | 2018-03-11 21:17 | PN ---
PROGRESS NOTE DATE OF SERVICE: March 11, 2018. PRESENTING COMPLAINT: Chest pain. INTERVAL HISTORY: Patient presented with acute non-Q-wave myocardial infarction. The patient has underlying chronic kidney disease, on IV heparin. The patient had some more episodes of chest pain. Seen by Cardiology for a cardiac catheterization tomorrow. Does feel weak and tired and run down. REVIEW OF SYSTEMS: Done for constitutional, cardiovascular, GI, pulmonary, musculoskeletal and relevant findings as above. CURRENT MEDICATIONS: Reviewed and include IV heparin. EXAMINATION: VITAL SIGNS: Temp 98, pulse 56, respiratory 18, blood pressure 103/65, pulse ox 97% on room air. GENERAL APPEARANCE: Sitting up awake, tired. EYES: Pupils equal. Conjunctivae normal. HEENT external appearance of nose and ears normal. Oral cavity normal. NECK: JVD not raised. Mass not palpable. RESPIRATORY: Effort normal. LUNGS: Diminished breath sounds. CARDIOVASCULAR: 1st and 2nd sounds normal. No edema. ABDOMEN: Soft, nontender. Liver and spleen not palpable. PSYCHIATRY: Alert and oriented x3. Mood and affect normal. INVESTIGATIONS: Potassium 3.8, BUN 19, creatinine 1.51, troponin 2.5, 2.4. ASSESSMENT: 1. Acute non-Q-wave myocardial infarction present on admission now due for cardiac cath tomorrow. 2. Chronic obstructive pulmonary disease in a current smoker. 3. Chronic nicotine dependence, patient active cigarette smoker. 4. Left bundle branch block. 5. Coronary artery disease, prior stent. 6. History of atrial fibrillation, currently in sinus rhythm. 7. Chronic congestive heart failure from systolic dysfunction, ejection fraction less than 20% from underlying coronary artery disease. 8. Hyperlipidemia. 9. Essential hypertension. 10.Peripheral artery disease, right above knee amputation. 11.AICD. 12.Chronic kidney disease stage 3 probably from nephrosclerosis. 13.IV heparin monitoring. PLAN: Keep the patient on IV heparin. The patient is for cardiac catheterization tomorrow. Also, nitroglycerin. Has been getting chest pains. We will add 12.5 of Aldactone. Keep a close eye on renal function. MMODL / IJN: [id number] /
[2018-03-11] MEDS: SPIRONOLACTONE 25 MG TAB PO SCH (21:47)
[2018-03-12] MEDS: ASPIRIN 81 MG PO SCH (06:15)
[2018-03-12] MEDS: AMIODARONE 200 MG TAB PO SCH ×2 (06:36→20:41)
[2018-03-12] MEDS: SPIRONOLACTONE 25 MG TAB PO SCH (06:37)
[2018-03-12] MEDS: METOPROLOL TARTRATE 25 MG TAB PO SCH ×2 (06:37→20:41)
[2018-03-12] MEDS: hydrALAZINE HCL 50 MG TAB PO SCH ×3 (06:37→20:41)
[2018-03-12] MEDS: ALBUTEROL NEBULIZED 2.5 MG/3 ML INHALATION PRN ×4 (07:15→19:52)
[2018-03-12 07:27] LABS: Mean Platelet Volume 7.3; Platelet Count 123 k/uL (150-450)
[2018-03-12 07:54] LABS: Calcium 8.2 mg/dL (8.4-10.2)
[2018-03-12] MEDS: SODIUM CHLORIDE 0.9% 1,000 ML IV SCH ×3 (08:27→20:40)
--- NOTE | 2018-03-12 09:38 | P.PN ---
Subjective Patient is seen in follow-up for acute kidney injury on chronic kidney disease. Patient has chronic kidney disease stage III with baseline creatinine in the range of 1.3-1.5 secondary to cardiorenal syndrome as well as solitary right functioning kidney. Creatinine stable at 1.47 today. He is noted to have ejection fraction of less than 20%. He is scheduled to go for cardiac catheterization today. He's receiving normal saline at 50 mL an hour. No active chest pain or shortness of breath. Vital signs are stable. General: The patient appeared well nourished and normally developed. HEENT: Head exam is unremarkable. Neck is without jugular venous distension. LUNGS: Lungs are clear to auscultation and percussion. Breath sounds decreased. HEART: Rate and Rhythm are regular. First and second heart sounds normal. No murmurs, rubs or gallops. ABDOMEN: Abdominal exam reveals normal bowel sounds. Non-tender and non- distended. No evidence of peritonitis. EXTREMITITES: No clubbing, cyanosis, or edema. Right iepui-vcc-lctk amputation noted. Objective - Vital Signs Vital signs: Vital Signs Temp 97.1 F L 03/12/18 08:30 Pulse 51 L 03/12/18 08:30 Resp 18 03/12/18 08:30 BP 136/63 03/12/18 08:30 Pulse Ox 96 03/12/18 08:30 Intake & Output 03/11/18 03/12/18 03/12/18 18:59 06:59 18:59 Intake Total 556.291 Output Total 1100 Balance 556.291 -1100 Weight 71.1 kg Intake: Intake, IV Titration 356.291 Amount Heparin Sod,Pork in 0.45% 240.641 NaCl 25,000 unit In 0.45 % NaCl 1 500ml.bag @ 12 UNITS/KG/HR 17.63 mls/hr IV .Q24H [facility] Rx#: [id number] Nitroglycerin-D5w Pmx 50 115.65 mg In Dextrose/Water 1 250ml.bag @ 10 MCG/MIN 3 mls/hr IV .Q24H [facility] Rx#: [id number] Oral 200 Output: Urine 1100 Other: Voiding Method Urinal - Labs CBC & Chem 7: 03/12/18 06:34 03/12/18 06:34 Labs: Abnormal Lab Results - Last 24 Hours (Table) 03/11/18 03/11/18 03/12/18 Range/Units 15:40 17:24 06:34 Plt Count 123 L (150-450) k/uL APTT 52.3 H (22.0-30.0) sec Chloride (98-107) mmol/L Creatinine (0.66-1.25) mg/dL Calcium (8.4-10.2) mg/dL Urine Protein Trace H (Negative) 03/12/18 Range/Units 06:34 Plt Count (150-450) k/uL APTT (22.0-30.0) sec Chloride 109 H (98-107) mmol/L Creatinine 1.47 H (0.66-1.25) mg/dL Calcium 8.2 L (8.4-10.2) mg/dL Urine Protein (Negative) Assessment and Plan Plan: Assessment: 1. Mild nonoliguric acute kidney injury mostly prerenal secondary to hemodynamic instability. Creatinine was 1.56 on admission and is 1.47 today. 2. Chronic kidney disease stage III secondary to cardiorenal syndrome and solitary functioning right kidney with baseline creatinine in the range of 1.3- 1.5. Ultrasound revealed atrophic left kidney. 3. Systolic CHF with ejection fraction of less than 20%. 4. Chest pain secondary to non-ST elevated NE. Cardiology following. No evidence of PE noted on CTA done on March 10. 5. History of atrial fibrillation. 6. History of peripheral arterial disease status post right rnjpx-jru-wgmy amputation. Plan: Encourage oral intake. Avoid nephrotoxins. Cardiac cath today - I discussed with the patient the risk of developing contrast-induced nephropathy post procedure. He understands. Maintain hydration with normal saline at 50 mL an hour and continue 6 hours post procedure. Avoid aggressive hydration due to severely depressed LV function. Continue to monitor renal function and urine output. Patient received IV contrast on March 10 for CTA as well. Repeat electrolytes in the morning.
[2018-03-12] MEDS ORDERED: MIDAZOLAM 2 MG/2 ML VIAL ONE (13:23)
[2018-03-12] MEDS ORDERED: VERAPAMIL 2.5 MG/ML 2 ML AMP ONE (13:23)
[2018-03-12] MEDS ORDERED: HEPARIN SODIUM 1,000 UN/ML (10ML VL) ONE (13:23)
[2018-03-12] MEDS ORDERED: LIDOCAINE 1% INJ 10MG/ML (20 ML MDV) ONE (13:23)
[2018-03-12] MEDS ORDERED: IV FLUID CONTINUATION 1,000 ML IV ONE (13:25)
[2018-03-12] MEDS ORDERED: MIDAZOLAM 2 MG/2 ML VIAL IVP ONE (13:55)
[2018-03-12] MEDS ORDERED: LIDOCAINE 1% INJ 10MG/ML (20 ML MDV) SQ ONE (13:57)
[2018-03-12] MEDS: VERAPAMIL SYRINGE (5 MG/10 ML) INTRAARTER ONE ×2 (13:59→14:14)
[2018-03-12] MEDS ORDERED: HEPARIN SODIUM 1,000 UN/ML (10ML VL) IV ONE (14:01)
[2018-03-12] MEDS ORDERED: IOPAMIDOL-370 125ML BTL INJ ONE (14:15)
[2018-03-12] MEDS: NICOTINE 14MG/24HR PATCH TRANSDERM SCH (16:55)
[2018-03-12] MEDS: HEPARIN SOD,PORK IN 0.45% NACL 25,000 UNIT in 0.45% NACL 1 500ML.BAG IV SCH (16:55)
[2018-03-12] MEDS ORDERED: RX INFO: IV CONTRAST WAS GIVEN 1 EACH MISC MISCELLANE PRN ×2 (16:58→17:01)
[2018-03-12] MEDS ORDERED: SODIUM CHLORIDE 0.9% 1,000 ML IV SCH ×2 (17:00→17:15)
[2018-03-12] MEDS: PANTOPRAZOLE 40 MG TABLET PO SCH (17:06)
[2018-03-12] MEDS: POTASSIUM CHLORIDE ER 10 MEQ TAB.ER.PRT PO SCH (17:07)
[2018-03-12] MEDS: NITROGLYCERIN-D5W PMX 50 MG in DEXTROSE/WATER 1 250ML.BAG IV SCH (18:13)
--- NOTE | 2018-03-12 18:18 | CC ---
CARDIAC CATHETERIZATION REPORT DATE OF SERVICE: March 12, 2018 PERFORMING PHYSICIAN: Matthew Theodore MD, lumber press operator. PROCEDURE PERFORMED: 1. Selective right and left coronary angiogram. 2. Left heart catheterization. INDICATION: This is a pleasant 78-year-old gentleman with known history of coronary artery disease and prior coronary artery revascularization, who presented to the hospital complaining of chest discomfort and he was ruled in for acute non ST elevation myocardial infarction. He was seen and evaluated by Dr. Fleming who recommended proceeding with a heart catheterization. APPROACH: Right radial artery. COMPLICATION: None. LEVEL OF SEDATION: Moderate with normal sedation length about 20 minutes. PROCEDURE DESCRIPTION: After obtaining an informed consent, the patient was brought to the cardiac animal laboratory technician. The right radial artery was cannulated using micropuncture technique, the micropuncture wire passed easily, then I placed a 6-Italian sheath in the right radial artery. After that I gave the patient 2 mg of verapamil IA and weight based heparin was given as well. After that, I did selective right and left coronary angiogram using JR4 and JL3 catheters. Left heart catheterization was performed using 6-Italian pigtail catheter. The procedure was completed without any complication. SELECTIVE CORONARY ANGIOGRAM: 1. Right coronary artery is a large caliber vessel and is a dominant vessel. The RCA is stented in the proximal portion. The RCA is chronically occluded in the proximal portion and fills by collaterals from the left coronary system. 2. The left main has mild disease only. It bifurcates into left circumflex and left anterior descending artery. 3. The left circumflex is a large caliber vessel and it is a nondominant vessel. The proximal circumflex appeared to be normal and gives rise into a small OM branch which appeared to be angiographically normal. The mid left circumflex appeared to be normal and gives rise into a 2nd small OM branch which appeared to be angiographically normal before the circ continues as a small-caliber vessel in the AV groove. 4. The LAD: The proximal LAD appeared to have mild disease only. This is by the bifurcation of a large diagonal branch which appeared to have an ostial disease in the range of 50%. The mid LAD appeared to have mild disease only in the range of 40% to 50%. The LAD distally appeared to be angiographically normal. HEMODYNAMICS: The left ventricular end-diastolic pressure was 12 mmHg and no gradient was identified across the aortic valve. CONCLUSION: 1. Chronic total occlusion of the proximal RCA which fills by collaterals from the left coronary system. 2. Mild disease involving the left main coronary artery. 3. Normal left circumflex coronary system. 4. Mild to moderate disease involving the proximal and mid LAD. POSTPROCEDURE MANAGEMENT: I recommended maximize medical treatment and follow up with the patient. SHIRLEY / STEPHANIA: [id number] /
--- NOTE | 2018-03-12 22:21 | PN ---
PROGRESS NOTE DATE OF SERVICE: 03/12/2018 PRESENTING COMPLAINT: Chest pain. INTERVAL HISTORY: This patient presented with acute non-Q-wave myocardial infarction, has underlying chronic kidney disease. He did undergo cardiac catheterization, was found to have complete occlusion of RCA with collaterals. No further intervention was done. Breathing is stable. REVIEW OF SYSTEMS: Done for constitutional, cardiovascular, GI, pulmonary; relevant findings as above. CURRENT MEDICATIONS: Reviewed. They include normal saline. PHYSICAL EXAMINATION: Temperature 97.3, pulse 46, respiration 16, blood pressure 153/87, pulse ox 98% on room air. GENERAL APPEARANCE: Lying in bed, comfortable. EYES: Pupils equal. Conjunctivae normal. HEENT: External appearance of nose and ears normal. Oral cavity normal. NECK: JVD not raised. Mass not palpable. RESPIRATORY: Effort normal. LUNGS: Decreased breath sounds. CARDIOVASCULAR: First and second sounds normal. No edema. ABDOMEN: Soft, non-tender. Liver and spleen not palpable. PSYCHIATRY: Alert and oriented x3. Mood and affect normal. INVESTIGATIONS: Potassium 4, BUN 19, creatinine 1.47. ASSESSMENT: 1. Acute non-Q-wave myocardial infarction with cardiac catheterization showing complete occlusion of the right coronary artery. 2. Chronic obstructive pulmonary disease in a current smoker. 3. Chronic nicotine dependence. Patient is an active cigarette smoker. 4. Left bundle branch block. 5. Coronary artery disease with prior history of stent. 6. Paroxysmal atrial fibrillation, currently in sinus rhythm. 7. Chronic congestive heart failure from systolic dysfunction, ejection fraction less than 20%, from ischemic heart disease. 8. Hyperlipidemia. 9. Essential hypertension. 10.Peripheral artery disease with right above-knee amputation. 11.Automated implantable cardioverter defibrillator. 12.Chronic kidney disease, stage III, from nephrosclerosis. PLAN: Continue current medication and treatment plan medical management. Will check patient's renal function in the morning. MMODL / IJN: [id number] /
[2018-03-13] MEDS: PANTOPRAZOLE 40 MG TABLET PO SCH (06:50)
[2018-03-13 06:53] LABS: Mean Platelet Volume 7.7; Platelet Count 122 k/uL (150-450)
[2018-03-13 07:15] LABS: Calcium 8.6 mg/dL (8.4-10.2); Potassium 4.5 mmol/L (3.5-5.1)
[2018-03-13] MEDS: AMIODARONE 200 MG TAB PO SCH ×2 (09:03→21:33)
[2018-03-13] MEDS: hydrALAZINE HCL 50 MG TAB PO SCH ×3 (09:04→21:33)
[2018-03-13] MEDS: METOPROLOL TARTRATE 25 MG TAB PO SCH (09:04)
[2018-03-13] MEDS: NICOTINE 14MG/24HR PATCH TRANSDERM SCH (09:04)
[2018-03-13] MEDS: ASPIRIN 81 MG PO SCH (09:04)
[2018-03-13] MEDS: SPIRONOLACTONE 25 MG TAB PO SCH (09:05)
[2018-03-13] MEDS: POTASSIUM CHLORIDE ER 10 MEQ TAB.ER.PRT PO SCH (09:05)
--- NOTE | 2018-03-13 09:44 | P.PN ---
Subjective Patient is seen in follow-up for acute kidney injury on chronic kidney disease. Patient has chronic kidney disease stage III with baseline creatinine in the range of 1.3-1.5 secondary to cardiorenal syndrome as well as solitary right functioning kidney. Creatinine stable at 1.46 today. He is noted to have ejection fraction of less than 20%. No active chest pain or shortness of breath. Patient underwent cardiac catheterization on March 12 which revealed mild to moderate disease involving the proximal and mid LAD and chronic occlusion of the proximal RCA with filling by collaterals. Vital signs are stable. General: The patient appeared well nourished and normally developed. HEENT: Head exam is unremarkable. Neck is without jugular venous distension. LUNGS: Lungs are clear to auscultation and percussion. Breath sounds decreased. HEART: Rate and Rhythm are regular. First and second heart sounds normal. No murmurs, rubs or gallops. ABDOMEN: Abdominal exam reveals normal bowel sounds. Non-tender and non- distended. No evidence of peritonitis. EXTREMITITES: No clubbing, cyanosis, or edema. Right aibjy-fnx-hdpq amputation noted. Objective - Vital Signs Vital signs: Vital Signs Temp 98.2 F 03/13/18 08:43 Pulse 53 L 03/13/18 08:43 Resp 18 03/13/18 08:43 BP 141/82 03/13/18 08:43 Pulse Ox 95 03/13/18 04:15 Intake & Output 03/12/18 03/13/18 03/13/18 18:59 06:59 18:59 Intake Total 100 1300 Output Total 300 1950 Balance -200 -650 Weight 70.9 kg Intake: IV 100 Intake, IV Titration 100 Amount Sodium Chloride 0.9% 1, 100 000 ml @ 50 mls/hr IV . Q20H [facility] Rx#:[id number] Oral 1200 Output: Urine 300 1950 Other: Voiding Method Urinal Urinal Urinal # Voids 4 - Labs CBC & Chem 7: 03/13/18 06:04 03/13/18 06:04 Labs: Abnormal Lab Results - Last 24 Hours (Table) 03/13/18 03/13/18 Range/Units 06:04 06:04 Plt Count 122 L (150-450) k/uL Chloride 112 H (98-107) mmol/L Creatinine 1.46 H (0.66-1.25) mg/dL Assessment and Plan Plan: Assessment: 1. Mild nonoliguric acute kidney injury mostly prerenal secondary to hemodynamic instability. Creatinine was 1.56 on admission and is stable at 1.46 today. 2. Chronic kidney disease stage III secondary to cardiorenal syndrome and solitary functioning right kidney with baseline creatinine in the range of 1.3- 1.5. Ultrasound revealed atrophic left kidney. 3. Systolic CHF with ejection fraction of less than 20%. 4. Chest pain secondary to non-ST elevated [place]. Cardiology following. No evidence of PE noted on CTA done on March 10. Status post cardiac catheterization on March 12 which revealed rynf-xj-ktufyzbc disease in the proximal and mid LAD and chronic occlusion of the proximal RCA filled by collaterals. 5. History of atrial fibrillation. 6. History of peripheral arterial disease status post right thxuc-wdb-zhgs amputation. Plan: Encourage oral intake. Avoid nephrotoxins. Continue to monitor renal function and urine output. Patient received IV contrast on March 10 for CTA and underwent cardiac catheterization on March 12 - patient did receive IV fluids pre-and postcardiac catheterization. Repeat electrolytes in the morning.
--- NOTE | 2018-03-13 14:38 | P.PN ---
Subjective Progress Note Date: 03/13/18 This is a 78-year-old gentleman who follows with Dr. Parnell in the office. He has known history of coronary artery disease with prior PCI, ischemic cardio myopathy with prior AICD, peripheral vascular disease, right lower extremity amputee, peripheral artery disease with prior stent placement, hypertension, hyperlipidemia, patient presented to the hospital with symptoms of midsternal chest discomfort, ruled in for non-Q-wave myocardial infarction. Patient was seen in consultation by Dr. Fleming and recommended to undergo cardiac catheterization. He did discuss this with Dr. Parnell today and subsequently Dr. Leyva, Dr. Leyva will perform the procedure tomorrow via radial approach. Risks and benefits were explained to the patient in detail. Blood pressure 90/50 with a heart rate in the 50s. Sodium 142, potassium 3.8, BUN 19, creatinine 1.5. Nephrology is also following the patient and they have recommendations for IV fluids prior and post cath. 03/13/2018 Patient was taken to the cardiac catheterization lab yesterday evening by Dr. Leyva, that revealed a chronic total occlusion of the proximal RCA which fills by collaterals from the left coronary system. Mild disease involving the left main coronary artery. Normal left circumflex coronary system and mild to moderate disease involving the proximal and mid LAD. Recommendation was to maximize medical therapy. Blood pressure 144/70 with a heart rate in the 50s, 95% on room air. Sodium 142, potassium 4.5, BUN 16 and creatinine 1.4. Objective - Vital Signs Vital signs: Vital Signs Temp 98.2 F 03/13/18 12:02 Pulse 48 L 03/13/18 12:02 Resp 20 03/13/18 12:02 BP 150/70 03/13/18 12:02 Pulse Ox 97 03/13/18 12:02 Intake & Output 03/12/18 03/13/18 03/13/18 18:59 06:59 18:59 Intake Total 100 1300 1050 Output Total 300 1950 Balance -200 -650 1050 Weight 70.9 kg Intake: IV 100 Intake, IV Titration 100 450 Amount Sodium Chloride 0.9% 1, 100 000 ml @ 50 mls/hr IV . Q20H [facility] Rx#:[id number] Sodium Chloride 0.9% 1, 450 000 ml @ 75 mls/hr IV . [id number] [facility] Rx#:[id number] Oral 1200 600 Output: Urine 300 1950 Other: Voiding Method Urinal Urinal Urinal # Voids 4 - Exam PHYSICAL EXAMINATION: GENERAL: 78-year-old gentleman in no acute distress at the time of my examination HEENT: Head is atraumatic, normocephalic. Pupils equal, round. Sclera anicteric. Conjunctiva are clear. Mucous membranes of the mouth are moist. Neck is supple. There is no elevated jugular venous pressure. No carotid bruit is heard. HEART EXAMINATION: Heart S1, S2 normal. No murmur or gallop heard. CHEST EXAMINATION: Circumflex clear with diminished air entry to bilateral bases. ABDOMEN: Soft, nontender. Bowel sounds are heard. No organomegaly noted. EXTREMITIES: 2+ left peripheral pulse, patient has a right zjfue-czo-aozg amputation noted. NEUROLOGIC patient is awake, alert and oriented ?-3. . - Labs CBC & Chem 7: 03/13/18 06:04 03/13/18 06:04 Labs: Abnormal Lab Results - Last 24 Hours (Table) 03/13/18 03/13/18 Range/Units 06:04 06:04 Plt Count 122 L (150-450) k/uL Chloride 112 H (98-107) mmol/L Creatinine 1.46 H (0.66-1.25) mg/dL Assessment and Plan Plan: Assessment and plan #1 non-Q-wave [place], as well as cardiac catheterization which revealed a chronic total occlusion of the proximal RCA which fills by collaterals from the left coronary system. Mild disease involving the left main coronary artery, normal left circumflex system, mild to moderate disease involving the proximal and mid LAD, medical therapy advised #2 acute on chronic kidney injury #3 systolic congestive heart failure acute on chronic #4 paroxysmal atrial fibrillation #5 history of peripheral arterial disease with prior PCI, status post right cyzot-gau-bbfw amputation #6 coronary artery disease with prior PCI #7 hypertension #8 hyperlipidemia Plan From cardiology's perspective, we will continue current medications. Plan for possible discharge home in 24 hours if stable. DNP note has been reviewed, I agree with a documented findings and plan of care. Patient was seen and examined.
[2018-03-13] MEDS: ALBUTEROL NEBULIZED 2.5 MG/3 ML INHALATION PRN ×2 (16:27→20:56)
[2018-03-13] MEDS: CARVEDILOL 3.125 MG TAB PO SCH (17:49)
--- NOTE | 2018-03-13 20:24 | PN ---
PROGRESS NOTE DATE OF SERVICE: 03/13/18 PRESENTING COMPLAINT: Chest pain. INTERVAL HISTORY: Patient presented with acute non-Q-wave myocardial infarction and underlying chronic kidney disease, status post cardiac catheterization for the complete occlusion of RCA and collaterals. No chest pain. Breathing is stable. Renal function has remained stable, being followed by Cardiology. REVIEW OF SYSTEMS: Done for constitutional, cardiovascular, GI, pulmonary; relevant findings as above. CURRENT MEDICATIONS: Reviewed and include IV normal saline at 50 mL a hour. EXAMINATION: Temp 98, pulse 49, respirations 18, blood pressure 133/68, pulse 97% on room air. GENERAL APPEARANCE: Lying in bed, comfortable. EYES: Pupils equal. Conjunctivae normal. HEENT: External appearance of nose and ears normal. Oral cavity normal. NECK: JVD not raised. Mass not palpable. RESPIRATORY: Effort, lungs decreased breath sounds. CARDIOVASCULAR: First and second sounds, no edema. ABDOMEN: Soft, nontender. Liver and spleen not palpable. PSYCHIATRY: Alert and oriented x3. Mood and affect normal. INVESTIGATIONS: Potassium 4.5, BUN 16, creatinine 1.46. ASSESSMENT: 1. Acute non-Q-wave myocardial infarction with cardiac cath showing complete occlusion of the right coronary artery, not found to be medically managed. 2. Chronic obstructive pulmonary disease in a current smoker. 3. Chronic nicotine dependence. Patient active cigarette smoker. 4. Left bundle branch block. 5. Coronary artery disease with prior history of stent. 6. Paroxysmal atrial fibrillation currently in sinus rhythm. 7. Chronic congestive heart failure from systolic dysfunction, EF less than 20%, from ischemic heart disease. 8. Hyperlipidemia. 9. Essential hypertension. 10.Peripheral artery disease with right above-knee amputation. 11.AICD. 12.Chronic kidney stage III from nephrosclerosis. PLAN: Continue current medication and treatment plan. Care was discussed the patient. The patient will be discharged when okay with Cardiology. Renal functions remain stable. MMODL / IJN: [id number] /
[2018-03-14] MEDS: PANTOPRAZOLE 40 MG TABLET PO SCH (06:16)
[2018-03-14] MEDS: SODIUM CHLORIDE 0.9% 1,000 ML IV SCH (06:17)
[2018-03-14] MEDS: CARVEDILOL 3.125 MG TAB PO SCH (06:18)
[2018-03-14 06:24] LABS: Calcium 9.3 mg/dL (8.4-10.2); Potassium 4.5 mmol/L (3.5-5.1)
[2018-03-14 08:04] VITALS: RESP 16
--- NOTE | 2018-03-14 08:06 | P.PN ---
Subjective Patient is seen in follow-up for acute kidney injury on chronic kidney disease. Patient has chronic kidney disease stage III with baseline creatinine in the range of 1.3-1.5 secondary to cardiorenal syndrome as well as solitary right functioning kidney. Creatinine worse at 1.67 today. He is noted to have ejection fraction of less than 20%. No active chest pain or shortness of breath. Patient underwent cardiac catheterization on March 12 which revealed mild to moderate disease involving the proximal and mid LAD and chronic occlusion of the proximal RCA with filling by collaterals. Denies any complaints at this time. Vital signs are stable. General: The patient appeared well nourished and normally developed. HEENT: Head exam is unremarkable. Neck is without jugular venous distension. LUNGS: Lungs are clear to auscultation and percussion. Breath sounds decreased. HEART: Rate and Rhythm are regular. First and second heart sounds normal. No murmurs, rubs or gallops. ABDOMEN: Abdominal exam reveals normal bowel sounds. Non-tender and non- distended. No evidence of peritonitis. EXTREMITITES: No clubbing, cyanosis, or edema. Right pemjo-skz-dorr amputation noted. Objective - Vital Signs Vital signs: Vital Signs Temp 97.9 F 03/14/18 03:41 Pulse 53 L 03/14/18 03:41 Resp 18 03/14/18 03:41 BP 150/69 03/14/18 03:41 Pulse Ox 97 03/14/18 03:41 Intake & Output 03/13/18 03/14/18 03/14/18 18:59 06:59 18:59 Intake Total 1230 180 Output Total 300 900 Balance 930 -720 Weight 73.6 kg Intake: IV 180 0.9 180 Intake, IV Titration 450 Amount Sodium Chloride 0.9% 1, 450 000 ml @ 75 mls/hr IV . [id number] [facility] Rx#:[id number] Oral 780 Output: Urine 300 900 Other: Voiding Method Urinal Urinal # Voids 1 - Labs CBC & Chem 7: 03/13/18 06:04 03/14/18 05:56 Labs: Abnormal Lab Results - Last 24 Hours (Table) 03/14/18 Range/Units 05:56 BUN 22 H (9-20) mg/dL Creatinine 1.67 H (0.66-1.25) mg/dL Glucose 101 H (74-99) mg/dL Assessment and Plan Plan: Assessment: 1. Mild nonoliguric acute kidney injury mostly prerenal secondary to hemodynamic instability. Creatinine worse at 1.67 today which is due to contrast-induced nephropathy. 2. Chronic kidney disease stage III secondary to cardiorenal syndrome and solitary functioning right kidney with baseline creatinine in the range of 1.3- 1.5. Ultrasound revealed atrophic left kidney. 3. Systolic CHF with ejection fraction of less than 20%. 4. Chest pain secondary to non-ST elevated MO. Cardiology following. No evidence of PE noted on CTA done on March 10. Status post cardiac catheterization on March 12 which revealed majj-tn-tzxvjndn disease in the proximal and mid LAD and chronic occlusion of the proximal RCA filled by collaterals. 5. History of atrial fibrillation. 6. History of peripheral arterial disease status post right jexxx-rgz-tlrj amputation. Plan: Encourage oral intake. Avoid nephrotoxins. Continue to monitor renal function and urine output. Patient received IV contrast on March 10 for CTA and underwent cardiac catheterization on March 12 - patient did receive IV fluids pre-and postcardiac catheterization. Hep-Lock IV fluids. Anticipate discharge soon. Repeat basic metabolic panel with improved with 3 days of discharge and follow up outpatient in 1-2 weeks.
[2018-03-14] MEDS: hydrALAZINE HCL 50 MG TAB PO SCH ×2 (08:41→15:32)
[2018-03-14] MEDS: ASPIRIN 81 MG PO SCH (08:42)
[2018-03-14] MEDS: SPIRONOLACTONE 25 MG TAB PO SCH (08:42)
[2018-03-14] MEDS: POTASSIUM CHLORIDE ER 10 MEQ TAB.ER.PRT PO SCH (08:42)
[2018-03-14] MEDS: NICOTINE 14MG/24HR PATCH TRANSDERM SCH (08:42)
[2018-03-14] MEDS: AMIODARONE 200 MG TAB PO SCH (08:43)
[2018-03-14] MEDS ORDERED: CLOPIDOGREL 75 MG TAB PO SCH (10:15)
--- NOTE | 2018-03-14 10:31 | P.PN ---
Subjective Progress Note Date: 03/14/18 This is a 78-year-old gentleman who follows with Dr. Parnell in the office. He has known history of coronary artery disease with prior PCI, ischemic cardio myopathy with prior AICD, peripheral vascular disease, right lower extremity amputee, peripheral artery disease with prior stent placement, hypertension, hyperlipidemia, patient presented to the hospital with symptoms of midsternal chest discomfort, ruled in for non-Q-wave myocardial infarction. Patient was seen in consultation by Dr. Fleming and recommended to undergo cardiac catheterization. He did discuss this with Dr. Parnell today and subsequently Dr. Leyva, Dr. Leyva will perform the procedure tomorrow via radial approach. Risks and benefits were explained to the patient in detail. Blood pressure 90/50 with a heart rate in the 50s. Sodium 142, potassium 3.8, BUN 19, creatinine 1.5. Nephrology is also following the patient and they have recommendations for IV fluids prior and post cath. 03/13/2018 Patient was taken to the cardiac catheterization lab yesterday evening by Dr. Leyva, that revealed a chronic total occlusion of the proximal RCA which fills by collaterals from the left coronary system. Mild disease involving the left main coronary artery. Normal left circumflex coronary system and mild to moderate disease involving the proximal and mid LAD. Recommendation was to maximize medical therapy. Blood pressure 144/70 with a heart rate in the 50s, 95% on room air. Sodium 142, potassium 4.5, BUN 16 and creatinine 1.4. 03/14/2018 Patient seen and examined this morning, denies any chest pain or difficulty in breathing. Blood pressure 142/60 with a heart rate in the 50s. 97% on room air. Objective - Vital Signs Vital signs: Vital Signs Temp 97.4 F L 03/14/18 07:59 Pulse 51 L 03/14/18 07:59 Resp 16 03/14/18 07:59 BP 142/68 03/14/18 07:59 Pulse Ox 97 03/14/18 07:59 Intake & Output 03/13/18 03/14/18 03/14/18 18:59 06:59 18:59 Intake Total 1230 180 240 Output Total 300 900 Balance 930 -720 240 Weight 73.6 kg Intake: IV 180 0.9 180 Intake, IV Titration 450 Amount Sodium Chloride 0.9% 1, 450 000 ml @ 75 mls/hr IV . [id number] [facility] Rx#:[id number] Oral 780 240 Output: Urine 300 900 Other: Voiding Method Urinal Urinal # Voids 1 - Exam PHYSICAL EXAMINATION: GENERAL: 78-year-old gentleman in no acute distress at the time of my examination HEENT: Head is atraumatic, normocephalic. Pupils equal, round. Sclera anicteric. Conjunctiva are clear. Mucous membranes of the mouth are moist. Neck is supple. There is no elevated jugular venous pressure. No carotid bruit is heard. HEART EXAMINATION: Heart S1, S2 normal. No murmur or gallop heard. CHEST EXAMINATION: Circumflex clear with diminished air entry to bilateral bases. ABDOMEN: Soft, nontender. Bowel sounds are heard. No organomegaly noted. Right radial site, clean and dry, good distal pulse. EXTREMITIES: 2+ left peripheral pulse, patient has a right zgrmi-onr-kuac amputation noted. NEUROLOGIC patient is awake, alert and oriented ?-3. . - Labs CBC & Chem 7: 03/13/18 06:04 03/14/18 05:56 Labs: Abnormal Lab Results - Last 24 Hours (Table) 03/14/18 Range/Units 05:56 BUN 22 H (9-20) mg/dL Creatinine 1.67 H (0.66-1.25) mg/dL Glucose 101 H (74-99) mg/dL Assessment and Plan Plan: Assessment and plan #1 non-Q-wave ME, as well as cardiac catheterization which revealed a chronic total occlusion of the proximal RCA which fills by collaterals from the left coronary system. Mild disease involving the left main coronary artery, normal left circumflex system, mild to moderate disease involving the proximal and mid LAD, medical therapy advised #2 acute on chronic kidney injury #3 systolic congestive heart failure acute on chronic #4 paroxysmal atrial fibrillation #5 history of peripheral arterial disease with prior PCI, status post right sdkso-sfz-nokg amputation #6 coronary artery disease with prior PCI #7 hypertension #8 hyperlipidemia Plan From cardiology's perspective, patient may be able to be discharged home today. We will add Plavix 75 mg daily to the patient's medication regime. Continue aspirin 81 mg daily, Coreg 3.125 mg twice a day, Plavix 75 mg daily, hydralazine 50 mg 3 times a day, nicotine patch, Aldactone 12-1/2 mg daily. Follow-up appointment with Dr. Parnell in the office. DNP note has been reviewed, I agree with a documented findings and plan of care. Patient was seen and examined.
[2018-03-14] MEDS: ALBUTEROL NEBULIZED 2.5 MG/3 ML INHALATION PRN (10:50)
[2018-03-14 11:47] VITALS: BP 137/63; PULSE 60; TEMP 97.3
--- NOTE | 2018-03-14 23:21 | DS ---
DISCHARGE SUMMARY DATE OF ADMISSION: 03/10/2018. DATE OF DISCHARGE: 03/14/2018. FINAL DIAGNOSES: 1. Acute non-Q-wave myocardial infarction with cardiac catheterization showing complete occlusion of the right coronary artery, to be managed medically. 2. Chronic obstructive pulmonary disease is a current smoker. 3. Chronic nicotine dependence, patient is an active cigarette smoker. 4. Left bundle branch block. 5. Coronary artery disease with prior history of stent. 6. Paroxysmal atrial fibrillation, currently in sinus rhythm. 7. Chronic congestive heart failure from systolic dysfunction, ejection fraction 20% from ischemic heart disease. 8. Hyperlipidemia. 9. Essential hypertension. 10.Peripheral artery disease with right above-knee amputation. 11.Automatic implantable cardioverter defibrillator. 12.Chronic kidney disease stage 3 from nephrosclerosis. HOSPITAL COURSE: This patient presented with acute [place]. Cardiac catheterization showed complete occlusion of the RCA with collaterals. A 2D echo shows EF less than 20%. The patient's kidney function remained relatively stable, it was 1.56 on admission and 1.6 on discharge. CONSULTATIONS: 1. Dr. Leahy from Nephrology. 2. Dr. Theodore from Interventional Cardiology. 3. Dr. Oscar Fleming from Cardiology. PHYSICAL EXAMINATION: Temperature 97.3, pulse 50, respirations 16, blood pressure 137/63. Lungs slightly decreased breath sounds. Cardiovascular, 1st and 2nd sounds normal. DISCHARGE MEDICATIONS: 1. Prilosec 20 mg with breakfast. 2. Imdur ER 30 mg a day. 3. Cordarone 200 mg b.i.d. 4. Albuterol 2.5 nebulizer every 4 p.r.n. 5. Bentyl 10 mg p.o. q.i.d. p.r.n. 6. Reglan 5 mg b.i.d. p.r.n. 7. Hydralazine 50 mg p.o. t.i.d. 8. Aspirin 81 mg a day. 9. Coreg 3.125 p.o. b.i.d. 10.Plavix 75 mg a day. 11.Nicotine patch 14. 12.Nitrostat 0.4 sublingual every 5 p.r.n. 13.Aldactone 12.5 p.o. daily. FOLLOWUP: 1. Follow up with Dr. Clark on 03/24/2018. 2. Follow up with Dr. Leahy on 03/27/2018. 3. Follow up with Dr. Tootie Parnell on 03/20/2018. 4. BMP on 03/17/2018. 5. [facility] to follow. MMODL / IJN: [id number] /
== END 2018-03-14 15:30 | disposition home or self-care (01) | DRG 281 ==
LOC: EC 09:13 → 6SEL 10:14 → OBSVTOIN 11:13
PROVIDERS: ADMIT Hospitalist; ATTEND Hospitalist
PROC: 4A023N7 Measurement of Cardiac Sampling and Pressure, Left Heart, Percutaneous Approach (ICD-10-PCS; principal; 2018-03-12 13:40)
PROC: B2151ZZ Fluoroscopy of Left Heart using Low Osmolar Contrast (ICD-10-PCS; principal; 2018-03-12 13:40)
PROC: B2111ZZ Fluoroscopy of Multiple Coronary Arteries using Low Osmolar Contrast (ICD-10-PCS; principal; 2018-03-12 13:40)
DX: I21.4 Non-ST elevation (NSTEMI) myocardial infarction (principal); I13.0 Hypertensive heart and chronic kidney disease with heart failure and stage 1 through stage 4 chronic kidney disease, or unspecified chronic kidney disease; N17.9 Acute kidney failure, unspecified; I50.22 Chronic systolic (congestive) heart failure; E78.5 Hyperlipidemia, unspecified; F03.90 Unspecified dementia, unspecified severity, without behavioral disturbance, psychotic disturbance, mood disturbance, and anxiety; F17.210 Nicotine dependence, cigarettes, uncomplicated; G20 Parkinson's disease; G40.909 Epilepsy, unspecified, not intractable, without status epilepticus; H91.90 Unspecified hearing loss, unspecified ear; I25.10 Atherosclerotic heart disease of native coronary artery without angina pectoris; I25.5 Ischemic cardiomyopathy; I44.7 Left bundle-branch block, unspecified; I48.0 Paroxysmal atrial fibrillation; I73.9 Peripheral vascular disease, unspecified; J44.9 Chronic obstructive pulmonary disease, unspecified; N14.1 Nephropathy induced by other drugs, medicaments and biological substances; N18.3 Chronic kidney disease, stage 3 (moderate); T50.8X5A Adverse effect of diagnostic agents, initial encounter; Z79.82 Long term (current) use of aspirin; Z80.52 Family history of malignant neoplasm of bladder; Z82.0 Family history of epilepsy and other diseases of the nervous system; Z82.49 Family history of ischemic heart disease and other diseases of the circulatory system; Z85.46 Personal history of malignant neoplasm of prostate; Z89.611 Acquired absence of right leg above knee; Z92.21 Personal history of antineoplastic chemotherapy; Z92.3 Personal history of irradiation; Z95.5 Presence of coronary angioplasty implant and graft; Z95.810 Presence of automatic (implantable) cardiac defibrillator; Z79.899 Other long term (current) drug therapy
CPT/HCPCS: 36415; 71046; 71275; 76770; 80048; 80053; 80061; 81003; 82550; 82553; 83690; 83735; 84484; 85025; 85049; 85379; 85610; 85730; 93005; 93306; 93458; 94640; 94760; 96365; 96376; 99291

== ENCOUNTER 2018-11-04 21:38 | Inpatient (IN) | payer MEDICARE, OTHER ==
[2018-11-04] MEDS ORDERED: methylPREDNISolone SOD SUCCI 125 MG/2 ML VIAL IV STA (21:46)
[2018-11-04] MEDS ORDERED: ALBUTEROL NEBULIZED 2.5 MG/3 ML INHALATION STA (21:46)
[2018-11-04] MEDS ORDERED: IPRATROPIUM 0.5 MG/2.5 ML NEBU INHALATION STA (21:46)
--- NOTE | 2018-11-04 21:54 | ED ---
General Adult HPI - General Stated complaint: Difficulty Breathing Time Seen by Provider: 11/04/18 21:46 Source: patient, EMS, RN notes reviewed, old records reviewed Mode of arrival: EMS Limitations: no limitations - History of Present Illness Initial comments: 78-year-old male presenting for evaluation of dyspnea. Patient's symptoms have progressed over the past one month however he states that over the past 2 days they have worsened. He history of atrial fibrillation status post pacemaker defibrillator, history of CAD, history of COPD. He does follow with pulmonology. He's been on inhaled steroids for the past one month without significant improvement. He is not currently on home oxygen. He denies any chest pain. Denies lower extremity pain or swelling. Denies fever or chills. Denies significant cough. - Related Data Home Medications Medication Instructions Recorded Confirmed Isosorbide Mononitrate ER [Imdur] 30 mg PO DAILY 08/31/15 03/10/18 Amiodarone [Cordarone] 200 mg PO BID 10/08/16 03/10/18 Albuterol Nebulized [Ventolin 2.5 mg INHALATION Q4H PRN 03/10/18 03/10/18 Nebulized] Dicyclomine [Bentyl] 10 mg PO QID PRN 03/10/18 03/10/18 Metoclopramide HCl [Reglan] 5 mg PO BID PRN 03/10/18 03/10/18 hydrALAZINE HCL [Apresoline] 50 mg PO TID 03/10/18 03/10/18 Previous Rx's Medication Instructions Recorded Omeprazole [PriLOSEC] 20 mg PO AC-BRKFST #30 01/27/14 Aspirin 81 mg PO DAILY #30 chew 03/14/18 Carvedilol [Coreg] 3.125 mg PO BID-W/MEALS #60 tab 03/14/18 Clopidogrel [Plavix] 75 mg PO DAILY #30 tab 03/14/18 Nicotine 14Mg/24Hr Patch [Habitrol] 1 patch TRANSDERM DAILY #30 patch 03/14/18 Nitroglycerin Sl Tabs [Nitrostat] 0.4 mg SUBLINGUAL Q5M PRN #25 tab 03/14/18 Spironolactone [Aldactone] 12.5 mg PO DAILY #30 tab 03/14/18 Allergies Allergy/AdvReac Type Severity Reaction Status Date / Time milk thistle (Silybum Allergy Severe Anaphylaxis Verified 11/04/18 22:08 marianum) Review of Systems ROS Statement: Those systems with pertinent positive or pertinent negative responses have been documented in the HPI. ROS Other: All systems not noted in ROS Statement are negative. Past Medical History Past Medical History: Atrial Fibrillation, Coronary Artery Disease (CAD), Cancer, Chest Pain / Angina, Heart Failure, COPD, Dementia, Hearing Disorder / Deafness, Hyperlipidemia, Hypertension, Myocardial Infarction (MD), Prostate Disorder, Seizure Disorder, Vascular Disorder Additional Past Medical History / Comment(s): Prostate cancer status post chemo and radiation and posterior resection 1968, newly dx. Parkinsons. Last Myocardial Infarction Date:: unknown History of Any Multi-Drug Resistant Organisms: C-DIFF Date of last positivie culture/infection: August, MDRO Source:: Stool Past Surgical History: AICD, Heart Catheterization With Stent, Prostate Surgery Additional Past Surgical History / Comment(s): Patient states he has had 8 or 9 stents placed in his heart, prostate resection for cancer, right zdtbg-fxc-ifuj amputation for peripheral vascular disease May-2011, Defibrilator placed on 08/22/2015 Past Anesthesia/Blood Transfusion Reactions: No Reported Reaction Additional Past Anesthesia/Blood Transfusion Reaction / Comment(s): Pt has received blood in past without reaction. Date of Last Stent Placement:: unknown Type of Cardiac Device: AICD Device Placement Date:: 08/22/15 Past Psychological History: Bipolar, Depression Smoking Status: Former smoker - Past Family History Father Family Medical History: Myocardial Infarction (MD) Additional Family Medical History / Comment(s): Father at age 56 from a myocardial infarction. Mother Family Medical History: Cancer Additional Family Medical History / Comment(s): Mother at age 74 from bladder cancer with metastases to the bone. Brother(s) Family Medical History: Myocardial Infarction (MD) Additional Family Medical History / Comment(s): Patient had 1 brother that at age 60 from a myocardial infarction Sister(s) Family Medical History: Dementia, Musculoskeletal Disorder, Neurologic Disorder Additional Family Medical History / Comment(s): PARKINSONS General Exam Limitations: no limitations General appearance: alert, in no apparent distress Head exam: Present: atraumatic, normocephalic Eye exam: Present: normal appearance, PERRL ENT exam: Present: normal exam Neck exam: Present: normal inspection. Absent: tenderness, meningismus Respiratory exam: Present: decreased breath sounds, prolonged expiratory. Absent: respiratory distress Cardiovascular Exam: Present: regular rate, normal rhythm GI/Abdominal exam: Present: soft. Absent: distended, tenderness, guarding Extremities exam: Present: other (Right AKA). Absent: pedal edema, joint swelling Neurological exam: Present: alert, oriented X3, CN II-XII intact. Absent: motor sensory deficit Psychiatric exam: Present: normal affect, normal mood Skin exam: Present: warm, dry, intact. Absent: cyanosis, diaphoretic Course Vital Signs 11/04/18 11/04/18 11/04/18 21:40 22:07 22:24 Temperature 98.6 F Pulse Rate 60 55 L 56 L Respiratory 18 Rate Blood Pressure 165/119 O2 Sat by Pulse 97 Oximetry 11/04/18 23:36 Temperature Pulse Rate 68 Respiratory 18 Rate Blood Pressure 159/87 O2 Sat by Pulse 98 Oximetry EKG Findings - EKG Comments: EKG Findings:: EKG: Sinus bradycardia, left axis deviation, left bundle with history of left bundle branch block. Rate of 56, NJ interval 190 QRS duration 182, QTC [address] segment elevation. Medical Decision Making - Medical Decision Making 70-year-old male history COPD, CHF presenting with dyspnea. X-rays obtained, shows bilateral effusions, concern for right middle lobe infiltrate. Patient has normal CBC, creatinine 1.57, mildly elevated troponin 0.41 and elevated BNP of 5800. Suspect combination of COPD and congestive heart failure. Will be admitted for further evaluation and treatment. Placed on IV steroids, albuterol, as well as Lasix IV. Given chest x-ray with concerning right middle lobe infiltrate, patient is started on IV antibiotics. - Lab Data Result diagrams: 11/04/18 21:51 11/04/18 21:51 Lab Results 11/04/18 11/04/18 11/04/18 Range/Units 21:51 21:51 21:51 WBC 7.8 (3.8-10.6) k/uL RBC 4.31 (4.30-5.90) m/uL Hgb 13.8 (13.0-17.5) gm/dL Hct 42.9 (39.0-53.0) % MCV 99.3 (80.0-100.0) fL MCH 31.9 (25.0-35.0) pg MCHC 32.2 (31.0-37.0) g/dL RDW 14.7 (11.5-15.5) % Plt Count 224 (150-450) k/uL Neutrophils % 72 % Lymphocytes % 14 % Monocytes % 8 % Eosinophils % 3 % Basophils % 1 % Neutrophils # 5.6 (1.3-7.7) k/uL Lymphocytes # 1.1 (1.0-4.8) k/uL Monocytes # 0.6 (0-1.0) k/uL Eosinophils # 0.3 (0-0.7) k/uL Basophils # 0.0 (0-0.2) k/uL Macrocytosis Slight PT (9.0-12.0) sec INR (<1.2) APTT (22.0-30.0) sec Sodium 141 (137-145) mmol/L Potassium 4.0 (3.5-5.1) mmol/L Chloride 105 (98-107) mmol/L Carbon Dioxide 29 (22-30) mmol/L Anion Gap 7 mmol/L BUN 23 H (9-20) mg/dL Creatinine 1.57 H (0.66-1.25) mg/dL Est GFR (CKD-EPI)AfAm 48 (>60 ml/min/1.73 sqM) Est GFR (CKD-EPI)NonAf 42 (>60 ml/min/1.73 sqM) Glucose 90 (74-99) mg/dL Calcium 9.2 (8.4-10.2) mg/dL Magnesium 2.0 (1.6-2.3) mg/dL Total Bilirubin 0.6 (0.2-1.3) mg/dL AST 26 (17-59) U/L ALT 33 (21-72) U/L Alkaline Phosphatase 93 (38-126) U/L Troponin I (0.000-0.034) ng/mL NT-Pro-B Natriuret Pep 5890 pg/mL Total Protein 6.6 (6.3-8.2) g/dL Albumin 3.7 (3.5-5.0) g/dL Urine Color Urine Appearance (Clear) Urine pH (5.0-8.0) Ur Specific Magnet (1.001-1.035) Urine Protein (Negative) Urine Glucose (UA) (Negative) Urine Ketones (Negative) Urine Blood (Negative) Urine Nitrite (Negative) Urine Bilirubin (Negative) Urine Urobilinogen (<2.0) mg/dL Ur Leukocyte Esterase (Negative) 11/04/18 11/04/18 11/04/18 Range/Units 21:51 21:51 23:17 WBC (3.8-10.6) k/uL RBC (4.30-5.90) m/uL Hgb (13.0-17.5) gm/dL Hct (39.0-53.0) % MCV (80.0-100.0) fL MCH (25.0-35.0) pg MCHC (31.0-37.0) g/dL RDW (11.5-15.5) % Plt Count (150-450) k/uL Neutrophils % % Lymphocytes % % Monocytes % % Eosinophils % % Basophils % % Neutrophils # (1.3-7.7) k/uL Lymphocytes # (1.0-4.8) k/uL Monocytes # (0-1.0) k/uL Eosinophils # (0-0.7) k/uL Basophils # (0-0.2) k/uL Macrocytosis PT 10.5 (9.0-12.0) sec INR 1.0 (<1.2) APTT 23.1 (22.0-30.0) sec Sodium (137-145) mmol/L Potassium (3.5-5.1) mmol/L Chloride (98-107) mmol/L Carbon Dioxide (22-30) mmol/L Anion Gap mmol/L BUN (9-20) mg/dL Creatinine (0.66-1.25) mg/dL Est GFR (CKD-EPI)AfAm (>60 ml/min/1.73 sqM) Est GFR (CKD-EPI)NonAf (>60 ml/min/1.73 sqM) Glucose (74-99) mg/dL Calcium (8.4-10.2) mg/dL Magnesium (1.6-2.3) mg/dL Total Bilirubin (0.2-1.3) mg/dL AST (17-59) U/L ALT (21-72) U/L Alkaline Phosphatase (38-126) U/L Troponin I 0.041 H* (0.000-0.034) ng/mL NT-Pro-B Natriuret Pep pg/mL Total Protein (6.3-8.2) g/dL Albumin (3.5-5.0) g/dL Urine Color Yellow Urine Appearance Clear (Clear) Urine pH 6.0 (5.0-8.0) Ur Specific Magnet 1.018 (1.001-1.035) Urine Protein Negative (Negative) Urine Glucose (UA) Negative (Negative) Urine Ketones Negative (Negative) Urine Blood Negative (Negative) Urine Nitrite Negative (Negative) Urine Bilirubin Negative (Negative) Urine Urobilinogen <2.0 (<2.0) mg/dL Ur Leukocyte Esterase Negative (Negative) Disposition Clinical Impression: Ischemic cardiomyopathy, Acute exacerbation of chronic obstructive airways disease, Congestive heart failure Disposition: ADMITTED IP TO THIS [facility] Condition: Stable Is patient prescribed a controlled substance at d/c from ED?: No Referrals: Mark Clark MD [Primary Care Provider] - 1-2 days Decision to Admit Reason: Admit from EC Decision Date: 11/04/18 Decision Time: 23:55
[2018-11-04 22:02] LABS: Basophils % (A) 1 %; Eosinophils # (A) 0.3 k/uL (0-0.7); Eosinophils % (A) 3 %; HCT 42.9 % (39.0-53.0); HGB 13.8 gm/dL (13.0-17.5); Lymphocytes # (A) 1.1 k/uL (1.0-4.8); Lymphocytes % (A) 14 %; MCH 31.9 pg (25.0-35.0); MCHC 32.2 g/dL (31.0-37.0); MCV 99.3 fL (80.0-100.0); Macrocytosis Slight; Mean Platelet Volume 7.2; Monocytes # (A) 0.6 k/uL (0-1.0); Monocytes % (A) 8 %; Neutrophils # (A) 5.6 k/uL (1.3-7.7); Neutrophils % (A) 72 %; Platelet Count 224 k/uL (150-450); RBC 4.31 m/uL (4.30-5.90); RDW 14.7 % (11.5-15.5); WBC 7.8 k/uL (3.8-10.6)
[2018-11-04 22:11] LABS: Albumin 3.7 g/dL (3.5-5.0); Calcium 9.2 mg/dL (8.4-10.2); Partial Thromboplastin Time 23.1 sec (22.0-30.0); Prothrombin Time 10.5 sec (9.0-12.0); Total Bilirubin 0.6 mg/dL (0.2-1.3); Total Protein 6.6 g/dL (6.3-8.2)
--- NOTE | 2018-11-04 23:06 | XR ---
EXAM: XR Chest, 2 Views CLINICAL HISTORY: Reason: difficulty breathing TECHNIQUE: Frontal and lateral views of the chest. COMPARISON: Chest x-ray 03/10/2018 FINDINGS: Lungs: Right middle lobe opacity suggesting mild infiltrate or partial atelectasis. No pulmonary consolidations. Pleural space: Minimal bilateral pleural effusions. No evidence of pneumothorax. Heart: Heart size upper limits of normal. Mediastinum: Mediastinal structures are unremarkable. Bones/joints: Imaged bony thorax is unremarkable. Tubes, lines and devices: Cardiac pacer has lead extending to region of right ventricle. IMPRESSION: Heart size upper limits of normal. No evidence of overt congestive failure or pulmonary edema. Mild right middle lobe infiltrate or partial atelectasis. Minimal bilateral pleural effusions.
--- NOTE | 2018-11-04 23:12 | XR ---
EXAM: XR Abdomen, 1 View CLINICAL HISTORY: ITS.REASON XR Reason: Pain TECHNIQUE: Frontal upright view of the abdomen/pelvis. COMPARISON: Chest x-ray 11/04/2018. Abdominal x-rays 12/13/2017 FINDINGS: Intraperitoneal space: No evidence of bowel obstruction or pneumoperitoneum. Prominent fecal debris in the right and transverse colon. Postsurgical changes in the lower pelvis with multiple metallic clips. Gastrointestinal tract: See above. Bones/joints: Mild degenerative changes about both hips. Vasculature: Bilateral pelvic calcifications and evidence of bilateral iliac arterial stents. Other findings: Overall, no significant changes compared to prior examination of 12/13/2017. IMPRESSION: No radiograph evidence of acute abdominal disease or bowel obstruction.
[2018-11-04 23:25] LABS: Appearance,Urine Clear (Clear); Bilirubin,Urine Negative (Negative); Blood,Urine Negative (Negative); Color,Urine Yellow; Glucose,Urine (UA) Negative (Negative); Ketones,Urine Negative (Negative); Leukocyte Esterase,Urine Negative (Negative); Nitrite,Urine Negative (Negative); Protein,Urine Negative (Negative); Specific Gravity,Urine 1.018 (1.001-1.035); Urobilinogen,Urine <2.0 mg/dL (<2.0)
[2018-11-04] MEDS ORDERED: FUROSEMIDE 10 MG/ML 4 ML VIAL IV STA (23:31)
[2018-11-04] MEDS ORDERED: ASPIRIN 325 MG TAB PO STA (23:31)
[2018-11-04] MEDS ORDERED: IPRATROPIUM-ALBUTEROL 3 ML NEB INHALATION PRN (23:45)
[2018-11-04] MEDS ORDERED: AZITHROMYCIN 500 MG in SODIUM CHLORIDE 0.9% 250 ML IVPB STA (23:56)
[2018-11-04] MEDS ORDERED: cefTRIAXone IN SWFI 1,000 MG/10 ML SYRINGE IVP STA (23:56)
[2018-11-05] MEDS: methylPREDNISolone SOD SUCCI 125 MG/2 ML VIAL IV SCH ×4 (00:14→17:33)
[2018-11-05] MEDS: IPRATROPIUM-ALBUTEROL 3 ML NEB INHALATION SCH ×6 (07:10→23:43)
[2018-11-05] MEDS: FUROSEMIDE 10 MG/ML 4 ML VIAL IV SCH ×2 (08:45→22:11)
[2018-11-05] MEDS ORDERED: ALBUTEROL NEBULIZED 2.5 MG/3 ML INHALATION PRN (10:39)
[2018-11-05] MEDS ORDERED: NITROGLYCERIN SL TABS 0.4 MG TAB SUBLINGUAL PRN (10:39)
[2018-11-05] MEDS ORDERED: ALBUTEROL INHALER 60 PUFF/8 GM INHALER INHALATION PRN (10:39)
[2018-11-05] MEDS ORDERED: MAGNESIUM HYDROXIDE 2,400 MG/10 ML CUP PO PRN (10:45)
[2018-11-05 11:45] LABS: Glucose,Whole Blood 139 mg/dL (75-99)
[2018-11-05] MEDS: INSULIN ASPART (NovoLOG) 100 UNIT/ML VIAL SQ SCH ×3 (11:45→22:12)
[2018-11-05] MEDS: CLOPIDOGREL 75 MG TAB PO SCH (12:06)
[2018-11-05] MEDS: ISOSORBIDE MONONITRATE ER 30 MG TAB.ER.24H PO SCH (12:07)
[2018-11-05] MEDS: AMIODARONE 200 MG TAB PO SCH (12:07)
[2018-11-05] MEDS: CARVEDILOL 3.125 MG TAB PO SCH ×2 (12:07→17:35)
[2018-11-05] MEDS: LEVOTHYROXINE 25 MCG TAB PO SCH (12:07)
[2018-11-05] MEDS: PANTOPRAZOLE 40 MG TABLET PO SCH (12:07)
[2018-11-05] MEDS: SPIRONOLACTONE 25 MG TAB PO SCH (12:07)
[2018-11-05] MEDS: hydrALAZINE HCL 50 MG TAB PO SCH ×2 (16:31→22:11)
[2018-11-05 16:38] LABS: Glucose,Whole Blood 164 mg/dL (75-99)
[2018-11-05] MEDS: SYMBICORT 160-4.5 MCG INHALER INHALATION SCH (19:32)
[2018-11-05] MEDS: ATORVASTATIN 20 MG TAB PO SCH (22:11)
[2018-11-05] MEDS: HYOSCYAMINE SULFATE 0.375 MG TAB.ER.12H PO SCH (22:12)
--- NOTE | 2018-11-05 23:17 | HP ---
HISTORY AND PHYSICAL DATE OF ADMISSION: 11/04/2018 DATE OF SERVICE: 11/05/2018 PRESENTING COMPLAINT: Short of breath. HISTORY OF PRESENTING COMPLAINT: This is a pleasant 78-year-old patient of Dr. Clark whose chronic stable medical conditions include coronary artery disease, left bundle branch block, coronary artery disease with stent, paroxysmal atrial fibrillation, chronic congestive heart failure, EF 20%, hyperlipidemia, hypertension, peripheral arterial disease with right above-knee amputation, AICD, chronic kidney disease, stage III, from nephrosclerosis. Patient presented with increasing shortness of breath for 2 days, slight wheezing, some cough. Appetite is plus/minus. No fever or chills. He has maybe some orthopnea. The patient stopped smoking 7 weeks ago. Does feel tired and rundown. REVIEW OF SYSTEMS: CONSTITUTIONAL: Tired. HEENT: None. RESPIRATORY: As above. CARDIOVASCULAR: As above. GASTROINTESTINAL: None. GENITOURINARY: None. MUSCULOSKELETAL: Some pain in the joints. DERMATOLOGICAL: None. HEMATOLOGICAL: None. LYMPHATICS: None. PSYCHIATRY: Anxiety. NEUROLOGICAL: None. PAST MEDICAL HISTORY: 1. Coronary artery disease with cardiac cath showing complete occlusion of the RCA. 2. COPD. 3. Left bundle branch block. 4. Coronary artery disease with stent. 5. Paroxysmal atrial fibrillation. 6. CHF with EF 20%. 7. Hyperlipidemia. 8. Hypertension. 9. Peripheral arterial disease with right above-knee amputation. 10.AICD. 11.Chronic kidney disease, stage III. 12.Seizure in 2011. 13.Insomnia. 14.Hypothyroid. 15.Prostate cancer, status post surgery and chemo radiation. 16.Seizure disorder. 17.Some forgetfulness. PAST SURGICAL HISTORY: 1. AICD in 2015. 2. Cardiac cath with stent. The patient has had about 8 or 9 stents in the heart. 3. Prostatectomy for cancer. 4. Right above-knee amputation for peripheral arterial disease in May 2011. 5. Left lower extremity skin graft due to hatfield. PSYCH HISTORY: Bipolar disorder. SOCIAL HISTORY: Lives alone. Does use a cane to get about. He does drive. The patient had been smoking for close to 60 years about half a pack a day. He states he has not smoked since 7 weeks ago. He had alcohol issues in the past. Father of a heart attack at the age of 56. HOME MEDICATIONS: 1. Aldactone 12.5 mg p.o. daily. 2. Prilosec 20 mg p.o. with breakfast. 3. Nitrostat 0.4 sublingually q.5 p.r.n. 4. Synthroid 25 mcg daily. 5. Levbid 0.375 mg p.o. q.12. 6. Hydralazine 50 mg p.o. t.i.d. 7. Imdur ER 30 mg p.o. daily. 8. Lasix 20 mg p.o. daily. 9. Plavix 75 mg p.o. daily. 10.Coreg 3.125 p.o. b.i.d. with meals. 11.Lipitor 20 mg p.o. daily. 12.Aspirin 81 mg p.o. daily. 13.Amiodarone 200 mg p.o. daily. 14.Ventolin HFA 2 puffs q.4 p.r.n. 15.Advair HFA 230/21 two puffs b.i.d. 16.Ventolin nebulizer 2.5 q.4 p.r.n. ALLERGIES: MILK THISTLE. PHYSICAL EXAMINATION: VITAL SIGNS ON PRESENTATION: Temperature 98.6, pulse 60, respiration 18, blood pressure 165/119, pulse ox 97% on 2 L. GENERAL APPEARANCE: Sitting up, tired, short of breath. EYES: Pupils equal. Conjunctivae normal. HEENT: External appearance of nose and ears normal. Oral cavity normal. NECK: JVD unable to assess. Mass not palpable. RESPIRATORY: Effort increased. LUNGS: Diminished breath sounds. Prolonged expiration and wheezing. Questionably some crackles. CARDIOVASCULAR: First and second sounds normal. No edema. ABDOMEN: Distended. Soft. Liver and spleen not palpable. LYMPHATIC: No lymph node palpable in neck or axillae. PSYCHIATRY: Alert and oriented x3. Mood and affect anxious-appearing. NEUROLOGICAL: Pupils equal. Cranial nerves grossly intact. Power and sensation grossly intact. EXTREMITIES: Patient has prosthesis on the right lower extremity above the knee. INVESTIGATIONS: White count 7.8, hemoglobin 13.8, platelets 224. Potassium 4.0, BUN 23, creatinine 1.57. Patient's BUN and creatinine were 22 and 1.67 in March of 2018. Troponin 0.041. Chest x-ray film, personally reviewed by me, shows cardiomegaly and some fluid in the horizontal fissure. No obvious infiltrate. EKG tracing, personally reviewed by me, shows left bundle branch block. ASSESSMENT: 1. Acute chronic obstructive pulmonary disease exacerbation in an ex-smoker. 2. Acute on chronic congestive heart failure exacerbation from systolic dysfunction, ejection fraction 20%, from ischemic heart disease. 3. Coronary artery disease with multiple stents in the past. 4. Left bundle branch block. 5. Paroxysmal atrial fibrillation, currently in sinus rhythm. 6. Hyperlipidemia. 7. Essential hypertension. 8. Peripheral arterial disease with right above-knee amputation with prosthesis. 9. Automated implantable cardioverter defibrillator. 10.Chronic kidney disease, stage III, from nephrosclerosis. PLAN: The patient was put on bronchodilators, IV Solu-Medrol. Will also give patient IV Lasix. Care was discussed with the patient. Questions were answered. Other home medications are resumed. MMODL / HARJINDERN: [id number] /
[2018-11-05] MEDS: methylPREDNISolone SOD SUCCI 40 MG/ML 1 ML VIAL IV SCH (23:44)
[2018-11-06] MEDS: IPRATROPIUM-ALBUTEROL 3 ML NEB INHALATION SCH ×6 (03:45→22:54)
[2018-11-06] MEDS: PANTOPRAZOLE 40 MG TABLET PO SCH (06:49)
[2018-11-06] MEDS: CARVEDILOL 3.125 MG TAB PO SCH ×2 (06:49→17:05)
[2018-11-06] MEDS: LEVOTHYROXINE 25 MCG TAB PO SCH (06:49)
[2018-11-06 06:51] LABS: Glucose,Whole Blood 195 mg/dL (75-99)
[2018-11-06] MEDS: INSULIN ASPART (NovoLOG) 100 UNIT/ML VIAL SQ SCH ×3 (06:53→17:06)
[2018-11-06 07:04] LABS: Calcium 9.2 mg/dL (8.4-10.2); Potassium 3.6 mmol/L (3.5-5.1)
[2018-11-06] MEDS: methylPREDNISolone SOD SUCCI 40 MG/ML 1 ML VIAL IV SCH ×2 (07:50→17:05)
[2018-11-06] MEDS: ASPIRIN 81 MG PO SCH (07:51)
[2018-11-06] MEDS: AMIODARONE 200 MG TAB PO SCH (07:51)
[2018-11-06] MEDS: ISOSORBIDE MONONITRATE ER 30 MG TAB.ER.24H PO SCH (07:51)
[2018-11-06] MEDS: hydrALAZINE HCL 50 MG TAB PO SCH ×3 (07:51→21:42)
[2018-11-06] MEDS: CLOPIDOGREL 75 MG TAB PO SCH (07:51)
[2018-11-06] MEDS: SPIRONOLACTONE 25 MG TAB PO SCH (07:51)
[2018-11-06] MEDS: HYOSCYAMINE SULFATE 0.375 MG TAB.ER.12H PO SCH ×2 (07:52→21:30)
[2018-11-06] MEDS: FUROSEMIDE 10 MG/ML 4 ML VIAL IV SCH ×2 (07:52→21:41)
[2018-11-06] MEDS: SYMBICORT 160-4.5 MCG INHALER INHALATION SCH ×2 (08:18→20:42)
[2018-11-06 09:53] VITALS: BMI 23.8
[2018-11-06 11:46] LABS: Glucose,Whole Blood 100 mg/dL (75-99)
[2018-11-06 16:44] LABS: Glucose,Whole Blood 150 mg/dL (75-99)
[2018-11-06 20:58] LABS: Glucose,Whole Blood 126 mg/dL (75-99)
[2018-11-06] MEDS: DICYCLOMINE 10 MG CAP PO PRN (21:42)
[2018-11-06] MEDS: ATORVASTATIN 20 MG TAB PO SCH (21:42)
[2018-11-07] MEDS: methylPREDNISolone SOD SUCCI 40 MG/ML 1 ML VIAL IV SCH ×4 (00:15→23:25)
[2018-11-07] MEDS: IPRATROPIUM-ALBUTEROL 3 ML NEB INHALATION SCH ×6 (01:57→23:25)
[2018-11-07] MEDS: INSULIN ASPART (NovoLOG) 100 UNIT/ML VIAL SQ SCH ×5 (03:37→21:02)
--- NOTE | 2018-11-07 05:58 | PN ---
PROGRESS NOTE DATE OF SERVICE: 11/06/2018 PRESENTING COMPLAINT: Short of breath. INTERVAL HISTORY: Patient admitted with acute COPD exacerbation, acute CHF exacerbation. Feeling a bit better. Still a bit short of breath. Did tolerate some diet. Sitting up. REVIEW OF SYSTEMS: Done for constitutional, cardiovascular, GI, pulmonary; relevant findings as above. CURRENT MEDICATIONS: Current medications are reviewed that include DuoNeb, IV Solu-Medrol, IV Lasix. PHYSICAL EXAMINATION: On examination, temperature 97.1, pulse 76, respiration 16, blood pressure 125/66, pulse ox 94% on 2 L. GENERAL APPEARANCE: Sitting up, short of breath. EYES: Pupils equal. Conjunctivae normal. NECK: JVD unable to assess. Mass not palpable. RESPIRATORY: Effort increased. LUNGS: Decreased breath sounds, prolonged expiration, wheezing. CARDIOVASCULAR: First and second sounds normal. ABDOMEN: Distended, soft. Liver and spleen not palpable. PSYCHIATRY: Alert and oriented x3. Mood and affect normal. INVESTIGATIONS: Potassium 3.6. BUN 37, creatinine 1.66. ASSESSMENT: 1. Acute chronic obstructive pulmonary disease exacerbation in an ex-smoker. 2. Acute on chronic congestive heart failure exacerbation from systolic dysfunction, ejection fraction 20% from underlying ischemic heart disease. 3. Coronary artery disease with multiple stents in the past. 4. Left bundle branch block. 5. Paroxysmal atrial fibrillation, currently in sinus rhythm. 6. Hyperlipidemia. 7. Essential hypertension. 8. Peripheral arterial disease with right above-knee amputation with prosthesis. 9. Automated implantable cardioverter-defibrillator. 10.Chronic kidney disease stage 3 from nephrosclerosis. PLAN: Continue current medication and treatment plan. Care was discussed with the patient. Repeat labs in the morning. MMODL / IJN: [id number] /
[2018-11-07 06:02] LABS: Glucose,Whole Blood 134 mg/dL (75-99)
[2018-11-07 06:30] LABS: Basophils % (A) 0 %; Eosinophils % (A) 0 %; HCT 39.2 % (39.0-53.0); HGB 12.9 gm/dL (13.0-17.5); Lymphocytes # (A) 0.3 k/uL (1.0-4.8); Lymphocytes % (A) 2 %; MCH 32.2 pg (25.0-35.0); MCHC 32.8 g/dL (31.0-37.0); Macrocytosis Slight; Mean Platelet Volume 6.6; Monocytes # (A) 0.5 k/uL (0-1.0); Monocytes % (A) 3 %; Neutrophils # (A) 13.9 k/uL (1.3-7.7); Neutrophils % (A) 94 %; Platelet Count 217 k/uL (150-450); RDW 14.8 % (11.5-15.5); WBC 14.8 k/uL (3.8-10.6)
[2018-11-07 06:41] LABS: Calcium 9.2 mg/dL (8.4-10.2); Potassium 3.8 mmol/L (3.5-5.1)
[2018-11-07] MEDS: PANTOPRAZOLE 40 MG TABLET PO SCH (06:46)
[2018-11-07] MEDS: CARVEDILOL 3.125 MG TAB PO SCH ×2 (06:46→16:54)
[2018-11-07] MEDS: LEVOTHYROXINE 25 MCG TAB PO SCH (06:46)
--- NOTE | 2018-11-07 07:36 | XR ---
EXAMINATION TYPE: XR chest 2V DATE OF EXAM: 11/07/2018 COMPARISON: 11/04/2018 INDICATION: CHF TECHNIQUE: Frontal and lateral views of the chest are obtained. FINDINGS: The heart size is normal. The pulmonary vasculature is normal. The lungs are clear. Pacemaker overlies left chest. IMPRESSION: 1. No acute pulmonary process.
[2018-11-07] MEDS: SYMBICORT 160-4.5 MCG INHALER INHALATION SCH ×2 (08:06→19:21)
--- NOTE | 2018-11-07 08:44 | P.CRDCN ---
History of Present Illness Consult date: 11/07/18 Chief complaint: Shortness of breath History of present illness: This is a 78-year-old gentleman with a past medical history significant for vinny nary artery disease, ischemic cardiomyopathy with a known ejection fraction of 20% based on echocardiogram was performed in 2018, status post AICD, paroxysmal atrial fibrillation, as well as multiple comorbid conditions, including advanced chronic kidney disease, presented to the hospital complaining of shortness of breath. The patient stated that he was in his usual state of health until about 3 days ago when he started experiencing progressive exertional dyspnea with orthopnea as well. He did not have any lower extremities edema. He stated that he did not gain weight. No symptoms of chest pain or chest discomfort but he did have abdominal discomfort and epigastric discomfort and he continues to have epigastric discomfort right now. On physical examination he does have epigastric tenderness. The abdominal x-ray in the emergency room did not show any evidence of acute abdomen. We get involved in the care of the patient for further evaluation and management of CHF. Currently the patient is on Lasix IV at 40 mg twice a day. The chest x-ray when he presented to the hospital did not show any acute abnormalities but the BNP came in to be severely elevated. The troponin came in to be mildly elevated as well. The patient underwent a heart catheterization in 2018 and he was found to have chronic total occlusion of the right coronary artery which was collateralized from the left coronary system. The left coronary system has mild disease only. This admission the EKG showed sinus rhythm with L BBB. Past Medical History Past Medical History: Atrial Fibrillation, Coronary Artery Disease (CAD), Cancer, Chest Pain / Angina, Heart Failure, COPD, Dementia, GERD/Reflux, GI Bleed, Hearing Disorder / Deafness, Hyperlipidemia, Hypertension, Memory Impairment, Myocardial Infarction ([place]), Musculoskeletal Disorder, Neurologic Disorder, Pneumonia, Prostate Disorder, Renal Disease, Seizure Disorder, Vascular Disorder Additional Past Medical History / Comment(s): Prostate cancer status post surgery/chemo and radiation, paroxysmal Afib, ischemic cardiomyopathy, bronchitis, PAD, chronic CHF, mild short term memory issues, bilateral CADDO/aides, CKD stage III, lower GI bleed, colitis, colon polyps-benign, anemia, parkinson's disease, insomnia, sinus problems, last seizure in 2011. Last Myocardial Infarction Date:: 03/10/18 History of Any Multi-Drug Resistant Organisms: C-DIFF Date of last positivie culture/infection: August, MDRO Source:: Stool Past Surgical History: AICD, Heart Catheterization, Heart Catheterization With Stent, Prostate Surgery Additional Past Surgical History / Comment(s): Patient states he has had 8 or 9 stents placed in his heart, prostatectomy for cancer, right [id number] amputation for peripheral vascular disease May-2011, AICD placed on 08/22/2015, DFTs, L lower leg skin grafts d/t hatfield, colonoscopy. Past Anesthesia/Blood Transfusion Reactions: No Reported Reaction Additional Past Anesthesia/Blood Transfusion Reaction / Comment(s): Pt has received blood in past without reaction. Date of Last Stent Placement:: unknown Type of Cardiac Device: AICD Device Placement Date:: 08/22/15 Smoking Status: Former smoker - Past Family History Father Family Medical History: Myocardial Infarction ([place]) Additional Family Medical History / Comment(s): Father at age 56 from a myocardial infarction. Mother Family Medical History: Cancer Additional Family Medical History / Comment(s): Mother at age 74 from bladder cancer with metastases to the bone. Brother(s) Family Medical History: Myocardial Infarction ([place]) Additional Family Medical History / Comment(s): Patient had 1 brother that at age 60 from a myocardial infarction Sister(s) Family Medical History: Dementia, Musculoskeletal Disorder, Neurologic Disorder Additional Family Medical History / Comment(s): PARKINSONS Medications and Allergies Home Medications Medication Instructions Recorded Confirmed Type Omeprazole [PriLOSEC] 20 mg PO AC-BRKFST #30 01/27/14 11/05/18 Rx Isosorbide Mononitrate ER [Imdur] 30 mg PO DAILY 08/31/15 11/05/18 History Amiodarone [Cordarone] 200 mg PO DAILY 10/08/16 11/05/18 History Albuterol Nebulized [Ventolin 2.5 mg INHALATION RT-Q4H PRN 03/10/18 11/05/18 History Nebulized] hydrALAZINE HCL [Apresoline] 50 mg PO TID 03/10/18 11/05/18 History Carvedilol [Coreg] 3.125 mg PO BID-W/MEALS #60 tab 03/14/18 11/05/18 Rx Clopidogrel [Plavix] 75 mg PO DAILY #30 tab 03/14/18 11/05/18 Rx Nitroglycerin Sl Tabs [Nitrostat] 0.4 mg SUBLINGUAL Q5M PRN #25 tab 03/14/18 11/05/18 Rx Spironolactone [Aldactone] 12.5 mg PO DAILY #30 tab 03/14/18 11/05/18 Rx Albuterol Inhaler [Ventolin Hfa 2 puff INHALATION RT-Q4H PRN 11/05/18 11/05/18 History Inhaler] Aspirin EC [Ecotrin Low Dose] 81 mg PO DAILY 11/05/18 11/05/18 History Atorvastatin [Lipitor] 20 mg PO DAILY 11/05/18 11/05/18 History Fluticasone/Salmeterol [Advair Hfa 2 puff INHALATION RT-BID 11/05/18 11/05/18 History 230-21 Mcg Inhaler] Furosemide [Lasix] 20 mg PO DAILY 11/05/18 11/05/18 History Hyoscyamine Sulfate [Levbid] 0.375 mg PO Q12HR 11/05/18 11/05/18 History Levothyroxine Sodium [Synthroid] 25 mcg PO DAILY 11/05/18 11/05/18 History Allergies Allergy/AdvReac Type Severity Reaction Status Date / Time milk thistle (Silybum Allergy Severe Anaphylaxis Verified 11/04/18 22:08 marianum) Physical Exam Vitals: Vital Signs Temp Pulse Resp BP Pulse Ox 11/07/18 04:00 98.1 F 67 18 124/78 98 11/07/18 00:00 98.1 F 69 18 155/72 94 L 11/06/18 19:48 98.1 F 80 18 152/89 96 11/06/18 16:00 98.0 F 71 18 133/78 97 11/06/18 11:36 97.1 F L 76 16 125/66 94 L 11/06/18 10:40 16 Intake and Output 11/06/18 11/07/18 11/07/18 22:59 06:59 14:59 Intake Total 240 236 Output Total 150 950 Balance 90 -950 236 Intake: Oral 240 236 Output: Urine 150 950 Other: Voiding Method Urinal Urinal # Voids 1 1 Weight 67 kg - Constitutional General appearance: no acute distress - Respiratory Respiratory: bilateral: CTA - Cardiovascular Rhythm: regular Heart sounds: normal: S1 Abnormal Heart Sounds: systolic murmur Results 11/07/18 05:44 11/07/18 05:44 CBC 11/07/18 Range/Units 05:44 WBC 14.8 H (3.8-10.6) k/uL RBC 4.00 L (4.30-5.90) m/uL Hgb 12.9 L (13.0-17.5) gm/dL Hct 39.2 (39.0-53.0) % Plt Count 217 (150-450) k/uL Comprehensive Metabolic Panel 11/07/18 Range/Units 05:44 Sodium 138 (137-145) mmol/L Potassium 3.8 (3.5-5.1) mmol/L Chloride 98 (98-107) mmol/L Carbon Dioxide 34 H (22-30) mmol/L BUN 48 H (9-20) mg/dL Creatinine 1.72 H (0.66-1.25) mg/dL Glucose 124 H (74-99) mg/dL Calcium 9.2 (8.4-10.2) mg/dL Current Medications Generic Name Dose Route Start Last Admin Trade Name Freq PRN Reason Stop Dose Admin Albuterol Sulfate 2.5 mg 11/05/18 10:39 Ventolin Nebulized INHALATION RT-Q4H PRN Shortness Of Breath Albuterol/Ipratropium 3 ml 11/04/18 23:45 Duoneb 0.5 Mg-3 Mg/3 Ml Soln INHALATION RT-Q4H PRN Shortness Of Breath Or Wheezing Albuterol/Ipratropium 3 ml 11/05/18 20:15 11/07/18 08:06 Duoneb 0.5 Mg-3 Mg/3 Ml Soln INHALATION Not Given RT-Q4H GUIDO Amiodarone HCl 200 mg 11/05/18 10:45 11/06/18 07:51 Cordarone PO 200 mg DAILY GUIDO Administration Aspirin 81 mg 11/06/18 09:00 11/06/18 07:51 Aspirin PO 81 mg DAILY GUIDO Administration Atorvastatin Calcium 20 mg 11/05/18 21:00 11/06/18 21:42 Lipitor PO 20 mg HS GUIDO Administration Budesonide/Formoterol Fumarate 2 puff 11/05/18 20:00 11/07/18 08:06 Symbicort 160-4.5 Mcg Inhaler INHALATION 2 puff RT-BID [facility] Administration Carvedilol 3.125 mg 11/05/18 10:41 11/07/18 06:46 Coreg PO 3.125 mg BID-W/MEALS [facility] Administration Clopidogrel Bisulfate 75 mg 11/05/18 10:45 11/06/18 07:51 Plavix PO 75 mg DAILY [facility] Administration Dicyclomine HCl 10 mg 11/06/18 20:06 11/06/18 21:42 Bentyl PO 10 mg QID PRN Administration Dyspepsia Furosemide 40 mg 11/05/18 09:00 11/06/18 21:41 Lasix IV 40 mg Q12HR [facility] Administration Hydralazine HCl 50 mg 11/05/18 16:00 11/06/18 21:42 Apresoline PO 50 mg TID [facility] Administration Hyoscyamine 0.375 mg 11/05/18 21:00 11/06/18 21:30 Levbid PO Not Given Q12HR [facility] Insulin Aspart 0 unit 11/05/18 12:30 11/07/18 06:46 Novolog SQ 1 unit ACHS [facility] Administration Protocol Isosorbide Mononitrate 30 mg 11/05/18 10:45 11/06/18 07:51 Imdur PO 30 mg DAILY [facility] Administration Levothyroxine Sodium 25 mcg 11/05/18 10:42 11/07/18 06:46 Synthroid PO 25 mcg 0630 [facility] Administration Magnesium Hydroxide 2,400 mg 11/05/18 10:45 11/06/18 17:05 Milk Of Magnesia PO 2,400 mg DAILY PRN Administration Constipation Methylprednisolone Sodium Succinate 40 mg 11/06/18 00:00 11/07/18 00:15 Solu-Medrol IV Not Given Q8HR [facility] Nitroglycerin 0.4 mg 11/05/18 10:39 Nitrostat SUBLINGUAL Q5M PRN Chest Pain Pantoprazole Sodium 40 mg 11/05/18 10:45 11/07/18 06:46 Protonix PO 40 mg AC-BRKFST [facility] Administration Spironolactone 12.5 mg 11/05/18 10:45 11/06/18 07:51 Aldactone PO 12.5 mg DAILY [facility] Administration Intake and Output 11/06/18 11/07/18 11/07/18 22:59 06:59 14:59 Intake Total 240 236 Output Total 150 950 Balance 90 -950 236 Intake: Oral 240 236 Output: Urine 150 950 Other: Voiding Method Urinal Urinal # Voids 1 1 Weight 67 kg 11/07/18 05:44 11/07/18 05:44 Assessment and Plan Assessment: Assessment #1 acute exacerbation of congestive heart failure secondary to systolic dysfunction #2 acute exacerbation of chronic obstructive pulmonary disease #3 severe ischemic cardiomyopathy with EF of 20% #4 status post AICD #5 known CAD with chronic total occlusion of the RCA #6 abdominal discomfort of unknown etiology #7 paroxysmal atrial fibrillation. Currently the patient is in normal sinus mechanism #8 severe peripheral arterial disease. Plan #1 currently the patient is on management for both COPD as well as CHF #2 continue the Lasix IV with the current dose which is 40 mg twice a day #3 continue monitor the kidney function and electrolytes #4 obtain an echocardiogram was Doppler #5 I would suggest getting a computed tomography scan of the abdomen for this gentleman regarding the abdominal discomfort #6 follow-up with him. Thank you for allowing us participate in his care
[2018-11-07] MEDS: hydrALAZINE HCL 50 MG TAB PO SCH ×3 (09:00→21:02)
[2018-11-07] MEDS: CLOPIDOGREL 75 MG TAB PO SCH (09:00)
[2018-11-07] MEDS: ISOSORBIDE MONONITRATE ER 30 MG TAB.ER.24H PO SCH (09:01)
[2018-11-07] MEDS: ASPIRIN 81 MG PO SCH (09:01)
[2018-11-07] MEDS: AMIODARONE 200 MG TAB PO SCH (09:01)
[2018-11-07] MEDS: DICYCLOMINE 10 MG CAP PO PRN (09:01)
[2018-11-07] MEDS: HYOSCYAMINE SULFATE 0.375 MG TAB.ER.12H PO SCH ×2 (09:01→21:02)
[2018-11-07] MEDS: SPIRONOLACTONE 25 MG TAB PO SCH (09:02)
[2018-11-07] MEDS: FUROSEMIDE 10 MG/ML 4 ML VIAL IV SCH (09:15)
--- NOTE | 2018-11-07 10:44 | ECHOF ---
Referral Reason:CHF MEASUREMENTS -------- HEIGHT: 170.2 cm WEIGHT: 66.7 kg BP: 132/69 RVIDd: 4.4 cm (< 3.3) IVSd: 1.7 cm (0.6 - 1.1) LVIDd: 5.4 cm (3.9 - 5.3) LVPWd: 1.6 cm (0.6 - 1.1) IVSs: 1.6 cm LVIDs: 5.1 cm LVPWs: 2.1 cm LAESV Index (A-L): 52.81 ml/m Ao Diam: 3.5 cm (2.0 - 3.7) AV Cusp: 2.2 cm (1.5 - 2.6) LA Diam: 4.8 cm (2.7 - 3.8) MV EXCURSION: 18.959 mm (> 18.000) MV EF SLOPE: 77 mm/s (70 - 150) EPSS: 3.0 cm MV E Tyler: 0.59 m/s MV DecT: 239 ms MV A Tyler: 0.70 m/s MV E/A Ratio: 0.84 RAP: 5.00 mmHg RVSP: 31.53 mmHg FINDINGS -------- Sinus rhythm. This was a technically adequate study. The left ventricle is mildly dilated. There is moderate concentric left ventricular hypertrophy. There is severe global hypokinesis of LV . Overall left ventricular systolic function is severely i mpaired with, an EF between 25 - 30 %. The right ventricle is moderately enlarged. Left atrium is severely dilated by volume. The right atrial size is normal. Interatrial and interventricular septum intact. Aortic valve is trileaflet and is mildly thickened. The mitral valve leaflets are mildly thickened. Severe mitral regurgitation is present. [id number] tricuspid regurgitation present. Right ventricular systolic pressure is normal at < 35 mmHg. The right ventricular systolic pressure, as measured by Doppler, is 31.53mmHg. The aortic root size is normal. The inferior vena cava was not well visualized. There is no pericardial effusion. CONCLUSIONS -------- 1. Sinus rhythm. 2. This was a technically adequate study. 3. The left ventricle is mildly dilated. 4. There is moderate concentric left ventricular hypertrophy. 5. There is severe global hypokinesis of LV . 6. Overall left ventricular systolic function is severely impaired with, an EF between 25 - 30 %. 7. Left atrium is severely dilated by volume. 8. The right atrial size is normal. 9. Interatrial and interventricular septum intact. 10. Aortic valve is trileaflet and is mildly thickened. 11. The mitral valve leaflets are mildly thickened. 12. [id number]-wg-bpqlyegt tricuspid regurgitation present. 13. Right ventricular systolic pressure is normal at < 35 mmHg. 14. The right ventricular systolic pressure, as measured by Doppler, is 31.53mmHg. 15. The aortic root size is normal. 16. The inferior vena cava was not well visualized. 17. There is no pericardial effusion. MUSIC HISTORIAN: Shelly Infante RDCS
[2018-11-07 11:42] LABS: Glucose,Whole Blood 96 mg/dL (75-99)
--- NOTE | 2018-11-07 12:04 | P.CONS ---
History of Present Illness - Reason for Consult Consult date: 11/07/18 Abdominal pain Requesting physician: Jesus Talavera - Chief Complaint Abdominal pain - History of Present Illness 78-year-old male past medical history CAD, IBS, PCI stent, Clostridium difficile colitis, paroxysmal atrial fibrillation, COPD, CHF EF 20%, hypertension, PAD, r ight AKA, chronic kidney disease admitted with shortness of breath cough. Consult requested for abdominal pain. Patient states he has chronic sharp abdominal pain on a daily basis across his mid abdomen for several months duration. Patient states he is seen GI doctor in the past and prescribed medications possibly Bentyl without improvement. Last colonoscopy to his memory less than 3 years ago. Denies constipation or diarrhea. Denies hematemesis met easier weight loss or melena. Abdominal films no acute abnormality. Review of Systems Constitutional: Denies fever, chills, sweats, weight gain, or loss. HEENT: Negative for migraines, blurred vision or loss, earaches, drainage, tinnitus, oral mucosal lesions, dysphagia, or odynophagia. Cardiac: Negative for chest pain, arrhythmias, or palpitation. Respiratory: Negative for shortness of breath, hemoptysis, cough, or sputum production. Gastrointestinal: See HPI for pertinent findings. Genitourinary: Negative for hematuria, urgency, frequency, polyuria, dysuria, or penile discharge. Musculoskeletal: Negative for muscle aches, swelling, arthritis, and arthralgias. Neurologic: Negative for stroke or TIA. Endocrine: Negative for thyroid problems. Skin: Negative for rash or itching. Psychiatric: Negative history for depression and anxiety Past Medical History Past Medical History: Atrial Fibrillation, Coronary Artery Disease (CAD), Cance r, Chest Pain / Angina, Heart Failure, COPD, Dementia, GERD/Reflux, GI Bleed, Hearing Disorder / Deafness, Hyperlipidemia, Hypertension, Memory Impairment, Myocardial Infarction (MD), Musculoskeletal Disorder, Neurologic Disorder, Pneumonia, Prostate Disorder, Renal Disease, Seizure Disorder, Vascular Disorder Additional Past Medical History / Comment(s): Prostate cancer status post surgery/chemo and radiation, paroxysmal Afib, ischemic cardiomyopathy, bronchitis, PAD, chronic CHF, mild short term memory issues, bilateral ASA'CARSARMIUT/aides, CKD stage III, lower GI bleed, colitis, colon polyps-benign, anemia, parkinson's disease, insomnia, sinus problems, last seizure in 2011. Last Myocardial Infarction Date:: 03/10/18 History of Any Multi-Drug Resistant Organisms: C-DIFF Year Discovered:: August, MDRO Source:: Stool Past Surgical History: AICD, Heart Catheterization, Heart Catheterization With Stent, Prostate Surgery Additional Past Surgical History / Comment(s): Patient states he has had 8 or 9 stents placed in his heart, prostatectomy for cancer, right [id number] amputation for peripheral vascular disease May-2011, AICD placed on 08/22/2015, DFTs, L lower leg skin grafts d/t hatfield, colonoscopy. Past Anesthesia/Blood Transfusion Reactions: No Reported Reaction Additional Past Anesthesia/Blood Transfusion Reaction / Comm: Pt has received blood in past without reaction. Date of Last Stent Placement:: unknown Type of Cardiac Device: AICD Device Placement Date:: 08/22/15 Smoking Status: Former smoker - Past Family History Father Family Medical History: Myocardial Infarction (MD) Additional Family Medical History / Comment(s): Father at age 56 from a myocardial infarction. Mother Family Medical History: Cancer Additional Family Medical History / Comment(s): Mother at age 74 from bladder cancer with metastases to the bone. Brother(s) Family Medical History: Myocardial Infarction (MD) Additional Family Medical History / Comment(s): Patient had 1 brother that at age 60 from a myocardial infarction Sister(s) Family Medical History: Dementia, Musculoskeletal Disorder, Neurologic Disorder Additional Family Medical History / Comment(s): PARKINSONS Medications and Allergies Home Medications Medication Instructions Recorded Confirmed Type Omeprazole [PriLOSEC] 20 mg PO AC-BRKFST #30 01/27/14 11/05/18 Rx Isosorbide Mononitrate ER [Imdur] 30 mg PO DAILY 08/31/15 11/05/18 History Amiodarone [Cordarone] 200 mg PO DAILY 10/08/16 11/05/18 History Albuterol Nebulized [Ventolin 2.5 mg INHALATION RT-Q4H PRN 03/10/18 11/05/18 History Nebulized] hydrALAZINE HCL [Apresoline] 50 mg PO TID 03/10/18 11/05/18 History Carvedilol [Coreg] 3.125 mg PO BID-W/MEALS #60 tab 03/14/18 11/05/18 Rx Clopidogrel [Plavix] 75 mg PO DAILY #30 tab 03/14/18 11/05/18 Rx Nitroglycerin Sl Tabs [Nitrostat] 0.4 mg SUBLINGUAL Q5M PRN #25 tab 03/14/18 11/05/18 Rx Spironolactone [Aldactone] 12.5 mg PO DAILY #30 tab 03/14/18 11/05/18 Rx Albuterol Inhaler [Ventolin Hfa 2 puff INHALATION RT-Q4H PRN 11/05/18 11/05/18 History Inhaler] Aspirin EC [Ecotrin Low Dose] 81 mg PO DAILY 11/05/18 11/05/18 History Atorvastatin [Lipitor] 20 mg PO DAILY 11/05/18 11/05/18 History Fluticasone/Salmeterol [Advair Hfa 2 puff INHALATION RT-BID 11/05/18 11/05/18 History 230-21 Mcg Inhaler] Furosemide [Lasix] 20 mg PO DAILY 11/05/18 11/05/18 History Hyoscyamine Sulfate [Levbid] 0.375 mg PO Q12HR 11/05/18 11/05/18 History Levothyroxine Sodium [Synthroid] 25 mcg PO DAILY 11/05/18 11/05/18 History Allergies Allergy/AdvReac Type Severity Reaction Status Date / Time milk thistle (Silybum Allergy Severe Anaphylaxis Verified 11/04/18 22:08 marianum) Physical Exam Vitals: Vital Signs Temp Pulse Resp BP Pulse Ox 11/07/18 08:00 97.6 F 63 16 132/69 97 11/07/18 04:00 98.1 F 67 18 124/78 98 11/07/18 00:00 98.1 F 69 18 155/72 94 L 11/06/18 19:48 98.1 F 80 18 152/89 96 11/06/18 16:00 98.0 F 71 18 133/78 97 11/06/18 11:36 97.1 F L 76 16 125/66 94 L 11/06/18 10:40 16 Intake and Output 11/06/18 11/07/18 11/07/18 22:59 06:59 14:59 Intake Total 240 236 Output Total 150 950 Balance 90 -950 236 Intake: Oral 240 236 Output: Urine 150 950 Other: Voiding Method Urinal Urinal # Voids 1 1 Weight 67 kg General appearance: The patient is alert, oriented, in no acute distress. HET: Head is normocephalic and atraumatic. Pupils are equal and reactive. Oropharynx is clear without lesions. Neck: Supple without lymphadenopathy. Trachea midline. Heart: S1 S2. Regular rate and rhythm. Lungs: No crackles or wheezes are heard. Abdomen: Soft, mild tenderness across the midabdomen, nondistended with bowel sounds. No peritoneal signs. No palpable organomegaly or masses. Extremities: Right AKA. Neurological: No focal deficits. Strength and sensation are grossly intact. Results CBC & Chem 7: 11/07/18 05:44 11/07/18 05:44 Labs: Abnormal Lab Results - Last 24 Hours (Table) 11/06/18 11/06/18 11/06/18 Range/Units 11:44 16:42 20:56 WBC (3.8-10.6) k/uL RBC (4.30-5.90) m/uL Hgb (13.0-17.5) gm/dL Neutrophils # (1.3-7.7) k/uL Lymphocytes # (1.0-4.8) k/uL Carbon Dioxide (22-30) mmol/L BUN (9-20) mg/dL Creatinine (0.66-1.25) mg/dL Glucose (74-99) mg/dL POC Glucose (mg/dL) 100 H 150 H 126 H (75-99) mg/dL 11/07/18 11/07/18 11/07/18 Range/Units 05:44 05:44 06:01 WBC 14.8 H (3.8-10.6) k/uL RBC 4.00 L (4.30-5.90) m/uL Hgb 12.9 L (13.0-17.5) gm/dL Neutrophils # 13.9 H (1.3-7.7) k/uL Lymphocytes # 0.3 L (1.0-4.8) k/uL Carbon Dioxide 34 H (22-30) mmol/L BUN 48 H (9-20) mg/dL Creatinine 1.72 H (0.66-1.25) mg/dL Glucose 124 H (74-99) mg/dL POC Glucose (mg/dL) 134 H (75-99) mg/dL Abdominal x-ray: report reviewed (Dr. Woo) Assessment and Plan (1) Acute exacerbation of chronic obstructive airways disease Narrative/Plan: 78-year-old male admitted with exacerbation of COPD with underlying chronic abdominal pain possible IBS possible nonocclusive mesenteric ischemia with a history of coronary artery and peripheral vascular disease. Last colonoscopy reported less than 3 years ago. Presently without hematemesis hematochezia melena fever chills or weight loss. Current Visit: Yes Status: Acute Code(s): J44.1 - CHRONIC OBSTRUCTIVE PULMONARY DISEASE W (ACUTE) EXACERBATION SNOMED Code(s): 277415990 Plan: 1. Bentyl 10 mg 4 times a day. Diet as tolerated. Outpatient angiography CT was suggested for further evaluation of abdominal vasculature. Inpatient endoscopic exam not planned at this time. Advised to follow-up in the GI office in 2-3 weeks after discharge for reevaluation. Thank you for this kind referral and the opportunity to participate in the care of your patient. This consultation was discussed with Dr. Woo. The impression and plan of care have been directed as dictated.
[2018-11-07] MEDS ORDERED: DICYCLOMINE 10 MG CAP PO SCH (13:00)
[2018-11-07 16:35] LABS: Glucose,Whole Blood 164 mg/dL (75-99)
[2018-11-07] MEDS: DICYCLOMINE 20 MG TAB PO SCH ×2 (16:54→21:02)
[2018-11-07 20:47] LABS: Glucose,Whole Blood 112 mg/dL (75-99)
[2018-11-07] MEDS: ATORVASTATIN 20 MG TAB PO SCH (21:02)
--- NOTE | 2018-11-07 22:19 | PN ---
PROGRESS NOTE DATE OF SERVICE: 11/07/2018 PRESENTING COMPLAINT: Short of breath. INTERVAL HISTORY: Patient was admitted with COPD exacerbation, CHF exacerbation. Breathing is getting better. The patient has also had chronic lower abdominal pain that he has followed with Dr. Parnell for in the past. He wants a second opinion, which is pending on November 25. He has lower abdominal pain. Patient was started on Bentyl yesterday. REVIEW OF SYSTEMS: Done for constitutional, cardiovascular, GI, pulmonary; relevant findings as above. The patient had a flareup of lower abdominal pain, though patient is eating well, had a good bowel movement. CURRENT MEDICATIONS: Reviewed. They include: 1. DuoNeb. 2. IV Solu-Medrol. 3. IV Lasix. PHYSICAL EXAMINATION: Temperature 97.6, pulse 63, respiration 16, blood pressure 132/69, pulse ox 97% on room air. GENERAL APPEARANCE: Sitting up. Breathing is more comfortable. EYES: Pupils equal. Conjunctivae normal. NECK: JVD unable to assess. Mass not palpable. RESPIRATORY: Effort increased. LUNGS: Decreased breath sounds. Much improved wheezing. CARDIOVASCULAR: First and second sounds normal. No edema. ABDOMEN: Soft, non-tender. Liver and spleen not palpable. PSYCHIATRY: Alert and oriented x3. Mood and affect normal. INVESTIGATIONS: White count 14.8, hemoglobin 12.9, potassium 3.8, BUN 48, creatinine 1.72. ASSESSMENT: 1. Acute chronic obstructive pulmonary disease exacerbation in an ex-smoker. 2. Acute on chronic congestive heart failure exacerbation from systolic dysfunction, ejection fraction 20%, with underlying ischemic heart disease. 3. Coronary artery disease with multiple stents in the past. 4. Left bundle branch block. 5. Paroxysmal atrial fibrillation, currently in sinus rhythm. 6. Hyperlipidemia. 7. Essential hypertension. 8. Peripheral arterial disease with right above-knee amputation with prosthesis. 9. Automated implantable cardioverter defibrillator. 10.Chronic kidney disease, stage III, from nephrosclerosis. 11.Chronic abdominal pain. The patient's workup has been negative in the past, including colonoscopy. Could be bowel spasms. PLAN: I had a lengthy talk with the patient. Will increase the patient's Bentyl to 20 mg q.i.d. Will switch the patient over to oral Lasix, as kidney functions are starting to get a bit worse. The patient looks much better this evening. MMODL / IJN: [id number] /
[2018-11-08] MEDS: IPRATROPIUM-ALBUTEROL 3 ML NEB INHALATION SCH ×3 (03:27→11:31)
[2018-11-08 05:15] VITALS: TEMP 98.9
[2018-11-08 06:05] LABS: Glucose,Whole Blood 165 mg/dL (75-99)
[2018-11-08] MEDS: INSULIN ASPART (NovoLOG) 100 UNIT/ML VIAL SQ SCH (06:31)
[2018-11-08] MEDS: PANTOPRAZOLE 40 MG TABLET PO SCH (06:31)
[2018-11-08] MEDS: CARVEDILOL 3.125 MG TAB PO SCH (06:31)
[2018-11-08] MEDS: LEVOTHYROXINE 25 MCG TAB PO SCH (06:31)
[2018-11-08 06:32] LABS: Calcium 9.5 mg/dL (8.4-10.2)
--- NOTE | 2018-11-08 07:12 | XR ---
EXAMINATION TYPE: XR chest 2V DATE OF EXAM: 11/08/2018 COMPARISON: 11/07/2018 INDICATION: Follow-up CHF TECHNIQUE: Frontal and lateral views of the chest are obtained. FINDINGS: The heart size is normal. The pulmonary vasculature is normal. The lungs are clear. Pacemaker overlies left chest IMPRESSION: 1. No acute pulmonary process.
[2018-11-08] MEDS: SYMBICORT 160-4.5 MCG INHALER INHALATION SCH (07:53)
--- NOTE | 2018-11-08 08:15 | P.PN ---
Subjective Progress Note Date: 11/08/18 Principal diagnosis: Congestive heart failure secondary to systolic dysfunction, acute on chronic This is a 78-year-old gentleman with a past medical history significant for coronary artery disease, ischemic cardiomyopathy with a known ejection fraction of 20% based on echocardiogram was performed in 2018, status post AICD, paroxysmal atrial fibrillation, as well as multiple comorbid conditions, including advanced chronic kidney disease, presented to the hospital complaining of shortness of breath. The patient stated that he was in his usual state of health until about 3 days ago when he started experiencing progressive exertional dyspnea with orthopnea as well. He did not have any lower extremities edema. He stated that he did not gain weight. No symptoms of chest pain or chest discomfort but he did have abdominal discomfort and epigastric discomfort and he continues to have epigastric discomfort right now. On physical examination he does have epigastric tenderness. The abdominal x-ray in the emergency room did not show any evidence of acute abdomen. We get involved in the care of the patient for further evaluation and management of CHF. Currently the patient is on Lasix IV at 40 mg twice a day. The chest x-ray when he presented to the hospital did not show any acute abnormalities but the BNP came in to be severely elevated. The troponin came in to be mildly elevated as well. The patient underwent a heart catheterization in 2018 and he was found to have chronic total occlusion of the right coronary artery which was collateralized from the left coronary system. The left coronary system has mild disease only. This admission the EKG showed sinus rhythm with L BBB. Echocardiogram revealed severe cardiomyopathy. On follow-up with the patient today, November 082018, the patient is feeling better in terms of shortness of breath. No edema in the left lower extremity. He does have right [id number] amputation. The creatinine continues to be stable. Currently he is on Lasix by mouth. He was experiencing abdominal discomfort yesterday and he was seen by the GI service and initial impression was possible mesenteric ischemia and the recommendation is to have as an outpatient mesenteric CTA. I did recommend giving the patient for additional 24 hour for possible discharge home tomorrow. Objective - Vital Signs Vital signs: Vital Signs Temp 98.9 F 11/08/18 04:00 Pulse 54 L 11/08/18 04:00 Resp 18 11/08/18 04:00 BP 122/69 11/08/18 04:00 Pulse Ox 98 11/08/18 04:00 Intake & Output 11/07/18 11/08/18 11/08/18 18:59 06:59 18:59 Intake Total 502 10 Output Total 1000 400 Balance -498 -390 Weight 64.8 kg Intake: IV 10 .9 10 Oral 502 Output: Urine 1000 400 Other: Voiding Method Toilet Toilet Urinal Urinal # Voids 1 # Bowel Movements 2 - Constitutional General appearance: Present: no acute distress - Respiratory Respiratory: bilateral: diminished - Cardiovascular Heart sounds: normal: S1, S2 - Labs CBC & Chem 7: 11/07/18 05:44 11/08/18 05:40 Labs: Abnormal Lab Results - Last 24 Hours (Table) 11/07/18 11/07/18 11/08/18 Range/Units 16:34 20:46 05:40 BUN 56 H (9-20) mg/dL Creatinine 1.47 H (0.66-1.25) mg/dL Glucose 156 H (74-99) mg/dL POC Glucose (mg/dL) 164 H 112 H (75-99) mg/dL 11/08/18 Range/Units 06:03 BUN (9-20) mg/dL Creatinine (0.66-1.25) mg/dL Glucose (74-99) mg/dL POC Glucose (mg/dL) 165 H (75-99) mg/dL Assessment and Plan Assessment: Assessment #1 acute exacerbation of congestive heart failure secondary to systolic dysfunction #2 acute exacerbation of chronic obstructive pulmonary disease #3 severe ischemic cardiomyopathy with EF of 20% #4 status post AICD #5 known CAD with chronic total occlusion of the RCA #6 abdominal discomfort of unknown etiology #7 paroxysmal atrial fibrillation. Currently the patient is in normal sinus m echanism #8 severe peripheral arterial disease. Plan #1 continue the current dose of Lasix by mouth #2 continue monitor the kidney function and electrolytes for additional 24 hours #3 the echo showed severe cardiomyopathy was EF between 25-30% #4 follow-up with the patient Thank you for allowing us participate in his care
[2018-11-08] MEDS ORDERED: FUROSEMIDE 40 MG TAB PO SCH (09:00)
[2018-11-08] MEDS: AMIODARONE 200 MG TAB PO SCH (09:22)
[2018-11-08] MEDS: ASPIRIN 81 MG PO SCH (09:22)
[2018-11-08] MEDS: CLOPIDOGREL 75 MG TAB PO SCH (09:23)
[2018-11-08] MEDS: hydrALAZINE HCL 50 MG TAB PO SCH (09:23)
[2018-11-08] MEDS: HYOSCYAMINE SULFATE 0.375 MG TAB.ER.12H PO SCH (09:23)
[2018-11-08] MEDS: ISOSORBIDE MONONITRATE ER 30 MG TAB.ER.24H PO SCH (09:23)
[2018-11-08] MEDS: SPIRONOLACTONE 25 MG TAB PO SCH (09:23)
[2018-11-08] MEDS: DICYCLOMINE 20 MG TAB PO SCH (09:23)
[2018-11-08] MEDS: methylPREDNISolone SOD SUCCI 40 MG/ML 1 ML VIAL IV SCH (09:23)
[2018-11-08 11:08] VITALS: BP 139/66; PULSE 56; RESP 20
--- NOTE | 2018-11-08 11:52 | P.DS ---
Providers Date of admission: 11/04/18 23:45 Attending physician: Jesus Talavera Consults: 11/06/18 16:24 Consult Physician Stat Consulting Provider: Batsheva Parnell Consult Reason/Comments: abd pain Do you want consulting provider notified?: Yes 11/06/18 23:19 Consult Physician Routine Consulting Provider: Bisi Salazar Consult Reason/Comments: chf Do you want consulting provider notified?: Yes Primary care physician: [facility] Course: 70-year-old male was admitted for congestive heart failure chronic systolic dysfunction with acute exacerbation along with COPD exacerbation patient co ntinues to smoke patient is willing to quit this time. Patient is presently euvolemic and will be discharged today. Patient has an AICD placed patient does have atrial fibrillation will be started on Eliquis as well. Will check for the insurance covers for this medication. PHYSICAL EXAMINATION: GENERAL: The patient is alert and oriented x3, not in any acute distress. Well developed, well nourished. HEENT: Pupils are round and equally reacting to light. EOMI. No scleral icterus. No conjunctival pallor. Normocephalic, atraumatic. No pharyngeal erythema. No thyromegaly. CARDIOVASCULAR: S1 and S2 present. No murmurs, rubs, or gallops. PULMONARY: Chest is clear to auscultation, no wheezing or crackles. ABDOMEN: Soft, nontender, nondistended, normoactive bowel sounds. No palpable or ganomegaly. MUSCULOSKELETAL: No joint swelling or deformity. EXTREMITIES: No cyanosis, clubbing, or pedal edema. right below-knee amputation NEUROLOGICAL: Gross neurological examination did not reveal any focal deficits. SKIN: No rashes. for other chronic medical problems has physician course please refer to dictation from Dr. Talavera from yesterday Patient Condition at Discharge: Stable Plan - Discharge Summary Discharge Rx Participant: No New Discharge Prescriptions: New Furosemide [Lasix] 40 mg PO DAILY #30 tab predniSONE 10 mg PO DAILY #30 tab Apixaban [Eliquis] 5 mg PO BID #60 tab Continue Omeprazole [PriLOSEC] 20 mg PO AC-BRKFST #30 Isosorbide Mononitrate ER [Imdur] 30 mg PO DAILY Amiodarone [Cordarone] 200 mg PO DAILY Albuterol Nebulized [Ventolin Nebulized] 2.5 mg INHALATION RT-Q4H PRN PRN Reason: Shortness Of Breath hydrALAZINE HCL [Apresoline] 50 mg PO TID Carvedilol [Coreg] 3.125 mg PO BID-W/MEALS #60 tab Clopidogrel [Plavix] 75 mg PO DAILY #30 tab Nitroglycerin Sl Tabs [Nitrostat] 0.4 mg SUBLINGUAL Q5M PRN #25 tab PRN Reason: Chest Pain Spironolactone [Aldactone] 12.5 mg PO DAILY #30 tab Levothyroxine Sodium [Synthroid] 25 mcg PO DAILY Hyoscyamine Sulfate [Levbid] 0.375 mg PO Q12HR Atorvastatin [Lipitor] 20 mg PO DAILY Aspirin EC [Ecotrin Low Dose] 81 mg PO DAILY Albuterol Inhaler [Ventolin Hfa Inhaler] 2 puff INHALATION RT-Q4H PRN PRN Reason: Shortness Of Breath Fluticasone/Salmeterol [Advair Hfa 230-21 Mcg Inhaler] 2 puff INHALATION RT- BID Discontinued Furosemide [Lasix] 20 mg PO DAILY Discharge Medication List Omeprazole [PriLOSEC] 20 mg PO AC-BRKFST #30 01/27/14 [Rx] Isosorbide Mononitrate ER [Imdur] 30 mg PO DAILY 08/31/15 [History] Amiodarone [Cordarone] 200 mg PO DAILY 10/08/16 [History] Albuterol Nebulized [Ventolin Nebulized] 2.5 mg INHALATION RT-Q4H PRN 03/10/18 [History] hydrALAZINE HCL [Apresoline] 50 mg PO TID 03/10/18 [History] Carvedilol [Coreg] 3.125 mg PO BID-W/MEALS #60 tab 03/14/18 [Rx] Clopidogrel [Plavix] 75 mg PO DAILY #30 tab 03/14/18 [Rx] Nitroglycerin Sl Tabs [Nitrostat] 0.4 mg SUBLINGUAL Q5M PRN #25 tab 03/14/18 [Rx] Spironolactone [Aldactone] 12.5 mg PO DAILY #30 tab 03/14/18 [Rx] Albuterol Inhaler [Ventolin Hfa Inhaler] 2 puff INHALATION RT-Q4H PRN 11/05/18 [History] Aspirin EC [Ecotrin Low Dose] 81 mg PO DAILY 11/05/18 [History] Atorvastatin [Lipitor] 20 mg PO DAILY 11/05/18 [History] Fluticasone/Salmeterol [Advair Hfa 230-21 Mcg Inhaler] 2 puff INHALATION RT-BID 11/05/18 [History] Hyoscyamine Sulfate [Levbid] 0.375 mg PO Q12HR 11/05/18 [History] Levothyroxine Sodium [Synthroid] 25 mcg PO DAILY 11/05/18 [History] Apixaban [Eliquis] 5 mg PO BID #60 tab 11/08/18 [Rx] Furosemide [Lasix] 40 mg PO DAILY #30 tab 11/08/18 [Rx] predniSONE 10 mg PO DAILY #30 tab 11/08/18 [Rx] Follow up Appointment(s)/Referral(s): Mark Clark MD [Primary Care Provider] - 3 Days [facility] [NON-STAFF] - Discharge Disposition: HOME WITH HOME HEALTH SERVICES
== END 2018-11-08 12:20 | disposition home health service (06) | DRG 291 ==
LOC: EC 21:38 → 2SICU 23:45 → 3SCARD 11-05 05:42
PROVIDERS: ADMIT Hospitalist; ATTEND Hospitalist
DX: I13.0 Hypertensive heart and chronic kidney disease with heart failure and stage 1 through stage 4 chronic kidney disease, or unspecified chronic kidney disease (principal); I50.23 Acute on chronic systolic (congestive) heart failure; J44.1 Chronic obstructive pulmonary disease with (acute) exacerbation; K55.9 Vascular disorder of intestine, unspecified; E03.9 Hypothyroidism, unspecified; E78.5 Hyperlipidemia, unspecified; F02.80 Dementia in other diseases classified elsewhere, unspecified severity, without behavioral disturbance, psychotic disturbance, mood disturbance, and anxiety; G20 Parkinson's disease; F31.9 Bipolar disorder, unspecified; G40.909 Epilepsy, unspecified, not intractable, without status epilepticus; G89.29 Other chronic pain; H91.90 Unspecified hearing loss, unspecified ear; I25.10 Atherosclerotic heart disease of native coronary artery without angina pectoris; I25.5 Ischemic cardiomyopathy; K21.9 Gastro-esophageal reflux disease without esophagitis; N18.3 Chronic kidney disease, stage 3 (moderate); G47.00 Insomnia, unspecified; K58.9 Irritable bowel syndrome, unspecified; I25.82 Chronic total occlusion of coronary artery; I44.7 Left bundle-branch block, unspecified; I48.0 Paroxysmal atrial fibrillation; I73.9 Peripheral vascular disease, unspecified; I25.2 Old myocardial infarction; Z87.891 Personal history of nicotine dependence; Z85.46 Personal history of malignant neoplasm of prostate; Z92.3 Personal history of irradiation; Z92.21 Personal history of antineoplastic chemotherapy; Z95.5 Presence of coronary angioplasty implant and graft; Z89.611 Acquired absence of right leg above knee; Z95.810 Presence of automatic (implantable) cardiac defibrillator; Z86.010 Personal history of colon polyps; Z91.09 Other allergy status, other than to drugs and biological substances; Z79.02 Long term (current) use of antithrombotics/antiplatelets; Z79.51 Long term (current) use of inhaled steroids; Z79.82 Long term (current) use of aspirin; Z79.890 Hormone replacement therapy; Z79.899 Other long term (current) drug therapy; Z80.52 Family history of malignant neoplasm of bladder; Z82.0 Family history of epilepsy and other diseases of the nervous system; Z82.49 Family history of ischemic heart disease and other diseases of the circulatory system; Z86.19 Personal history of other infectious and parasitic diseases
CPT/HCPCS: 36415; 71046; 74018; 80048; 80053; 81003; 83735; 83880; 84484; 85025; 85610; 85730; 93005; 93306; 94640; 94760; 96365; 96366; 96375; 96376; 99285